=== PATIENT | male | born 1990 | race African-American/Black ===

== ENCOUNTER 2025-01-23 11:06 | Outpatient (CLI) | payer OTHER, SELFPAY ==
[2025-01-23 11:52] LABS: Alanine Aminotransferase 92 U/L (6-50); Alkaline Phosphatase 85 U/L (38-126); Anion Gap 10 mmol/L (4-12); Aspartate Amino Transferase 44 U/L (17-59); Bilirubin,Total 0.5 mg/dL (0.2-1.3); Blood Urea Nitrogen 11 mg/dL (9-20); Calcium 9.4 mg/dL (8.4-10.2); Carbon Dioxide 26 mmol/L (22-30); Chloride 105 mmol/L (98-107); Estimated Glomerular Filt Rate > 60; Glucose 102 mg/dL (65-110); Potassium 4.3 mmol/L (3.4-5.0); Sodium 141 mmol/L (137-145)
[2025-01-23 12:23] LABS: Free T4 Free Thyroxine 1.85 ng/dL (0.78-2.19); Thyroid Stimulating Hormone 0.707 uIU/mL (0.465-4.680); Vitamin D 25 Hydroxy 33.2 ng/mL
[2025-01-23 12:40] LABS: Hemoglobin A1C 5.4 % (<5.7)
--- OUTSIDE RECORDS SUMMARY | 2025-01-23 16:26 | XMS_ITS | Clinical Summary ---
Author Organization [facility] Address [address] [place] [address] Care Team Providers Care Heating Equipment Installer Name Role Phone None, Provider MD Primary Care Provider Unavaila ble Allergies Active Allergy Reactions Criticality Noted Date Comments Amoxicillin Other (see comment) 01/30/2022 Pt reports he is unsure of reaction Medications levothyroxine (SYNTHROID) 125 MCG tablet Take 1 tablet (125 mcg total) by mouth every 7 days. Active levothyroxine (SYNTHROID) 150 MCG tablet Take 1 tablet (150 mcg total) by mouth 6 (six) times a week. Active Vitamin D3 (VITAMIN D) 50 mcg tablet Take 25 tablets (50,000 Units total) by mouth daily. Active Azelastine HCl 0.15 % Solution 1 spray by Nasal route 2 (two) times a day. 11 mL 12/09/2023 Active albuterol sulfate HFA 108 (90 Base) MCG/ACT inhaler Inhale 2 puffs into the lungs every 6 (six) hours as needed for Wheezing. 8 g 12/21/2024 Active Encounters Date Type Department Care Team Description 12/20/2024 10:59 PM CDT - 12/21/2024 12:13 AM CDT Emergency [facility] [place] [address] Cheli Retana PA Flu Like Symptoms Discharge Disposition: Home or Self Care (Routine Discharge) 12/20/2024 Travel from Last 3 Months Social History Tobacco Use Types Packs/Day Years Used Date Smoking Tobacco: Never Smokeless Tobacco: Never Alcohol Use Standard Drinks/Week Comments Never 0 (1 standard drink = 0.6 oz pur e alcohol) Sex and Gender Information Value Date Recorded Sex Assigned at Not on file Legal Sex Male 9:00 AM CDT Gender Identity Not on file Sexual Orientation Not on file Last Filed Vital Signs Vital Sign Reading Time Taken Comments Blood Pressure 149/85 12/20/2024 10:37 PM CDT Pulse 81 12/20/2024 10:37 PM CDT Temperature 37.2 C (98.9 F) 12/20/2024 10:37 PM CDT Respiratory Rate 18 12/20/2024 10:37 PM CDT Oxygen Saturation 96% 12/20/2024 10:37 PM CDT Inhaled Oxygen Concentration - - Weight 104.3 kg (230 lb) 12/20/2024 10:37 PM CDT Height 175.3 cm (5' 9 ) 12/20/2024 10:37 PM CDT Body Mass Index 33.97 12/20/2024 10:37 PM CDT Plan of Treatment Health Maintenance Due Date Last Done Comments Annual Physical 1994 Hepatitis C 2009 COVID-19 Vaccine ( season) 2024 01/06/2021, 12/08/2020 DTaP, Tdap and Td Vaccines (8 - Td or Tdap) 09/05/2030 09/05/2020, 08/31/2010, 08/10/2003, Additional history exists Hepatitis B Vaccines Completed 12/20/1999, 04/24/1999, 09/02/1998 Meningococcal Vaccine Completed 08/31/2010, 007 HPV Vaccines Completed 03/16/2019, 07/25, 06/09/2012 Meningococcal B Vaccine Aged Out No l onger eligible based on patient's age to complete this topic Pneumococcal Vaccine: Pediatrics (0 to 5 Years) and At-Risk Patients (6 to 49 Years) Aged Out No longer eligible based on patient's age to complete this topic RSV Immunizations Under 20 Months Aged Out No longer eligible based on patient's age to complete this topic Procedures Procedure Name Priority Date/Time Associated Diagnosis Comments XR CHEST PORTABLE STAT 12/20/2024 11: 19 PM CDT STREP A RAPID STAT 12/20/2024 10:54 PM CDT INFLUENZA A & B STAT 12/20/2024 10:54 PM CDT CORONAVIRUS (COVID 19) STAT 12/20/2024 10:54 PM CDT from Last 3 Months Results * XR CHEST PORTABLE (12/20/2024 11:19 PM CDT) Anatomical Region Laterality Modality Chest Radiographic Cristy ging 12/20/2024 11:3 6 PM CDT Impressions 12/20/2024 11:38 PM CDT IMPRESSION: No acute chest disease identified. Referred By: Interpreted By: Misael Callejas MD, 12/20/2024 11:36 PM Narrative 12/20/2024 11:38 PM CDT [place] [address] Examination: XR CHEST PORTABLE Exam time: 12/20/2024 10:56 PM Clinical history: Cough and shortness of breath. Comparison: No comparison. Technique: AP image of the chest. Findings: The cardiomediastinal silhouette appears normal. There is no pulmonary consolidation, pleural effusion or pneumothorax. The pulmonary vasculature appears normal. Procedure Note Misael Callejas MD - 12/20/[address] [address] Examination: XR CHEST PORTABLE Exam time: 12/20/2024 10:56 PM Clinical history: Cough and shortness of breath. Comparison: No comparison. Technique: AP image of the chest. Findings: The cardiomediastinal silhouette appears normal. There is no pulmonaryconsolidation, pleural effusion or pneumothorax. The pulmonary vasculatureappears normal. IMPRESSION: No acute chest disease identified. Referred By: Interpreted By: Misael Callejas MD, 12/20/2024 11:36 PM [facility] Final Result * CORONAVIRUS (COVID 19) (12/20/2024 10:54 PM CDT) CORONAVIRUS SARS COV 2 RNA NEGATIVE NEGATIVE 12/20/2024 11:16 PM CDT [facility] Comment: NEGATIVE RESULTS DO NOT RULE OUT COVID 19 AND SHOULD NOT BE USED THE SOLE BASIS FOR TREATMENT OR PATIENT MANAGEMENT DECISIONS, INCLUDING INFECTION CONTROL DECISIONS. NEGATIVE RESULTS SHOULD BE CONSIDERED IN THE CONTEXT OF A PATIENT'S RECENT EXPOSURES, HISTORY AND THE PRESENCE OF CLINICAL SIGNS AND SYMPTOMS CONSISTENT WITH COVID 19. THE ID NOW COVID-19 2.0 TEST HAS BEEN AUTHORIZED BY THE FDA UNDER EAU FOR USE BY AUTHORIZED LABORATORIES. PERFORMED BY NUCLEIC ACID AMPLIFICATION FOR MOLECULAR QUALITATIVE DETECTION OF SARS-COV-2. SPECIMEN TYPE NASAL 12/20/2024 10:54 PM CDT [facility] NASAL STRUCTURE / Unknown 12/20/2024 10:54 PM CDT [facility] - GENERAL ORDERAB LES Final Result [facility] [address] [place] [address], [place] [phone] * INFLUENZA A & B (12/20/2024 10:54 PM CDT) SPECIMEN TYPE SWAB 12/20/2024 11:00 PM CDT [facility] INFLUENZA A NEGATIVE NEGATIVE 12/20/2024 11:23 PM CDT [facility] INFLUENZA B NEGATIVE NEGATIVE 12/20/2024 11:23 PM CDT [facility] Comment: Interpretation: Negative for Influenza A and B. A negative result does not exclude influenza virus infection. If influenza is circulating in your community, a diagnosis of influenza should be considered based on a patient's clinical presentation and empiric antiviral treatment should be considered, if indicated. If more conclusive testing is needed for hospitalized inpatients, follow-up confirmatory testing with RT-PCR requires a separate order. NASAL STRUCTURE / Unknown 12/20/2024 10:54 PM CDT [facility] - GENERAL ORDERAB LES Final Result [facility] [address] [place] [id number], [place] [phone] * STREP A RAPID (12/20/2024 10:54 PM CDT) SPECIMEN TYPE THROAT 12/20/2024 10:54 PM CDT [facility] RAPID STREP TEST NEGATIVE NEGATIVE 12/20/2024 11:14 PM CDT [facility] STRUCTURE OF ANTERIOR PORTION OF NECK / Unknown 12/20/2024 10:54 PM CDT [facility] - GENERAL ORDERAB LES Final Result Performing Organization Address City/[facility]/ZIP Co de Phone Number [facility] [address] [place] [address], [place] [phone] from Last 3 Months Insurance [facility] Care Teams Heating Equipment Installer Relationship Specialty Start Date End Date None, Provider, PCP - General UNKNOWN PHYSICIAN SPECIALTY 12/09/23
--- OUTSIDE RECORDS SUMMARY | 2025-01-23 16:27 | XMS_ITS | Clinical Summary ---
Author Organization [facility] Address [address] [place] [address] Care Team Providers Care Instructor Creeler Name Role Phone Manny Serrato PA-C Primary Care Provider Source Comments [facility],non-owned Affiliates and Associated Physician Practices is amultiple site organization consisting of ambulatory clinics and hospital sitesin [place], [place], [place] and [place]. This disclosure is being madepursuant to the Care Everywhere program and may not contain all information available regarding this patient. Last updated 18.[facility] Allergies Active Allergy Reactions Criticality Noted Date Comments Amoxicillin Urticaria,Rash Medium 10/08/1993 Medications * Be aware that medications may not be up to date on this document. Alwaysverify current medications with the patient. No known medications Immunizations Immunization Administration Dates Next Due INFLUENZA VACCINE, TRIV. (AF LURIA, FLUZONE TRIVALENT; 6MO+) (IIV3) 07/28/2012,05/14/2011 ANTHRAX, HISTORIC VACCINE 12/28/2011,,01/03/2011,11/28 Covid Moderna primary monova lent 12+ yr 0.5mL 01/06/2021,12/08/2020 DTP 07/08/1996, 4,07/11/1992,04/18,1991 FLU VACCINE QUAD IIV4 SPLIT 0.25 ML IM 6 HEP B VACCINE, PED/ADOL 12/20/1999,04/24/1999, HIB VACCINE 03/06/1994, 2,04/18/1992,12/20 Human Papilloma Virus Nineva lent Vaccine 03/16/2019 Human Papilloma Virus Justine valent Vaccine 08/13/2012,06/09/2012 INFLUENZA VACCINE 06/23/2021 INFLUENZA VACCINE, CELL CULT URE, QUADR. (FLUCELVAX QUADRIVALENT; 6MO+), 0.5 ML (CCIIV4) 07/04/2017 INFLUENZA VACCINE, QUADR. (A FLURIA, FLUZONE QUADRIVALENT; 6MO+) (IIV4) 08/31/2010,08/10/2003 INFLUENZA VACCINE, QUADR. (F LUZONE; FLULAVAL; FLUARIX; AFLURIA QUADRIVALENT; 6MO+), 0.5 ML (IIV4) 08/29/2020,06/19/2019,07/03/2018 LEDA VACCINE QUAD LAIV4 PF NASAL 08/16/2015,2013,06/03/2013 MENINGOCOCCAL ACWY (MCV4P) VAC IM 08/31/2010, MMR 07/08/1996,03/06/1994 POLIO IPV 08/31/2010 POLIO OPV 07/08/1996, 4,04/18/1992,12/20 SMALLPOX (VACCINIA) VACCINE, LIVE 11/28/2010 TDAP (7yrs+) 08/31/2010 TYPHOID IM 06/16/2019,01/20/2015,11/28/2010 Td (Adult), 2 Lf Tetanus Tox oid, Adsorbed, Pf 09/05/2020,08/10/2003 Family History Medical History Relation Name Comments Diabetes - Type 2 Maternal Grandmother Bipolar Disorder Mother Depression Mother Relation Name Status Comments Father Alive Maternal Grandfather Alive Maternal Grandmother Alive Mother Alive Social History Tobacco Use Types Packs/Day Years Used Date Smoking Tobacco: Never Smokeless Tobacco: Never Alcohol Use Standard Drinks/Week Comments Yes 0 (1 standard drink = 0.6 oz pur e alcohol) occ AUDIT-C Answer Date Recorded Q1: How often do you have a drink containing alc ohol? Monthly or less 10/23/2021 Q2: How many drinks containi ng alcohol do you have on a typical day when you are drinking? 1 or 2 10/23/2021 Q3: How often do you have si x or more drinks on one occasion? Never 10/23/2021 PHQ-2 Answer Date Recorded PHQ2 TOTAL SCORE 0 10/23/2021 Sex and Gender Information Value Date Recorded Sex Assigned at Not on file Legal Sex Male 2:21 PM ENGINE MECHANIC Gender Identity Not on file Sexual Orientation Not on file Last Filed Vital Signs Vital Sign Reading Time Taken Comments Blood Pressure 118/72 10/23/2021 1:52 PM ENGINE MECHANIC Pulse 90 10/23/2021 1:52 PM ENGINE MECHANIC Temperature 36.8 C (98.2 F) 10/23/2021 1:52 PM ENGINE MECHANIC Respiratory Rate - - Oxygen Saturation 97% 10/23/2021 1:52 PM ENGINE MECHANIC Inhaled Oxygen Concentration - - Weight 81.5 kg (179 lb 9.6 oz) 10/23/2021 1:52 P M ENGINE MECHANIC Height - - Body Mass Index - - Plan of Treatment Health Maintenance Due Date Last Done Comments HIV SCREENING 2006 HEPATITIS C SCREENING 10/11/2009 COVID-19 VACCINE ( season) 2024 01/06/2021, 12/08/2020 DEPRESSION SCREENING 09/23/2024 INFLUENZA VACCINE (Season Ended) 2025 06/23/2021, 08/29/2020, 06/19/2019, Additional history exists DTAP/TDAP/TD VACCINES (8 - Td or Tdap) 09/05/2030 09/05/2020, 08/31/2010, 08/10/2003, Additional history exists ZOSTER VACCINE (1 of 2) 2041 HIB VACCINE Completed 03/06/1994, 06/23, 04/18/1992, Additional history exists HEPATITIS B VACCINE Completed 12/20/1999, 04/24/1999, 09/02/1998 MENINGOCOCCAL GROUPS A/C/Y/W VACCINE Completed 08/31/2010, 07/22/2007 HPV VACCINE Completed 03/16/2019, 07/25, 06/09/2012 MENINGOCOCCAL (Group B) VACCINE SHARED DECISION-MAKING Aged Out No longer eligible based on patient's age to complete this topic PNEUMOCOCCAL VACCINE Aged Out No long er eligible based on patient's age to complete this topic Insurance [employer] Care Teams Instructor Creeler Relationship Specialty Start Date End Date Manny Serrato PA-C [address] [phone] PCP - General 10/20/21
--- OUTSIDE RECORDS SUMMARY | 2025-01-23 16:27 | XMS_ITS | Continuity of Care Document ---
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 1 2009 [id number] 115 [facility] ([facility]) complet ed tetanus toxoid, reduced diphtheri a toxoid, and acellular pertussis vaccine, adsorbed DoD meningococcal A,C,Y,W-135 (MCV4P) 2006 [id number] 114 sanofi pasteur complet ed meningoco ccal A,C,Y,W-1 35 (MCV4P) 07/22/07 Given Ambulat ory Pharmac y meningococcal polysaccharid e (groups A, C, Y and W-135) diphtheria toxoid conjugate vaccine (MCV4P) 1 2006 [id number] 114 Sanofi Pasteur ([facility]) complet ed meningoco ccal polysacch aride (groups A, C, Y and W-135) diphtheri a toxoid conjugate vaccine (MCV4P) DoD Hep A, pediatric, unspecified formul 2003 [id number] 2 31 [employer] ne complet ed Hep A, pediatric , unspecifi ed formul 05/23/04 Given Ambulat ory Pharmac y hepatitis A vaccine, pediatric dosage, unspecified formulation 2 2003 [id number] 2 31 [employer] ([facility]) complet ed hepatitis A vaccine, pediatric dosage, unspecifi ed formulati on DoD Hep A, pediatric, unspecified formul 2002 [id number] 2 31 GlaxoSmithK[employer] ne complet ed Hep A, pediatric , unspecifi ed formul 08/10/03 Given Ambulat ory Pharmac y influenza virus vaccine,split 2002 [id number] 15 Nov[employer]is [employer] ls complet ed influenza virus vaccine,s plit 08/10/03 Given Ambulat ory Pharmac y tetanus-dipht h toxoids (Td) adult/adol 2002 [id number] 09 sanofi pasteur complet ed tetanus-d iphth toxoids (Td) adult/ado l 08/10/03 Given Ambulat ory Pharmac y tetanus and diphtheria toxoids, adsorbed, preservative free, for adult use (2 Lf of tetanus toxoid and 2 Lf of diphtheria toxoid) 1 2002 [id number] 09 Sanofi Pasteur ([facility]) complet ed tetanus and diphtheri a toxoids, adsorbed, preservat chapito free, for adult use (2 Lf of tetanus toxoid and 2 Lf of diphtheri a toxoid) DoD influenza virus vaccine, split virus (incl. purified surface antigen)-reti red CODE 1 2002 [id number] 15 [employer] (PWJ) complet ed influenza virus vaccine, split virus (incl. purified surface antigen)- retired CODE DoD influenza virus vaccine, whole virus 0 2002 [id number] 16 [employer] (PWJ) complet ed influenza virus vaccine, whole virus DoD varicella virus vaccine 0 2002 21 () Not Given varicella virus vaccine DoD hepatitis A vaccine, pediatric dosage, unspecified formulation 1 2002 [id number] 2 31 SmithKline ([facility]) complet ed hepatitis A vaccine, pediatric dosage, unspecifi ed formulati on DoD hepatitis B pediatric/ado lescent 1999 [id number] 08 Merck & Company Inc complet ed hepatitis B pediatric /adolesce nt 12/20/99 Given Ambulat ory Pharmac y hepatitis B vaccine, pediatric or pediatric/ado lescent dosage 3 1999 [id number] 08 Merck (MSD) complet ed hepatitis B vaccine, pediatric or pediatric /adolesce nt dosage DoD hepatitis B pediatric/ado lescent 1998 08 complet ed hepatitis B pediatric /adolesce nt 04/24/99 Given Ambulat ory Pharmac y hepatitis B vaccine, pediatric or pediatric/ado lescent dosage 2 1998 08 () complet ed hepatitis B vaccine, pediatric or pediatric /adolesce nt dosage DoD hepatitis B pediatric/ado lescent 1997 [id number] 08 Merck & Company Inc complet ed hepatitis B pediatric /adolesce nt 09/02/98 Given Ambulat ory Pharmac y hepatitis B vaccine, pediatric or pediatric/ado lescent dosage 1 1997 [id number] 08 Merck (MSD) complet ed hepatitis B vaccine, pediatric or pediatric /adolesce nt dosage DoD measles/mumps /rubella virus vaccine 1995 TRANSCR IBED 03 Unknown complet ed measles/m umps/rube lla virus vaccine 07/08/96 Given Ambulat ory Pharmac y diphtheria/te tanus toxoids/pertu is 1995 TRANSCR IBED 01 Unknown complet ed diphtheri a/tetanus toxoids/p ertussis 07/08/96 Given Ambulat ory Pharmac y poliovirus vaccine, live, oral 1995 TRANSCR IBED 02 Unknown complet ed polioviru s vaccine, live, oral 07/08/96 Given Ambulat ory Pharmac y diphtheria, tetanus toxoids and pertu is vaccine 5 1995 01 Other (OTH) complet ed diphtheri a, tetanus toxoids and pertussis vaccine DoD trivalent poliovirus vaccine, live, oral 4 1995 02 Other (OTH) complet ed trivalent polioviru s vaccine, live, oral DoD measles, mumps and rubella virus vaccine 2 1995 03 Other (OTH) complet ed measles, mumps and rubella virus vaccine DoD Hib, unspecified formulation 1993 TRANSCR IBED 17 Unknown complet ed Hib, unspecifi ed formulati on 03/06/94 Given Ambulat ory Pharmac y measles/mumps /rubella virus vaccine 1993 TRANSCR IBED 03 Unknown complet ed measles/m umps/rube lla virus vaccine 03/06/94 Given Ambulat ory Pharmac y poliovirus vaccine, live, oral 1993 TRANSCR IBED 02 Unknown complet ed polioviru s vaccine, live, oral 03/06/94 Given Ambulat ory Pharmac y diphtheria/te tanus toxoids/pertu is 1993 TRANSCR IBED 01 Unknown complet ed diphtheri a/tetanus toxoids/p ertussis 03/06/94 Given Ambulat ory Pharmac y diphtheria, tetanus toxoids and pertu is vaccine 4 1993 01 Other (OTH) complet ed diphtheri a, tetanus toxoids and pertussis vaccine DoD trivalent poliovirus vaccine, live, oral 3 1993 02 Other (OTH) complet ed trivalent polioviru s vaccine, live, oral DoD measles, mumps and rubella virus vaccine 1 1993 03 Other (OTH) complet ed measles, mumps and rubella virus vaccine DoD Haemophilus influenzae type b vaccine, conjugate unspecified formulation 4 1993 17 Other (OTH) complet ed Haemophil us influenza e type b vaccine, conjugate unspecifi ed formulati on DoD Hib, unspecified formulation 1991 TRANSCR IBED 17 Unknown complet ed Hib, unspecifi ed formulati on 07/11/92 Given Ambulat ory Pharmac y diphtheria/te tanus toxoids/pertu is 1991 TRANSCR IBED 01 Unknown complet ed diphtheri a/tetanus toxoids/p ertussis 07/11/92 Given Ambulat ory Pharmac y diphtheria, tetanus toxoids and pertu is vaccine 3 1991 01 Other (OTH) complet ed diphtheri a, tetanus toxoids and pertussis vaccine DoD Haemophilus influenzae type b vaccine, conjugate unspecified formulation 3 1991 17 Other (OTH) complet ed Haemophil us influenza e type b vaccine, conjugate unspecifi ed formulati on DoD Hib, unspecified formulation 1991 TRANSCR IBED 17 Unknown complet ed Hib, unspecifi ed formulati on 04/18/92 Given Ambulat ory Pharmac y diphtheria/te tanus toxoids/pertu is 1991 TRANSCR IBED 01 Unknown complet ed diphtheri a/tetanus toxoids/p ertussis 04/18/92 Given Ambulat ory Pharmac y poliovirus vaccine, live, oral 1991 TRANSCR IBED 02 Unknown complet ed polioviru s vaccine, live, oral 04/18/92 Given Ambulat ory Pharmac y diphtheria, tetanus toxoids and pertu is vaccine 2 1991 01 Other (OTH) complet ed diphtheri a, tetanus toxoids and pertussis vaccine DoD trivalent poliovirus vaccine, live, oral 2 1991 02 Other (OTH) complet ed trivalent polioviru s vaccine, live, oral DoD Haemophilus influenzae type b vaccine, conjugate unspecified formulation 2 1991 17 Other (OTH) complet ed Haemophil us influenza e type b vaccine, conjugate unspecifi ed formulati on DoD diphtheria/te tanus toxoids/pertu is 1991 TRANSCR IBED 01 Unknown complet ed diphtheri a/tetanus toxoids/p ertussis 91 Given Ambulat ory Pharmac y Hib, unspecified formulation 1991 TRANSCR IBED 17 Unknown complet ed Hib, unspecifi ed formulati on 91 Given Ambulat ory Pharmac y poliovirus vaccine, live, oral 1991 TRANSCR IBED 02 Unknown complet ed polioviru s vaccine, live, oral 91 Given Ambulat ory Pharmac y diphtheria, tetanus toxoids and pertu is vaccine 1 1991 01 Other (OTH) complet ed diphtheri a, tetanus toxoids and pertussis vaccine DoD trivalent poliovirus vaccine, live, oral 1 1991 02 Other (OTH) complet ed trivalent polioviru s vaccine, live, oral DoD Haemophilus influenzae type b vaccine, conjugate unspecified formulation 1 1991 17 Other (OTH) complet ed Haemophil us influenza e type b vaccine, conjugate unspecifi ed formulati on DoD Results Combined list of recent chemistry, hematology and other laboratory results from [facility] and [facility], ranging from 15 months to all on record, depending upon the facility. Order Name Results Value Reference Range Date Interpretation Specimen Comments Source Chemistry TSH 0.789 mIU/L 0.270 - 4.200 06/29 N Interpretiv e Data: Recommend: TPO/Thyrope roxidase Antibody when TSH result is > 4.2 uIU/mL 5600[facility] Chemistry Sodium 142 mmol/L 136 - 145 06/29 N 0055A-3 [facility] Chemistry Glucose Lvl 100 mg/dL 74 - 99 06/29 H 0055A-3 [facility] Chemistry Potassium Lvl 3.5 mmol/L 3.5 - 5.1 06/29 N 0055A-[address] [place] [address]- [facility] AGAP 7.00 0.00 - 15.00 06/29 N 0055A-3 [facility] Chemistry Creatinine Level 1.00 mg/dL 0.72 - 1.25 06/29 N 0055A-[address] [place] [address]- [facility] BUN 9 mg/dL 8 - 26 06/29 N 0055A-[address] [place] [address]- [facility] CO2 25 mmol/L 22 - 29 06/29 N 0055A-[address] [place] [address]- [facility] Calcium 9.4 mg/dL 8.4 - 10.2 06/29 N 0055A-3 [facility] Chemistry Chloride 110 mmol/L 98 - 107 06/29 H 0055A-3 [facility] Chemistry BUN/Creat Ratio 9 mg/dL 12 - 20 06/29 L 0055A-3 [facility] Chemistry eGFR CKD EPI 103 mL/min/1 .73_m2 06/29 Interpretiv e Data: Estimated Glomerular Filtration Rate (eGFR) calculated using the 2020 Chronic Kidney Disease-Epi demiology (CKD-EPI) Collaborati on creatinine equation; units of measure are mL/min/1.73 m2. Results are only valid for adults (>=18 years) whose serum creatinine is in steady state. eGFR calculation s are not valid for patients with acute kidney injury and for patients on dialysis. Creatinine- based estimates of kidney function may also be inaccurate in patients with reduced creatinine generation due to decreased muscle mass (e.g., malnutritio n, severe hypoalbumin emia, sarcopenia, chronic neuromuscul ar disease, amputations , severe heart failure or liver disease) and in patients with increased creatinine generation due to increased muscle mass (e.g., muscle builders, anabolic steroids) or increased dietary intake. CKD is diagnosed based on abnormaliti es of kidney structure or function, present for >3 months, with implication s for health and disease. CKD is classified and staged based on cause, eGFR and albuminuria (quantified as urine albumin to creatinine ratio). An eGFR >60 mL/min/1.73 m2 in the absence of increased urine albumin excretion or structural abnormaliti es does not CKD. eGFR provides only an estimate of measured GFR within +/- 30% for most patients. As mentioned, nutritional status and muscle mass, among many factors, may lead to inaccuracy in the estimate. Consider ordering the creatinine- cystatin C panel if better accuracy is needed for clinical decision-miguel ángel betancourt. eGFR (mL/min/1.7 3 m2) CKD stage Interpretat ion Normal 60-89 Mild decrease 45-59 Mild to moderate decrease 30-44 Moderate to severe decrease 15-29 Severe decrease <15 Kidney failure 0055A-3 [facility] Chemistry TSH 1.170 mIU/L 0.270 - 4.200 02/18 N Interpretiv e Data: Recommend: TPO/Thyrope roxidase Antibody when TSH result is > 4.2 uIU/mL 5600A[facility]U [facility] Chemistry Glucose Fasting 87 mg/dL 74 - 99 12/15 N 0055A-3 [facility] Immunolog y/Serolog y Endomysial Ab IgA LC Negative 12/10 Result Comment: Performed At: [address] [id number] Michael Otoole PhD Ph:[phone] 00 5A-3 [facility] Immunolog y/Serolog y Deamidated Gliadin IgG LC 4 unit(s) 12/10 Result Comment: Negative 0 - 19 Weak Positive 20 - 30 Moderate to Strong Positive >30 Performed At: 01 [facility] [address] [place] [id number] Michael Otoole PhD Ph:[phone] 00 5A-3 [facility]/Serolog y Deamidated Gliadin IgA LC 4 unit(s) 12/10 Result Comment: Negative 0 - 19 Weak Positive 20 - 30 Moderate to Strong Positive >30 5A-3 [facility] Immunolog y/Serolog y Anti-tissue Transglutam inase (tTG) IgG Negative 15 (12/11/23 2:26 PM) 12/10 N Interpretiv e Data: Normal Value: Negative This assay is designed for the in-vitro measurement of specific IgG autoantibod ies against tissue transglutam inase (tTG) present in human serum, as an aid in the diagnosis for Celiac disease. The performance characteris tics of this assay have not been evaluated for use in pediatric populations . Methodology : Enzyme-Link ed Immunosorbe nt Assay (AMALAI) 5600A-U [facility] EP[facility] Immunolog y/Serolog y Gliadin IgA Negative GPI IgA units 12/10 N Interpretiv e Data: Normal Value: Negative The following results were obtained with the [employer] QUANTA Lite Gliadin IgA II. Gliadin IgA values obtained with different manufacture rs' assay methods may not be used interchange ably. The magnitude of the reported IgA levels cannot be correlated to an endpoint titer. Methodology : Enzyme-Link ed Immunosorbe nt Assay (AMALIA) 5600A-U [facility] Immunolog y/Serolog y Gliadin IgG Negative GPI IgG units 12/10 N Interpretiv e Data: Normal Value: Negative The following results were obtained with the [employer] QUANTA Lite Gliadin IgG. Gliadin IgG values obtained with different manufacture rs' assay methods may not be used interchange ably. The magnitude of the reported IgG levels cannot be correlated to an endpoint titer. Methodology : Enzyme-Link ed Immunosorbe nt Assay (AMALIA) 5600A-U [facility] Immunolog y/Serolog y Immunoglob A 56 mg/dL 70 - 400 12/10 L Interpretiv e Data: Methodology : Immunoturbi dimetric assay 5600A-U [facility] Infectiou s Disease HIV-1/O/2 Non-Reac tive 13 (12/04/23 3:12 PM) 12/03 N Interpretiv e Data: INTERPRETAT ION: This method is a screening procedure for the detection of HIV p24 Antigen and Antibodies to HIV-1, including Group O, and/or HIV-2. NON-REACTIV E: HIV-1 antigen and HIV-1 / HIV-2 antibodies were not detected. No laboratory evidence of HIV infection. A negative test result does not exclude the possibility of exposure to or infection with HIV. HIV antibodies and/or p24 antigen may be undetectabl e in some stages of the infection and in some clinical conditions. If acute HIV infection is suspected, consider submitting another specimen to a reference laboratory for HIV-1 RNA. SCREEN REACTIVE - CONFIRMATIO N TO FOLLOW: Possible presence of HIV-1antibo dies, HIV-2 antibodies and/or HIV-1 p24 antigen. Specimen will reflex to the confirmatio n testing that fulfills the Center for Disease Control and Prevention' s HIV diagnostic algorithm. Refer to [facility] Lab Guide for additional information : [email or web address] [email or web address]/ [email or web address] x Testing performed by [employer]. 5600A-U [facility] Chemistry TSH 9.260 mIU/L 0.270 - 4.200 12/03 H Interpretiv e Data: Recommend: TPO/Thyrope roxidase Antibody when TSH result is > 4.2 uIU/mL 5600A-U [employer] Chemistry Vitamin D 25 OH 30.8 ng/mL 30.0 - 100.0 12/03 N Interpretiv e Data: Classificat ion of Vitamin D Status: Deficient: <20 ng/mL Insufficien t: 20-29 ng/mL Sufficient: 30-100 ng/mL Possible Toxicity: >100 ng/mL This assay is for the quantitativ e determinati on of total 25 (OH) vitamin D. It is intended as an aid in the determinati on of vitamin D sufficiency . Results should always be interpreted in conjunction with the patient's medical history, clinical presentatio n, and other findings. Testing performed by [employer]. 5600A[facility]U [facility] Chemistry T4 Free 1.62 ng/dL 0.93 - 1.70 12/03 N Interpretiv e Data: METHODOLOGY : Testing performed by electrochem iluminescen t immunoassay (ECLIA). 5600A-U [facility] Molecular Infectiou s Disease GC NAAT, Ur Not Detected 18 (12/04/23 3:12 PM) 12/03 N Interpretiv e Data: NAAT = Nucleic acid amplificati on test A positive result indicates that DNA of Chlamydia trachomatis (CT) and/or Neisseria gonorrhoeae (GC) is present in the specimen tested and strongly supports a diagnosis of chlamydial/ gonorrheal infection. A negative result indicates that DNA for CT and/or GC was not detected in the specimen. An indetermina te result indicates that a specimen contains inhibitory substances that prevent nucleic acid target extraction and/or amplificati on and detection. See the Limitation s section in the Lab Guide for known interfering substances. The performance of this assay has not been evaluated in adolescents less than 14 years of age. This report is intended for use in clinical monitoring or management of patients; it is not intended for use in medico-lega l application s. The assay has not been evaluated with patients who are currently being treated with antimicrobi al agents active against CT or GC as well as patients with a history of hysterectom y. In general, this assay should not be used to assess therapeutic success or failure since nucleic acids from these organisms may persist for 3 weeks or more following antimicrobi al therapy. The predictive value of an assay depends on the prevalence of the disease in any particular population. In settings with a high prevalence of sexually transmitted disease, positive assay results have a high likelihood of being true positives. In settings with a low prevalence of sexually transmitted disease, or in any setting in which a patient's clinical signs and symptoms or risk factors are inconsisten t with gonococcal or chlamydial urogenital infection, positive results should be carefully assessed and the patient retested by other methods (e.g., culture for Neisseria gonorrhoeae ), if appropriate . The prevalence for all specimens tested in this laboratory is 5% for CT and 0.5% for GC. At this prevalence, the manufacture r estimates the overall sensitivity and specificity for CT to be 94.1% and 99.6% respectivel y. For GC the sensitivity and specificity rates are 97.1% and 99.8%. The Positive Predictive Value and the Negative Predictive Value calculated by the manufacture r using the above clinical trial data are 92% and 99.7% for CT and 82% and 100% for GC. Results should be interpreted in conjunction with other laboratory and clinical information . A negative result does not exclude the possibility of infection. Improper specimen collection, concurrent antibiotic therapy, presence of inhibitors, or low numbers of organisms in the specimen may cause false-negat chapito results. If clinical indications strongly suggest gonococcal or chlamydial infection, additional specimens should be collected for testing. Testing of urine specimens with this method is not intended to replace a cervical exam and endocervica l sampling for diagnosis of urogenital infection. A first catch urine specimen is acceptable but may detect up to 10% fewer infections when compared with vaginal and endocervica l swab specimens. Methodology : NAAT Notifiable result/cond ition for Local/[facility] department. Notify your local [facility] public health immediately for proper notificatio n. 5600A-U [facility] EP[facility] Molecular Infectiou s Disease Chlamydia NAAT, Ur Not Detected (12/04/23 3:12 PM) 12/03 N 5600A-U [facility] Immunolog y/Serolog y Treponema pallidum Ab Non-Reac tive 9 (12/04/23 3:12 PM) 12/03 N Interpretiv e Data: NON-REACTIV E: No laboratory evidence of syphilis infection. A negative result cannot exclude incubating or early primary syphilis. If recent exposure is suspected, submit another sample in 2 - 4 weeks to repeat testing. REACTIVE: Suggest infection with Treponema pallidum at some point in the past, but does not distinguish between treated and untreated infection. All REACTIVE results will automatical ly reflex to a supplementa l Syphilis assay in accordance to the Center for Disease Control and Prevention (CDC) diagnostic algorithm. Methodology : Electrochem iluminescen t immunoassay (ECLIA) The performance characteris tics of this assay have not been evaluated for use in pediatric populations . Notifiable result/cond ition for Local/State Public Health () department, notify your local [facility] immediately for proper notificatio n. 5600A-U [facility] Chemistry TSH 10.600 mIU/L 0.270 - 4.200 07/31 H Interpretiv e Data: Recommend: TPO/Thyrope roxidase Antibody when TSH result is > 4.2 uIU/mL 5600A-U [employer] Chemistry Vitamin D 25 OH 23.3 ng/mL 30.0 - 100.0 07/31 L Interpretiv e Data: Classificat ion of Vitamin D Status: Deficient: <20 ng/mL Insufficien t: 20-29 ng/mL Sufficient: 30-100 ng/mL Possible Toxicity: >100 ng/mL This assay is for the quantitativ e determinati on of total 25 (OH) vitamin D. It is intended as an aid in the determinati on of vitamin D sufficiency . Results should always be interpreted in conjunction with the patient's medical history, clinical presentatio n, and other findings. Testing performed by [facility]. 5600A-U [employer] Miscellan eous Sendouts Repository Sample Received (07/29/23 11:34 AM) 07/29 N 5600A[facility]U [employer] Vital Signs Combined list of inpatient and outpatient Vital Signs from [facility] and [facility], ranging from 12 months to all on record, depending upon the facility. Vital Sign Value Date Comments Source Temperature Oral 36.8 Jennifer 07/27/2024 17:00:00 [facility] Peripheral Pulse Rate 68 bpm 07/27/2024 17:00:00 [facility] Respiratory Rate 16 br/min 07/27/2024 17:00:00 [facility] Systolic Blood Pressure 120 mm[Hg] 07/27/2024 17:00:00 [facility] Diastolic Blood Pressure 88 mm[Hg] 07/27/2024 17:00:00 [facility] Mean Arterial Pressure, Calc 99 mm[Hg] 07/27/2024 17:00:00 [facility] Temperature Oral 36.8 Jennifer 04/17/2024 14:34:00 [facility] Respiratory Rate 16 br/min 04/17/2024 14:34:00 [facility] Peripheral Pulse Rate 65 bpm 04/17/2024 14:34:00 [facility] Mean Arterial Pressure, Calc 102 mm[Hg] 04/17/2024 14:34:00 [facility] Systolic Blood Pressure 129 mm[Hg] 04/17/2024 14:34:00 [facility] Diastolic Blood Pressure 88 mm[Hg] 04/17/2024 14:34:00 [facility] BP Site Left arm 04/17/2024 14:34:00 [facility] Blood Pressure Manual Automatic 04/17/2024 14:34:00 [facility] Systolic Blood Pressure 115 mm[Hg] 08/28/2023 16:09:00 [facility] Diastolic Blood Pressure 77 mm[Hg] 08/28/2023 16:09:00 [facility] Peripheral Pulse Rate 57 bpm 08/28/2023 16:09:00 [facility] Respiratory Rate 14 br/min 08/28/2023 16:09:00 [facility] Mean Arterial Pressure, Calc 90 mm[Hg] 08/28/2023 16:09:00 [facility] BP Site Left arm 08/28/2023 16:09:00 [facility] Blood Pressure Manual Automatic 08/28/2023 16:09:00 [facility] Temperature Temporal Artery 36.6 Jennifer 08/28/2023 16:09:00 [facility] Blood Pressure Manual Automatic 12/19/2023 20:12:00 [facility] BP Site Left arm 12/19/2023 20:12:00 [facility] Respiratory Rate 16 br/min 12/19/2023 20:12:00 [facility] Peripheral Pulse Rate 56 bpm 12/19/2023 20:12:00 [facility] Mean Arterial Pressure, Calc 98 mm[Hg] 12/19/2023 20:12:00 [facility] Systolic Blood Pressure 131 mm[Hg] 12/19/2023 20:12:00 [facility] Diastolic Blood Pressure 82 mm[Hg] 12/19/2023 20:12:00 [facility] Temperature Oral 36.8 Jennifer 08/28/2023 21:03:00 [facility] Peripheral Pulse Rate 60 bpm 08/28/2023 21:03:00 [facility] Mean Arterial Pressure, Calc 95 mm[Hg] 08/28/2023 21:03:00 [facility] Respiratory Rate 16 br/min 08/28/2023 21:03:00 [facility] Systolic Blood Pressure 125 mm[Hg] 08/28/2023 21:03:00 [facility] Diastolic Blood Pressure 80 mm[Hg] 08/28/2023 21:03:00 [facility] Temperature Oral 36.6 Jennifer 12/12/2023 20:17:00 [facility] Systolic Blood Pressure 125 mm[Hg] 12/12/2023 20:17:00 [facility] Diastolic Blood Pressure 76 mm[Hg] 12/12/2023 20:17:00 [facility] BP Site Right arm 12/12/2023 20:17:00 [facility] Blood Pressure Manual Automatic 12/12/2023 20:17:00 [facility] Mean Arterial Pressure, Calc 92 mm[Hg] 12/12/2023 20:17:00 [facility] Peripheral Pulse Rate 98 bpm 12/12/2023 20:17:00 [facility] Respiratory Rate 16 br/min 12/12/2023 20:17:00 [facility] Temperature Oral 36.6 Jennifer 07/07/2024 19:36:00 [facility] Blood Pressure Manual Automatic 07/07/2024 19:36:00 [facility] BP Site Right arm 07/07/2024 19:36:00 [facility] Mean Arterial Pressure, Calc 100 mm[Hg] 07/07/2024 19:36:00 [facility] Peripheral Pulse Rate 61 bpm 07/07/2024 19:36:00 [facility] Respiratory Rate 16 br/min 07/07/2024 19:36:00 [facility] Systolic Blood Pressure 131 mm[Hg] 07/07/2024 19:36:00 [facility] Diastolic Blood Pressure 85 mm[Hg] 07/07/2024 19:36:00 [facility] Systolic Blood Pressure 124 mm[Hg] 06/29/2024 19:04:00 [facility] Diastolic Blood Pressure 72 mm[Hg] 06/29/2024 19:04:00 [facility] Respiratory Rate 16 br/min 06/29/2024 19:04:00 [facility] Peripheral Pulse Rate 64 bpm 06/29/2024 19:04:00 [facility] Mean Arterial Pressure, Calc 89 mm[Hg] 06/29/2024 19:04:00 [facility] Blood Pressure Manual Automatic 06/29/2024 19:04:00 [facility] Temperature Oral 36.7 Jennifer 06/29/2024 19:04:00 [facility] BP Site Right arm 06/29/2024 19:04:00 [facility] Encounters Combined list of: 1) Encounters from [facility] of Veterans Affairs facilities going backup to the last 18 months, not all VA inpatient encounters are included; 2) Encounters 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 Location Location Details Encounter Type Encounter Number Reason For Visit Attending Provider ADM Date DC Date Status Disposition Source [facility] OUTPATIENT [id number] back pain/pr REJI Coppola 10/08 Released w/o Limitations [facility]) [facility]) OUTPATIENT [id number] YR OLD SPORTS PHYSICA EDDIE LEIGH 07/22 Released w/o Limitations [employer] [facility]) [facility] OUTPATIENT [id number] C/O PAINFUL RT ANKLE WORSENI NG JESUS BAUER 03/30 Released w/o Limitations [employer] OUTPATIENT [id number] C/O COUGH/C ONGESTI ON IZABEL DEMARCO Arturo 01/12 Released w/o Limitations [employer]) [facility]) TELE CONSULT [id number] [facility] [employer] [facility]) [facility]) OUTPATIENT [id number] INJURY RELATED -DISCUS S KNEE PAIN JESUS BAUER 04/21 Released w/o Limitations [employer](P ediatri c Clinic) [place] [address](Opt ometry Clinic [facility]) OUTPATIENT [id number] DELILAH NIELSEN 09/08 Released w/o Limitations [facility] [place] [address](O ptometr y [facility] [place] [address]([facility] [place]) OUTPATIENT [id number] SMALLPO X IMMUNIZ MORENOTIMMY MILLER 11/28 Released w/o Limitations [facility] [place] [address](D [facility] [place] [address]([facility]) OUTPATIENT [id number] [place] MINH GAMING 01/22 Released w/o Limitations [facility] [place] [address]([facility]) [facility](War rior Operation al Med A-AD) OUTPATIENT [id number] Lt knee pain OMANJULA U 04/18 Released with Work/Duty Limitations [facility](W arrior Operati onal Med A-AD) [employer](War rior Operation al Med A-AD) TELE CONSULT [id number] x-ray results SARAH DIXON 04/19 Advice Assessment [employer](W arrior Operati onal Med A-AD) [employer](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) OUTPATIENT [id number] ARIEL GILLIS 05/16 Released w/o Limitations [employer](M edical Standar ds Managem ent) [employer] [facility]) OUTPATIENT [id number] eye exam GABINO VELOZ 06/05 Released w/o Limitations [employer]([facility]) [employer](War rior Operation al Med A-AD) OUTPATIENT [id number] injured foot f/u, had xrays 3 months ago but he never get called for result SERINA ZAVALETA 07/17 Released w/o Limitations [employer](W arrior Operati onal Med A-AD) [facility] [employer] [facility](Arnold n COUNTS INCLUDE 234 BEDS AT THE [facility] Team C) OUTPATIENT [id number] sleep SERINA Zamarripa 09/05 Released w/o Limitations [facility](O whitaker COUNTS INCLUDE 234 BEDS AT THE [facility] Team C) [employer](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) OUTPATIENT [id number] MALICK SAMANO 03/06 Released w/o Limitations [employer](M edical Standar ds Managem ent) [place] [facility] ([facility] OUTPATIENT [id number] Back and knee pain JENY PADRON 05/22 Released w/o Limitations [place] ([facility])) [place] ([facility]) OUTPATIENT [id number] PATELLO FEMORAL SYNDROM E LEFT KWAME ZARATE 06/09 Released w/o Limitations [facility] [place] [facility] [place] [facility] ([facility])) OUTPATIENT [id number] Notes Entered by: JOSEE BRAGA 09 Jun 2012 1117 ------- ------- ------- ------- -- HPV vaccine JAMAL ALMONTE 06/09 Released w/o Limitations [place]([facility] ([facility])) [facility] [place]) OUTPATIENT [id number] BRAULIO ZAPATA 06/10 Released w/o Limitations [facility] [place] [facility] [place] OUTPATIENT [id number] BRAULIO ZAPATA 06/12 Released w/o Limitations [facility] [facility] OUTPATIENT [id number] BRAULIO ZAPATA 06/17 Released w/o Limitations [place] [facility] [place] OUTPATIENT [id number] BRAULIO ZAPATA 06/19 Released w/o Limitations [place] [facility] [place] OUTPATIENT [id number] BRAULIO ZAPATA 06/24 Released w/o Limitations [place] [facility] [place] [facility]) OUTPATIENT [id number] BRAULIO ZAPATA 06/26 Released w/o Limitations [place] [facility] [place] OUTPATIENT [id number] BRAULIO ZAPATA 07/01 Released w/o Limitations [place] [place] OUTPATIENT [id number] BRAULIO ZAPATA 07/03 Released w/o Limitations [place] [place] [facility]) OUTPATIENT [id number] KWAME ZARATE 07/18 Released w/o Limitations [place] [place] [facility]) OUTPATIENT [id number] BRAULIO ZAPATA 07/22 Released w/o Limitations [place]) OUTPATIENT [id number] BRAULIO ZAPATA 07/24 Released w/o Limitations [place] [place] [facility] OUTPATIENT [id number] Notes Entered by: JOSEE BRAGA 28 Jul 2012 1248 ------- ------- ------- ------- -- influen za JAMAL ALMONTE 07/28 Released w/o Limitations [place] [place] [facility]) OUTPATIENT [id number] GEORGE VEGA JR 07/29 Released w/o Limitations [place] [place]) OUTPATIENT [id number] GEORGE VEGA JR 07/31 Released w/o Limitations [place] [place]) OUTPATIENT [id number] BRAULIO ZAPATA 08/05 Released w/o Limitations [place]) OUTPATIENT [id number] BRAULIO ZAPATA 08/07 Released w/o Limitations [place] [place] [facility] OUTPATIENT [id number] Notes Entered by: JOSEE BRAGA 13 Aug 2012 1007 ------- ------- ------- ------- -- HPV Vaccine JAMAL ALMONTE 08/13 Released w/o Limitations [place]) OUTPATIENT [id number] KWAME ZARATE 08/18 Released w/o Limitations [place]) [place] [facility] OUTPATIENT [id number] follow up MAINE GRANT 08/19 Released w/o Limitations [place] [place] ([facility]thoped [facility]) OUTPATIENT [id number] LALY RODRIGUEZ 08/28 Released with Work/Duty Limitations [place]) [place] [facility]) OUTPATIENT [id number] mri results LALY RODRIGUEZ 10/02 Released w/o Limitations [place]) [place] [facility] ([facility])) TELE CONSULT [id number] GRZEGORZ LEE 10/17 [place]([facility] ([facility])) [place] (Occupati onal Health Clinic) OUTPATIENT [id number] sharifa nichols/mwr/ HILDA Carlton 02/11 Released w/o Limitations [place] l [facility]) [place] [facility]al [facility]) OUTPATIENT [id number] sharifa nichols preempl oyment/ ready for m.TSERING White 02/17 Released w/o Limitations [place]) [place] [facility] ([facility])) OUTPATIENT [id number] MAINE HARDWICK 04/10 Released w/o Limitations [place] ([facility])) [place] ([facility]) OUTPATIENT [id number] annual eye exam AKIL CRUZ 04/17 Released w/o Limitations [place]([facility]) [place] [facility]) OUTPATIENT [id number] discuss LASEK surgery AKIL CRUZ 04/24 Released w/o Limitations [place]) [place] (Immuniza tion ([facility])) OUTPATIENT [id number] Notes Entered by: SERINA NAPIER 03 Jun 2013 1736 ------- ------- ------- ------- -- Influen za Vaccine JAMAL ALMONTE 06/03 Released w/o Limitations [place](Immu nizatio n ([facility])) [place] [facility] OUTPATIENT [id number] Notes Entered by: ZENAIDA ALMONTE 20 Jul 2013 1551 ------- ------- ------- ------- -- OC Medical Screeni ng Form JAMAL ALMONTE 07/20 Released w/o Limitations [place] [place] [facility] OUTPATIENT [id number] Notes Entered by: JOSEE BRAGA 28 Aug 2013 1331 ------- ------- ------- ------- -- derm on left hand JOVI ANDRADE 08/28 Released w/o Limitations [place] [place] [facility] OUTPATIENT [id number] follow up JOVI ANDRADE 09/10 Released w/o Limitations [place] [place] [facility] OUTPATIENT [id number] f/u MAINE GRANT A 09/18 Released w/o Limitations [place] [place] [facility] OUTPATIENT [id number] follow up MAINE GRANT A 10/19 Released w/o Limitations [place] [place] [facility] OUTPATIENT [id number] Follow up STACIA SHEN 10/26 Released w/o Limitations [place] [place] [facility] OUTPATIENT [id number] [facility] and medical [facility] ce for PCS MAINE GRANT A 01/22 Released w/o Limitations [place] ([facility])) [employer](Alc ABG In and Out Processin g) TELE CONSULT [id number] Notes Entered by: Arturo VELIZ 14 Jun 2014 1442 ------- ------- ------- ------- -- In Process ing PATO VELIZ 06/14 [employer](A lc ABG In and Out Process ing) [employer]([facility] Team A) OUTPATIENT [id number] Back Pain JANAK WOODSON 10/12 Released w/o Limitations [employer](A [facility] Team A) [employer]([facility]) OUTPATIENT [id number] REE glasses JANAK MOTT 10/27 Released w/o Limitations [employer]([facility]) [employer]([facility] Team A) TELE CONSULT [id number] Notes Entered by: VANCE RICHARDS 18 Jan 2015 1032 ------- ------- ------- ------- -- MINH Quinn 01/18 [employer](A [facility] Team A) [employer]([facility] Team A) OUTPATIENT [id number] TONIO Miranda 01/28 Released w/o Limitations [employer](A [facility] Team A) [employer]([facility] Team A) OUTPATIENT [id number] [facility]ica JANAK Gonzales 02/03 Released w/o Limitations [employer](A [facility] Team A) [employer]([facility]Z [facility] HC_Team A) OUTPATIENT [id number] headach e and dizzine ss GRAHAM YING 08/31 Released w/o Limitations [employer](Z ZZNcirl ik_COUNTS INCLUDE 234 BEDS AT THE [facility]_ Team A) [employer]([facility] HC_Team A) OUTPATIENT [id number] f/u concuss ion GRAHMA YING 09/05 Released w/o Limitations [employer](Z ZZNcirl ik_COUNTS INCLUDE 234 BEDS AT THE [facility]_ Team A) [employer]([facility] [employer]_F _Team A) OUTPATIENT [id number] F/u concuss jim GRAHAM YING 09/07 Released w/o Limitations [employer](Z ZZNcirl ik_COUNTS INCLUDE 234 BEDS AT THE [facility]_ Team A) [employer]([facility]) OUTPATIENT [id number] Notes Entered by: ERIKA SLAUGHTER S 04 Oct 2015 1542 ------- ------- ------- ------- -- Post Deploym ent In-proc ANGUS Kramer 10/04 Released w/o Limitations [employer](A [facility]) [employer]([facility] Team A) OUTPATIENT [id number] Notes Entered by: BIA LAW 27 Jan 2016 0857 ------- ------- ------- ------- -- Sore throat SHANTHI DIOP 01/26 Released w/o Limitations [employer](A [facility] Team A) [employer]([facility] Team A) OUTPATIENT [id number] Knee pain FATUMA CAICEDO 01/26 Released w/o Limitations [employer](A [facility] Team A) [employer]([facility] Team A) OUTPATIENT [id number] back pain HILARY WEAVER 01/30 Released with Work/Duty Limitations [employer](A [facility] Team A) [employer]([facility] Team A) TELE CONSULT [id number] Notes Entered by: Isamar HENRY 10 Feb 2016 1610 ------- ------- ------- ------- -- MINH Martinez 02/09 [employer](A [facility] Team A) [employer]([facility] Team A) OUTPATIENT [id number] OMT-FATUMA Steele 02/12 Released w/o Limitations [employer](A [facility] Team A) [employer]([facility] Team A) OUTPATIENT [id number] Sleep medicat ion concern FATUMA CAICEDO Tobin 02/21 Released w/o Limitations [employer](A [facility] Team A) [employer]([facility] Team A) OUTPATIENT [id number] BFA MARIFERFATUMA Tobin 02/27 Released w/o Limitations [employer](A [facility] Team A) [employer]([facility] Team A) OUTPATIENT [id number] Sleep concern f/u FATUMA CAICEDO Tobin 03/02 Released w/o Limitations [employer](A [facility] Team A) [employer]([facility]) OUTPATIENT [id number] eye exam with glasses ANDRES AZAR 03/07 Released w/o Limitations [employer]([facility]) [employer]([facility] Team A) TELE CONSULT [id number] Notes Entered by: Lore ALVARADO 14 Mar 2016 0838 ------- ------- ------- ------- -- MARCELLA Szymanski 03/14 [employer](A [facility] Team A) [employer]([facility] Team A) OUTPATIENT [id number] f/u zoloft medicat ion MARIFERFATUMA Tobin 03/20 Released w/o Limitations [employer](A [facility] Team A) [employer]([facility] Team A) TELE CONSULT [id number] Notes Entered by: Brooke ALONZO 29 Mar 2016 1146 ------- ------- ------- ------- -- NETWORK RESULT - PHYSIO MARIFER FATUMA C 03/29 [employer](A [facility] Team A) [employer]([facility]) OUTPATIENT [id number] CRS Workup PRAMOD BOX 03/30 Released w/o Limitations [employer] [facility]) [employer]([facility] Team A) OUTPATIENT [id number] Zoloft f/u MARIFERCOREYBrooke Rudd 04/02 Released w/o Limitations [employer](A [facility] Team A) [facility] Team A) TELE CONSULT [id number] Notes Entered by: JESUS CAICEDO 06 Apr 2016 1015 ------- ------- ------- ------- -- Vitamin D FATUMA CAICEDO 04/06 [employer](A [facility] Team A) [facility] Team A) OUTPATIENT [id number] Zoloft f/u MARIFERJESUSFATUMA C 04/10 Released w/o Limitations [employer](A [facility] Team A) [facility]) TELE CONSULT [id number] Notes Entered by: Tobin ZIMMERMAN 12 Apr 2016 0740 ------- ------- ------- ------- -- Referra l to [place] ([facility]) ANDRES AZAR 04/12 [facility] Optomet ry [facility]) [facility] Ophthalmo logy) OUTPATIENT [id number] PT contact ed about kun berkowitz receipt , packet sent EDDIE HERZOG 04/17 Released w/o Limitations [facility] Ophthal mology) [facility] Team A) TELE CONSULT [id number] Notes Entered by: Brooke ALONZO 02 May 2016 1043 ------- ------- ------- ------- -- Referra l HALEIGH Evans 05/02 [employer](A [facility] Team A) [facility] Team A) TELE CONSULT [id number] Notes Entered by: FERNANDO GANN 04 May 2016 1044 ------- ------- ------- ------- -- Network Result- Physio [id number] FATUMA CAICEDO 05/04 [employer](A [facility] Team A) [employer]([facility] Team A) TELE CONSULT [id number] Notes Entered by: FERNANDO GANN 24 May 2016 1430 ------- ------- ------- ------- -- Network Result- Physica l Therapy [id number] KEYANA GASTELUM 05/24 [employer](A [facility] Team A) [employer]([facility] Team A) TELE CONSULT [id number] Notes Entered by: Brooke ALONZO 10 Jul 2016 1637 ------- ------- ------- ------- -- HALEIGH Lorenzo 07/10 [facility](A [facility] Team A) [facility] Team A) OUTPATIENT [id number] f/u back pain FATUMA CAICEDO 07/11 Released w/o Limitations [employer](A [facility] Team A) [facility] Team A) TELE CONSULT [id number] Notes Entered by: JESUS CAICEDO 15 Aug 2016 1653 ------- ------- ------- ------- -- Normal vitamin D SERAFIN REEDER 08/15 [facility](A [facility] Team A) [facility]) OUTPATIENT [id number] Initial Consult -INDER Healy 08/21 Released w/o Limitations [facility]) [facility]) OUTPATIENT [id number] INDER Ríos 08/22 Released w/o Limitations [facility]) [facility]) OUTPATIENT [id number] Consent INDER VARGAS 08/23 Released with Work/Duty Limitations [facility]) [facility] Op[facility]) OUTPATIENT [id number] 1 week PO INDER VARGAS 08/28 [facility] w/o Limitations [facility] [employer]([facility]) OUTPATIENT [id number] 1 Month PRK Post-Op /Non- Fly AZARANDRES W 09/25 Released w/o Limitations [employer]([facility]) [employer]([facility]) OUTPATIENT [id number] 2 Month PRK Post-Op / Non-Fly ANDRES AZAR W 11/15 Released w/o Limitations [employer] [facility]) [employer]([facility] Team A) OUTPATIENT [id number] Notes Entered by: FERNANDO GANN 16 Nov 2016 1433 ------- ------- ------- ------- -- strep test HALEIGH CENTENO 11/16 Released w/o Limitations [employer](A [facility] Team A) [employer]([facility] Team A) OUTPATIENT [id number] Right Wrist pain FATUMA CAICEDO 12/10 Released with Work/Duty Limitations [employer](A [facility] Team A) [employer]([facility] Team A) OUTPATIENT [id number] [employer] Physica l/PHAQ FATUMA CAICEDO C 01/23 Released w/o Limitations [employer](A [facility] Team A) [employer]([facility] Team A) OUTPATIENT [id number] Pain in ribs FATUMA CAICEDO 01/29 Released w/o Limitations [employer](A [facility] Team A) [employer]([facility]) OUTPATIENT [id number] PRK 6-month f/u ANDRES AZAR W 03/07 Released w/o Limitations [employer]([facility] Team M) OUTPATIENT [id number] Notes Entered by: GÓMEZ HOLLIDAY 20 Jun 2017 0811 ------- ------- ------- ------- -- Walk In--Str ep Test KAMILAH HERNANDES 06/20 Released w/o Limitations [facility] Team M) [facility] Team M[facility] OUTPATIENT [id number] shermanyarely JUAN Clark 07/03 Released w/o Limitations [facility] Team M[facility] Team M) OUTPATIENT [id number] danny berkowitz for november LIZ HAQ 10/08 Released w/o Limitations [facility] Team M) [facility] Team M) OUTPATIENT [id number] check up LIZ HAQ 01/07 Released w/o Limitations [facility] Team M) [facility] Team M) TELE CONSULT [id number] Notes Entered by: LIZ HAQ 14 Jan 2018 1354 ------- ------- ------- ------- -- ANITA Ashley 01/14 [facility] Team M) [facility] Team M) OUTPATIENT [id number] Notes Entered by: SRINI GOMES 05 Feb 2018 0848 ------- ------- ------- ------- -- walk in - [facility] LIZ HAQ 02/05 Released w/o Limitations [facility] Team M) [facility] Team M) OUTPATIENT [id number] Notes Entered by: ARGENIS LANDA 12 Feb 2018 0939 ------- ------- ------- ------- -- Annual PHA LIZ HAQ 02/12 Released w/o Limitations [facility] Team M) [facility] Team M) OUTPATIENT [id number] knee/fo ot pain JUAN LEUNG 03/24 Released w/o Limitations [facility] Team M) [facility] Team M) TELE CONSULT [id number] DEVAUGHN MICHELLELuca Cox 03/26 [facility] Team M[facility]) OUTPATIENT [id number] bad itching feet YELENA STILL Mariia 04/03 Released w/o Limitations [facility]) [facility] Team M) OUTPATIENT [id number] [facility] HAQLIZ TAPIA 04/14 Released w/o Limitations [facility] Team M) [facility] Team M) TELE CONSULT [id number] Notes Entered by: Brooke PINEDA 30 Apr 2018 0835 ------- ------- ------- ------- -- Request from ANITA Morales 04/30 [facility] Team M) [facility] Team M) OUTPATIENT [id number] Notes Entered by: MASOUD ADRIAN 12 May 2018 0939 ------- ------- ------- ------- -- Walk in Left wrist injury CHALINO LYONS 05/12 Released w/o Limitations [facility] Team M) [facility] Team M) OUTPATIENT [id number] L thumb injury JUAN LEUNG 05/15 Released w/o Limitations [facility] Team M) [facility] Team M) TELE CONSULT [id number] Notes Entered by: MICHELLE VELASCO 19 May 2018 1413 ------- ------- ------- ------- -- LUCA Guerrero 05/19 [facility] Team M) [facility] Team M) OUTPATIENT [id number] AUoF Left MARY Owusu 06/17 Released w/o Limitations [facility] Team M) [facility] Team M) TELE CONSULT [id number] Notes Entered by: MIGUEL ÁNGEL PABLO 23 Jun 2018 1339 ------- ------- ------- ------- -- NETWORK RESULTS - Orthope dics 018 YOUNG ANDRADE 06/23 [facility] Team M) [facility] Team M) OUTPATIENT [id number] Notes Entered by: MASOUD ADRIAN 24 Jun 2018 1304 ------- ------- ------- ------- -- AUoF Walk in MINH Streeter 06/24 Released w/o Limitations [facility] Team M) [facility] Team M) TELE CONSULT [id number] Notes Entered by: MIGUEL ÁNGEL PABLO 30 Jul 2018 1034 ------- ------- ------- ------- -- NETWORK RESULTS - Urology 018 YOUNG ANDRADE 07/30 [facility] Team M) [facility] Team M) TELE CONSULT [id number] Notes Entered by: MASOUD ADRIAN 06 Aug 2018 1614 ------- ------- ------- ------- -- Lab results SIMONESIGRID Hunter 08/06 [facility] Team M) [facility] Team M) TELE CONSULT [id number] Notes Entered by: MIGUEL ÁNGEL PABLO 07 Aug 2018 1414 ------- ------- ------- ------- -- NETWORK RESULTS - Physica l Therapy LIZ RIVAS 08/07 [facility] Team M) [facility] Team M) OUTPATIENT [id number] rib pain LIZ HAQ 08/19 [facility]ased w/o Limitations [facility] Team M) [facility] Team M) TELE CONSULT [id number] Notes Entered by: MICHELLE VELASCO 19 Aug 2018 1558 ------- ------- ------- ------- -- LUCA Guerrero 08/19 [facility] Team M) [facility] Team M) OUTPATIENT [id number] julieth cosby AUBREY G 09/18 [facility]ased w/o Limitations [facility] Team M) [facility] Team M) TELE CONSULT [id number] Notes Entered by: MIGUEL ÁNGEL PABLO 29 Sep 2018 0942 ------- ------- ------- ------- -- NETWORK RESULTS - Physica l Therapy LIZ RIVAS 09/29 [facility] Team M) [facility] Team M) TELE CONSULT [id number] Notes Entered by: MIGUEL ÁNGEL PABLO 19 Nov 2018 1248 ------- ------- ------- ------- -- NETWORK RESULTS - Physica l Therapy 018 JUAN LEUNG T 11/19 [facility] Team M) [facility] Team M) TELE CONSULT [id number] Notes Entered by: MIGUEL ÁNGEL PABLO 19 Nov 2018 1250 ------- ------- ------- ------- -- NETWORK RESULTS - Physica l Therapy 018 JUAN LEUNG T 11/19 [facility] Team M) [facility] Team M) OUTPATIENT [id number] Head aches JUAN LEUNG 12/11 Released w/o Limitations [facility] Team M) [facility] Team M) OUTPATIENT [id number] left pinky finger pain SAWYER HAQRICARDO Lorenz 01/20 Released w/o Limitations [facility] Team M) [facility] Team M) TELE CONSULT [id number] Notes Entered by: Edith NIX 26 Jan 2019 0911 ------- ------- ------- ------- -- AMNA Ferrera 01/26 [facility] Team M) [facility] Team M) OUTPATIENT [id number] multipl e muscle issues LIZ HAQ 01/26 Released w/o Limitations [facility] Team M) [facility] Team M) OUTPATIENT [id number] Notes Entered by: SINA STACY 30 Jan 2019 1020 ------- ------- ------- ------- -- ANNUAL PHA LIZ HAQ 01/30 Released w/o Limitations [facility] Team M) [facility] Team M) TELE CONSULT [id number] Notes Entered by: LIZ HAQ 17 Feb 2019 0917 ------- ------- ------- ------- -- MRI LUCA Cotton 02/17 [facility] Team M) [facility] Team M) OUTPATIENT [id number] virtual appt clearif shayy oliveros regardi ng past appts LIZ HAQ 02/18 Released with Work/Duty Limitations [facility] Team M) [facility] Team M) OUTPATIENT [id number] virtual apt per PCM LIZ HAQ 02/26 Released with Work/Duty Limitations [facility] Team M) [facility] Team M) TELE CONSULT [id number] Notes Entered by: Isamar MCKEE 27 Feb 2019 1027 ------- ------- ------- ------- -- Med concern s, AMNA Rose 02/27 [facility] Team M) [facility] Team M) OUTPATIENT [id number] f/u virtual apt LIZ HAQ 03/09 Released with Work/Duty Limitations [facility] Team M) [facility] OUTPATIENT [id number] shoulde r pain LEDALARRYYOUNG 03/16 Released w/o Limitations [facility]) [facility] OUTPATIENT [id number] Chest pain, unspeci fied/GE ILENSHADIA PATINO 03/18 Released w/o Limitations [facility]) [facility] Team M) TELE CONSULT [id number] Notes Entered by: MIGUEL ÁNGEL PABLO 23 Mar 2019 0958 ------- ------- ------- ------- -- NETWORK RESULTS - ENT LIZ YATES 03/23 [facility]) [facility] Team M) TELE CONSULT [id number] Notes Entered by: MIGUEL ÁNGEL PABLO 23 Mar 2019 1140 ------- ------- ------- ------- -- NETWORK RESULTS - Radiolo gy LIZ YATES 03/23 [facility] Team [facility]) [facility] Team M) OUTPATIENT [id number] virtual f/u LIZ HAQ 03/24 Released w/o Limitations [facility] Team M) [facility] Team M) OUTPATIENT [id number] virtual appt f/u LIZ HAQ 03/31 Released w/o Limitations [facility] Team M) [facility]) OUTPATIENT [id number] f/u TeleHea lth/Gei lenkisoledad DELGADO, SHADIA ISIDRO 04/21 Released w/o Limitations [facility] Team M) OUTPATIENT [id number] Notes Entered by: ELROY VIVAS Luca 22 Apr 2019 1443 ------- ------- ------- ------- -- [facility] Appoint ment with [facility]: Pain clinic AMNA WEST Luca 04/22 Released w/o Limitations [facility] Team M) [facility] OUTPATIENT [id number] left shoulde r 2nd opinion has off base surg MAY 19 YELENA MCFADDEN 05/06 Released w/o Limitations [facility]) [facility] Team M) TELE CONSULT [id number] Notes Entered by: MIGUEL ÁNGEL PABLO 08 May 2019 1054 ------- ------- ------- ------- -- MTF RESULTS - [facility] 019, 019 LIZ HAQ 05/08 [facility] Team M) [facility] Team M) OUTPATIENT [id number] chest pain LIZ HAQ 05/11 Released w/o Limitations [facility] Team M) [facility] Team M) TELE CONSULT [id number] 6 Notes Entered by: MICHELLE VELASCO 12 May 2019 1019 ------- ------- ------- ------- -- LUCA Guerrero 05/12 [facility] Team M) [facility] Team M) TELE CONSULT [id number] Notes Entered by: MIGUEL ÁNGEL PABLO 19 May 2019 1210 ------- ------- ------- ------- -- NETWORK RESULTS - Orthope dics 019 LIZ HAQ 05/19 [facility] Team M) [facility] Team M) OUTPATIENT [id number] surgery follow up JUAN LEUNG 05/20 Released w/o Limitations [facility] Team M) [facility] Team M) OUTPATIENT [id number] Notes Entered by: VICKI LOZANO 01 Jun 2019 1049 ------- ------- ------- ------- -- suture removal ELAINE LORA 06/01 Released w/o Limitations [facility] Team M) [facility] Team M) TELE CONSULT [id number] Notes Entered by: MIGUEL ÁNGEL PABLO 05 Jun 2019 1109 ------- ------- ------- ------- -- NETWORK RESULTS - Orthope dics 019 LIZ HAQ 06/05 [facility] Team M) [facility] Team M) OUTPATIENT [id number] f/u chest pain LIZ HAQ 06/08 Released w/o Limitations [facility] Team M) [facility] Team M) OUTPATIENT [id number] Notes Entered by: JERMAIN GREENBERG 16 Jun 2019 0842 ------- ------- ------- ------- -- walk in JUAN Chester 06/16 Released w/o Limitations [facility] Team M) [facility] Team M[facility] OUTPATIENT [id number] stomach problem s OMA LYONSLINE E 07/16 Released w/o Limitations [facility] Team M) [facility] Team M) TELE CONSULT [id number] Notes Entered by: MIGUEL ÁNGEL PABLO 26 Aug 2019 1253 ------- ------- ------- ------- -- NETWORK RESULTS - Physica l Therapy 019 JUAN LEUNG 08/26 [facility] Team M) [facility] Team M) OUTPATIENT [id number] right foot pain, left shoulde r pain (contin ue PT) LIZ HAQ 09/29 Released w/o Limitations [facility] Team M) [facility] Team M) OUTPATIENT [id number] rip pain LIZ HAQ 10/27 Released w/o Limitations [facility] Team M) [facility] Team M) OUTPATIENT [id number] Notes Entered by: KASIA HAUSER E 18 Nov 2019 0836 ------- ------- ------- ------- -- walk in-stre p KAMILAH HERNANDES 11/18 Released w/o Limitations [facility] Team M) [facility] Team M) OUTPATIENT [id number] rib pain LIZ HAQ 11/24 Released w/o Limitations [facility] Team M) [facility] Team M) OUTPATIENT [id number] virtual f/u [id number] LIZ HAQ 11/26 Released w/o Limitations [facility] Team M) [facility] Team M) TELE CONSULT [id number] Notes Entered by: MIGUEL ÁNGEL PABLO 11 Dec 2019 0945 ------- ------- ------- ------- -- NETWORK RESULTS - Radiolo gy 020 LIZ HAQ 12/10 [facility] Team M) [facility] Mental [facility]) TELE CONSULT [id number] Notes Entered by: Brooke PINON 11 Jan 2020 0914 ------- ------- ------- ------- -- KEIRA Sepncer 01/10 [facility]) [facility]) OUTPATIENT [id number] Notes Entered by: KEIRA BENITES 12 Jan 2020 1555 ------- ------- ------- ------- -- LEROYA KEIRA BENITES 01/11 Released w/o Limitations [facility]) [facility] Team M) TELE CONSULT [id number] Notes Entered by: MIGUEL ÁNGEL PABLO 18 Jan 2020 1230 ------- ------- ------- ------- -- NETWORK RESULTS - Physico l Therapy 020 LIZ HAQ 01/17 [facility] Team M) [facility] Team M) OUTPATIENT [id number] f/u pain mangeme nt LIZ HAQ 02/17 Released with Work/Duty Limitations [facility] Team M) [facility] Team M) OUTPATIENT [id number] virtual med f/u [id number] YOUNG ANDRADE 02/22 Released w/o Limitations [facility] Team M) [facility] Team M) OUTPATIENT [id number] Notes Entered by: SINA STACY 07 Mar 2020 0855 ------- ------- ------- ------- -- ANNUAL PHA YOUNG ANDRADE 03/07 Released w/o Limitations [facility] Team M) [facility]) TELE CONSULT [id number] Notes Entered by: LALY RAMEY 09 Mar 2020 1601 ------- ------- ------- ------- -- Medical YOUNG Edwards 03/09 [facility]) [facility] Team M) TELE CONSULT [id number] Notes Entered by: VICKI LOZANO 15 Apr 2020 0835 ------- ------- ------- ------- -- Allergy concern s/no appoint AMNA Villavicencio 04/15 [facility] Team M) [facility] Team M) TELE CONSULT [id number] Notes Entered by: MIGUEL ÁNGEL PABLO 25 Apr 2020 1022 ------- ------- ------- ------- -- NETWORK RESULTS - Anesthe siology 019 JUAN LEUNG 04/25 [facility] Team M) [facility] Team M) OUTPATIENT [id number] right wrist pain, poss xrays AARON PUGA 05/23 Released w/o Limitations [facility] Team M) [facility] Team M) TELE CONSULT [id number] Notes Entered by: MIGUEL ÁNGEL PABLO 10 Jun 2020 0915 ------- ------- ------- ------- -- NETWORK RESULTS - Physica l Therapy 020 [facility] 06/10 [facility] Team M) [facility]) TELE CONSULT [id number] Notes Entered by: LALY RAMEY 01 Jul 2020 1037 ------- ------- ------- ------- -- Medical YOUNG Edwards 07/01 [facility]) [facility] Team M) TELE CONSULT [id number] Notes Entered by: MIGUEL ÁNGEL PABLO 29 Jul 2020 1019 ------- ------- ------- ------- -- NETWORK RESULTS - Physica l Therapy 020 [facility] 07/29 [facility] Team M) [facility] Team M) TELE CONSULT [id number] Notes Entered by: VIK GALLO 22 Feb 2021 0828 ------- ------- ------- ------- -- Rx JOHNNIE Christianson 02/22 [facility] Team M) [facility] Team M) TELE CONSULT [id number] Notes Entered by: Brooke PINON 01 Mar 2021 0930 ------- ------- ------- ------- -- JOHNNIE Luo 03/01 [facility] Team M) [facility] Social Work) OUTPATIENT [id number] [facility] KEIRA Saldivar 03/02 Released w/o Limitations [facility] Social Work) [facility] Team M) OUTPATIENT [id number] Notes Entered by: YADIRA YUEN 02 Mar 2021 1420 ------- ------- ------- ------- -- ANNUAL PHA. AARON PUGA 03/02 Released w/o Limitations [facility] Team M) [facility] Team M) OUTPATIENT [id number] shaving waiver renewal , already AARON PUGA 03/15 Released w/o Limitations [facility] Team M) [facility] Team M) OUTPATIENT [id number] rib pain AARON PUGA 03/27 Released w/o Limitations [facility] Team M) [facility] Team M) TELE CONSULT [id number] Notes Entered by: JERMAIN GREENBERG 14 Apr 2021 0824 ------- ------- ------- ------- -- triage - no acute appts availab JOHNNIE Caceres 04/14 [facility] Team M) [facility] Team M) OUTPATIENT [id number] jaw pain AARON PUGA 04/14 Released w/o Limitations [facility] Team M) [facility]Aud iology Procedure s) OUTPATIENT [id number] Notes Entered by: ALDEN PATEL 29 Nov 2021 0829 ------- ------- ------- ------- -- ALDEN EDWARDS 11/29 Released w/o Limitations [facility] ([facility]A udiolog y Procedu res) [address] [place] [address] [facility])(War rior Op Med Cln Tm A Ad) TELE CONSULT [id number] Notes Entered by: ELIJAH HIRSCH 29 Jan 2022 1448 ------- ------- ------- ------- -- Sx: Swollen , hard bump on right hand - Darrin - - tsg* LEE DALAL 01/29 Referred for Appointment [address] [place] [address] [facility])(W arrior Op Med Cln Tm A Ad) [address] [place] [address])(War rior Op Med Cln Tm A Ad) TELE CONSULT [id number] Notes Entered by: NAEEM NOLASCO 05 Feb 2022 0920 ------- ------- ------- ------- -- Ortho F/U- [facility] F/U-SX- Painful Ganglio n Cyst R Cyst Wrist/ Darrin / LEE DALAL 02/05 Immediate Referral [address] [place] [address])(W arrior Op Med Cln Tm A Ad) [address] [place] [address])(War rior Op Med Cln Tm A Ad) TELE CONSULT [id number] Notes Entered by: KWAME SMITH 25 Apr 2022 1416 ------- ------- ------- ------- -- Network results [facility] 022 WILBER GALEANO 04/[address] [place] [address])(W arrior Op Med Cln Tm A Ad) [address] [place] [address])(Bas e Operation al Medicine Clin) OUTPATIENT [id number] Notes Entered by: Arturo GIORDANO 18 Jun 2022 0906 ------- ------- ------- ------- -- Re-LENIN Galvez 06/18 Released w/o Limitations [address] [place] [address] Group [facility])(B ase Operati onal Medicin e Clin) [address] [place] [address])(Sco tt Flight Medicine Tm) OUTPATIENT [id number] Retrain Zafar ce - DQ JAY LIND 06/18 Released w/o Limitations [address] [place] [address])(S cott Flight Medicin e Tm) [address] [place] [address])(War rior Op Med Cln Tm A Ad) OUTPATIENT [id number] BODY SHAKES AND REFERRA LS STACY ORO 07/11 Released w/o Limitations [address] [place] [address] Group [facility])(W arrior Op [facility] Cln Tm A Ad) [address] [place] [address])(War ri[facility] Tm A Ad) OUTPATIENT [id number] F2F//L Foot pain//6 [id number]. [phone] PRANAV NATARAJAN 07/19 Released w/o Limitations [address] [place] [address])([facility] ar[facility] Tm A Ad) [address] [place] [address])([facility] Tm A Ad) TELE CONSULT [id number] Notes Entered by: STACY ORO 19 Jul 2022 1445 ------- ------- ------- ------- -- Results STACY ORO 07/19 Released to [facility] [address] [place] [address] [facility])(W arrior [facility] Med Cln Tm A Ad) [address] [place] [address])(War rior Op Med Cln Tm A Ad) TELE CONSULT [id number] Notes Entered by: STACY ORO 12 Aug 20222036 ------- ------- ------- ------- -- Lab follow up/endo crinolo gy referra l STACY ORO 08/13 Referred for Appointment [address] [place] [address])(W arrior Op Med Cln Tm A Ad) [address] [place] [address] [facility])(War ri[facility] Op Med Cln Tm A Ad) TELE CONSULT [id number] Notes Entered by: Ne JALLOH 09 Oct 2022 1054 ------- ------- ------- ------- -- Waiting Provide r Call Back/Si mmons/6 [id number]. [id number] CASEY HERNANDEZ 10/09 Referred for Appointment [address] [place] [address])([facility] ar[facility] Tm A Ad) [address] [place] [address])(War rior Op Med Cln Tm A Ad) TELE CONSULT [id number] 7 Notes Entered by: RASHIDA MAGALLON 10 Oct 2022 1027 ------- ------- ------- ------- -- Exposur e//Simm ons RASHIDA MAGALLON 10/10 Other Not Elsewhere Classified [address] [place] [address])(W arrior Op Med Cln Tm A Ad) [address] [place] [address])(Sco tt [facility] [place]) TELE CONSULT [id number] 2 Notes Entered by: Lore BURKETT 10 Oct 2022 1339 ------- ------- ------- ------- -- Network results Endocri nology 023 STACY TEJEDA 10/10 Released to Self Care [address] [place] [address])(S cott [facility]m [place]) [address] [place] [address])(War rior Op Med Cln Tm A Ad) TELE CONSULT [id number] 5 Notes Entered by: Ne JALLOH 11 Oct 2022 1227 ------- ------- ------- ------- -- Referra l Endocri nology Appt Sep/Yohannes lyman/Porter 0.853.2 338 CASEY HERNANDEZ 10/11 Referred for Appointment [address] [place] [address])(W arrior Op Med Cln Tm A Ad) [address] [place] [address])( rior Op Med Cln Tm A Ad) TELE CONSULT [id number] 5 Notes Entered by: NAEEM NOLASCO 12 Oct 2022 1307 ------- ------- ------- ------- -- SX- R Eye Bump near [place] / Thomson / CASEY HERNANDEZ 10/12 Referred for Appointment [address] [place] [address])(W arrior Op Med Cln Tm A Ad) [address] [place] [address])(r Op Med Cln Tm A Ad) OUTPATIENT [id number] FTF BUMP ON EYE, CHEM EXPOSUR E WILBER JIMENEZ 10/18 Released w/o Limitations [address] [place] [address])(W arrior Op Med Cln Tm A Ad) [address] [place] [address])(Uti lization Managemen t) TELE CONSULT [id number] 7 Notes Entered by: IZAIAH WANG 18 Oct 2022 1608 ------- ------- ------- ------- -- STAT Referra l non-net work-En do IZAIAH WANG 10/18 Other Not Elsewhere Classified [address] [place] [address])(U tilizat ion Managem ent) [address] [place] [address])(r Op Med Cln Tm A Ad) TELE CONSULT [id number] 6 Notes Entered by: MARIO MARK 25 Oct 2022 1026 ------- ------- ------- ------- -- STAT Referra l Request Oct/Sim mons/ [phone] (Theres a) CASEY HERNANDEZ 10/25 Other Not Elsewhere Classified [address] [place] [address])(W arrior Op Med Cln Tm A Ad) [address] [place] [address])(Bas e Operation al Medicine Clin) OUTPATIENT [id number] [facility] . LENIN GIORDANO 11/01 Released w/o Limitations [address] [place] [address])(B ase Operati onal Medicin e Clin) [address] [place] [address])(War rior Op Med Cln Tm A Ad) TELE CONSULT [id number] 2 Notes Entered by: NIURKA HERNANDEZ 02 Nov 2022 0930 ------- ------- ------- ------- -- Con leave form NIURKA HERNANDEZ 11/02 Other Not Elsewhere Classified [address] [place] [address])(W arrior Op Med Cln Tm A Ad) [address] [place] [address])([facility] Health Assessmen ts) OUTPATIENT [id number] 8 DRHA1/Q FEBRUARY 12/135 ALFREDA DELGADO 11/05 Released w/o Limitations [address] [place] [address])([facility] [address] [place] [address])(War rior Op Med Cln Tm A Ad) TELE CONSULT [id number] 5 Notes Entered by: REGINA REEVES 08 Nov 2022 1514 ------- ------- ------- ------- -- Network results Endocri nology 10/31-11/01 SHANTHI YATES 11/[address] [place] [address])(W arrior Op Med Cln Tm A Ad) [address] [place] [address])(War rior Op Med Cln Tm A Ad) TELE CONSULT [id number] 3 Notes Entered by: RHIANNA CURRIE 13 Nov 2022 1313 ------- ------- ------- ------- -- Network review PATO THOMSON 11/13 [facility])(W arrior Op Med Cln Tm A Ad) [address] [place] [address] Group [facility])(War rior Op Med Cln Tm A Ad) TELE CONSULT [id number] 7 Notes Entered by: NAEEM NOLASCO 13 Nov 2022 1522 ------- ------- ------- ------- -- Con-Tea Snell on - Med Dosage Change Notes Inquiry / Berto / LEE DALAL 11/13 Released to Self Care [address] [place] [address] [facility])(W arrior Op Med Cln Tm A Ad) [address] [place] [address])(Aud iology Procedure s) OUTPATIENT [id number] 1 Notes Entered by: Calixto SANTOS 14 Nov 2022 0853 ------- ------- ------- ------- -- ANNUAL HCP SFS ARIN SANTOS 11/14 Released w/o Limitations [address] [place] [address] [facility])(A udiolog y Procedu res) [address] [place] [address])(War rior Op Med Cln Tm A Ad) TELE CONSULT [id number] 7 Notes Entered by: Ne JALLOH 04 Dec 2022 1525 ------- ------- ------- ------- -- Waiver Request /[facility]/63 0.853.2 338 RASHIDA MAGALLON 12/04 Other Not Elsewhere Classified [address] [place] [address] [facility])(W arrior Op Med Cln Tm A Ad) [address] [place] [address])(War rior Op Med Cln Tm A Ad) TELE CONSULT [id number] 4 Notes Entered by: RHIANNA CURRIE 07 Dec 2022 1552 ------- ------- ------- ------- -- Network review PRANAV NATARAJAN 12/[address] [place] [address])(W arrior Op Med Cln Tm A Ad) [address] [place] [address])(War rior Op Med Cln Tm A Ad) TELE CONSULT [id number] 6 Notes Entered by: YONI LIM 10 Dec 2022 0926 ------- ------- ------- ------- -- Network results Endocri nology 023 and 023 WILBER COTTER 12/[address] [place] [address])(W arrior Op Med Cln Tm A Ad) [address] [place] [address])(War rior Op Med Cln Tm A Ad) TELE CONSULT [id number] 2 Notes Entered by: Ne JALLOH 20 Dec 2022 1426 ------- ------- ------- ------- -- Status of Waiver Appt Leaves December/ Nicolasa baker/630 .853.23 38 RASHIDA MAGALLON 12/20 Other Not Elsewhere Classified [address] [place] [address])(W arrior Op Med Cln Tm A Ad) [address] [place] [address])(War rior Op Med Cln Tm A Ad) TELE CONSULT [id number] 1 Notes Entered by: JACKSON VALDOVINOS 29 Jan 2023 1505 ------- ------- ------- ------- -- Lab results PRANAV NATARAJAN 01/[address] [place] [address])(W arrior Op Med Cln Tm A Ad) [address] [place] [address])(War rior Op Med Cln Tm A Ad) TELE CONSULT [id number] 1 Notes Entered by: MARIO MARK 31 Jan 2023 1233 ------- ------- ------- ------- -- 04 February Appt Inquiry /[place]/63 0.853.2 338 RASHIDA MAGALLON 01/31 Other Not Elsewhere Classified [facility] [employer] [facility]W arrior Op Med Cln Tm A Ad) [employer] [facility]War rior Op Med Cln Tm A Ad) TELE CONSULT [id number] 5 Notes Entered by: PATO THOMSON 05 Feb 2023 0814 ------- ------- ------- ------- -- Deploym ent PATO Mccurdy 02/[address] [place] [address] Group [facility]W arrior Op Med Cln Tm A Ad) Theater Facility OUTPATIENT [id number] Theater Provider 05/25 Released w/o Limitations Theater Facilit y Theater Facility OUTPATIENT [id number] Theater Provider 05/25 Released w/o Limitations Theater Facilit y [facility] [id number] 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, 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, 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 (PHA) ALFREDA LMORGAN 12/29 Discharge Disposition: Home or Self Care [facility]55[facility] [facility] [facility] [id number] 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, 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, 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 (PHA) ALFREDA LMORGAN 12/30 Discharge Disposition: Home or Self Care 0055[facility] [id number] Encount er for adminis trative huber peña, [facility] 01/20 Discharge Disposition: Home or Self Care 0055C[facility] [facility] Visit [id number] 01/20 Discharge Disposition: Home or Self Care 0055C[facility] Visit [id number] 01/21 Discharge Disposition: Home or Self Care 0055C-[address] [facility] Procedures Combined list of: 1) Procedures from Department of Veterans Affairs facilities going back up to thelast 18 months, not all VA non-surgical procedures are included; 2) All procedures from the Department of Defense facilities. Procedure Procedure Type Code Date Perfomer Comments Sourc e BLOOD PRESSURE MEASURED (CKD)(DM) 03/06 [facility] FITTING OF SPECTACLES, EXCEPT FOR APHAKIA; MONOFOCAL 06/05 [facility] SCREENING TEST OF VISUAL ACUITY, QUANTITATIVE, BILATERAL 05/17 DoD TELE ASSESS & MGT SRV PROV QUAL NONPHYS HLTH CARE PRO TO EST PAT,PARENT,GUARD NOT ORIG REL ASSESS & MGT SRV PROV W/IN PREV 7 DAYS NOR LEAD ASSESS & MGT SRV/PX W/IN NXT 24 HR/SOON APT;5-10 MIN MED DIS 04/20 DoD CULTURE, TYPING; OTHER METHODS 10/13 DoD NONINVASIVE EAR OR PULSE OXIMETRY FOR OXYGEN SATURATION; SINGLE DETERMINATION 10/31 DoD SPECIAL REPORTS SUCH INSURANCE FORMS, MORE THAN THE INFORMATION CONVEYED IN THE USUAL MEDICAL COMMUNICATIONS OR STANDARD REPORTING FORM 02/04 DoD PSYCHOTHERAPY, 45 MINUTES WITH PATIENT WHEN PERFORMED WITH AN EVALUATION AND MANAGEMENT SERVICE (LIST SEPARATELY IN ADDITION TO THE CODE FOR PRIMARY PROCEDURE) 03/08 DoD PSYCHOTHERAPY, 45 MINUTES WITH PATIENT WHEN PERFORMED WITH AN EVALUATION AND MANAGEMENT SERVICE (LIST SEPARATELY IN ADDITION TO THE CODE FOR PRIMARY PROCEDURE) 03/05 DoD PSYCHOTHERAPY, 45 MINUTES WITH PATIENT WHEN PERFORMED WITH AN EVALUATION AND MANAGEMENT SERVICE (LIST SEPARATELY IN ADDITION TO THE CODE FOR PRIMARY PROCEDURE) 02/26 DoD PSYCHOTHERAPY, 45 MINUTES WITH PATIENT WHEN PERFORMED WITH AN EVALUATION AND MANAGEMENT SERVICE (LIST SEPARATELY IN ADDITION TO THE CODE FOR PRIMARY PROCEDURE) 02/22 DoD PSYCHIATRIC DIAGNOSTIC EVALUATION WITH MEDICAL SERVICES 02/04 DoD HEALTH&BEHAV ASSESSMENT (EG, HEALTH-FOC CLINICAL INTERVIEW, BEHAVIORAL OBSERVATIONS, PSYCHOPHYSICOLOGICAL MONITOR, HEALTH-ORIENT QUESTIONNAIRES), EA 15 MIN [id number] W THE PATIENT; INIT ASSESSMENT 02/01 [facility] SCREENING TEST OF VISUAL ACUITY, QUANTITATIVE, BILATERAL 01/22 DoD DESTRUCTION (EG, LASER SURGERY, ELECTROSURGERY, CRYOSURGERY, CHEMOSURGERY, SURGICAL CURETTEMENT), OF BENIGN LESIONS OTHER THAN SKIN TAGS OR CUTANEOUS VASCULAR PROLIFERATIVE LESIONS; UP TO 14 LESIONS 10/19 DoD DESTRUCTION (EG, LASER SURGERY, ELECTROSURGERY, CRYOSURGERY, CHEMOSURGERY, SURGICAL CURETTEMENT), OF BENIGN LESIONS OTHER THAN SKIN TAGS OR CUTANEOUS VASCULAR PROLIFERATIVE LESIONS; UP TO 14 LESIONS 09/10 DoD DESTRUCTION (EG, LASER SURGERY, ELECTROSURGERY, CRYOSURGERY, CHEMOSURGERY, SURGICAL CURETTEMENT), OF BENIGN LESIONS OTHER THAN SKIN TAGS OR CUTANEOUS VASCULAR PROLIFERATIVE LESIONS; UP TO 14 LESIONS 08/28 DoD IMMUNIZATION ADMINISTRATION BY INTRANASAL OR ORAL ROUTE; 1 VACCINE (SINGLE OR COMBINATION VACCINE/TOXOID) 06/03 [facility] OPHTHALMOLOGICAL SERVICES: MEDICAL EXAMINATION AND EVALUATION, WITH INITIATION OR CONTINUATION OF DIAGNOSTIC AND TREATMENT PROGRAM; INTERMEDIATE, ESTABLISHED PATIENT 04/24 [facility] FITTING OF SPECTACLES, EXCEPT FOR APHAKIA; MONOFOCAL 04/17 DoD SCREENING TEST OF VISUAL ACUITY, QUANTITATIVE, BILATERAL 04/10 DoD SCREENING TEST, PURE TONE, AIR ONLY 02/11 [facility] PHYSICAL THERAPY RE-EVALUATION 08/18 DoD IMMUNIZATION ADMINISTRATION (INCLUDES PERCUTANEOUS, INTRADERMAL, SUBCUTANEOUS, OR INTRAMUSCULAR INJECTIONS); 1 VACCINE (SINGLE OR COMBINATION VACCINE/TOXOID) 08/13 DoD APPLICATION OF A MODALITY TO 1 OR MORE AREAS; IONTOPHORESIS, EACH 15 MINUTES 08/07 DoD APPLICATION OF A MODALITY TO 1 OR MORE AREAS; IONTOPHORESIS, EACH 15 MINUTES 08/05 DoD APPLICATION OF A MODALITY TO 1 OR MORE AREAS; IONTOPHORESIS, EACH 15 MINUTES 07/31 DoD APPLICATION OF A MODALITY TO 1 OR MORE AREAS; IONTOPHORESIS, EACH 15 MINUTES 07/29 DoD IMMUNIZATION ADMINISTRATION (INCLUDES PERCUTANEOUS, INTRADERMAL, SUBCUTANEOUS, OR INTRAMUSCULAR INJECTIONS); 1 VACCINE (SINGLE OR COMBINATION VACCINE/TOXOID) 07/28 DoD APPLICATION OF A MODALITY TO 1 OR MORE AREAS; IONTOPHORESIS, EACH 15 MINUTES 07/24 DoD APPLICATION OF A MODALITY TO 1 OR MORE AREAS; IONTOPHORESIS, EACH 15 MINUTES 07/22 DoD PHYSICAL THERAPY RE-EVALUATION 07/18 DoD SELF-CARE/HOME MANAGMENT TRAIN (EG,ACT OF DAILY LIVING (ADL) &COMPENSAT TRAIN,MEAL PREPARATION,SAFETY PROCS,AND INSTRUCT IN USE OF ASST TECHNOLOGY DEV/ADPT EQUIP) DIR ONE-ON-ONE CONT,EA 15 MINUTES 07/03 DoD APPLICATION OF A MODALITY TO 1 OR MORE AREAS; HOT OR COLD PACKS 07/01 DoD APPLICATION OF A MODALITY TO 1 OR MORE AREAS; HOT OR COLD PACKS 06/26 DoD APPLICATION OF A MODALITY TO 1 OR MORE AREAS; HOT OR COLD PACKS 06/24 DoD SELF-CARE/HOME MANAGMENT TRAIN (EG,ACT OF DAILY LIVING (ADL) &COMPENSAT TRAIN,MEAL PREPARATION,SAFETY PROCS,AND INSTRUCT IN USE OF ASST TECHNOLOGY DEV/ADPT EQUIP) DIR ONE-ON-ONE CONT,EA 15 MINUTES 06/17 DoD SELF-CARE/HOME MANAGMENT TRAIN (EG,ACT OF DAILY LIVING (ADL) &COMPENSAT TRAIN,MEAL PREPARATION,SAFETY PROCS,AND INSTRUCT IN USE OF ASST TECHNOLOGY DEV/ADPT EQUIP) DIR ONE-ON-ONE CONT,EA 15 MINUTES 06/12 DoD SELF-CARE/HOME MANAGMENT TRAIN (EG,ACT OF DAILY LIVING (ADL) &COMPENSAT TRAIN,MEAL PREPARATION,SAFETY PROCS,AND INSTRUCT IN USE OF ASST TECHNOLOGY DEV/ADPT EQUIP) DIR ONE-ON-ONE CONT,EA 15 MINUTES 06/10 DoD IMMUNIZATION ADMINISTRATION (INCLUDES PERCUTANEOUS, INTRADERMAL, SUBCUTANEOUS, OR INTRAMUSCULAR INJECTIONS); 1 VACCINE (SINGLE OR COMBINATION VACCINE/TOXOID) 06/09 [facility] PHYSICAL THERAPY EVALUATION 06/09 [facility] DETERMINATION OF REFRACTIVE STATE 03/07 [facility] PSYCHIATRIC EVALUATION OF HOSPITAL RECORDS, OTHER PSYCHIATRIC REPORTS, PSYCHOMETRIC AND/OR PROJECTIVE TESTS, AND OTHER ACCUMULATED DATA FOR MEDICALDIAGNOSTIC PURPOSES 01/30 [facility] BRIEF EMOTIONAL/BEHAVIORAL ASSESSMENT (EG, DEPRESSION INVENTORY, ATTENTION-DEFICIT/HYPE RACTIVITY DISORDER [ADHD] SCALE), WITH SCORING AND DOCUMENTATION, PER STANDARDIZED INSTRUMENT 12/19 [facility] INFECTIOUS AGENT ANTIGEN DETECTION BY IMMUNOASSAY WITH DIRECT OPTICAL (IE, VISUAL) OBSERVATION; STREPTOCOCCUS, GROUP A 11/16 DoD PSYCHIATRIC EVALUATION OF HOSPITAL RECORDS, OTHER PSYCHIATRIC REPORTS, PSYCHOMETRIC AND/OR PROJECTIVE TESTS, AND OTHER ACCUMULATED DATA FOR MEDICALDIAGNOSTIC PURPOSES 11/16 DoD POSTOPERATIVE FOLLOW-UP VISIT, NORMALLY INCLUDED IN THE SURGICAL PACKAGE, INDICATE THAT EVALUATION & MANAGEMENT SERVICE WAS PERFORMED DURING A POSTOPERATIVE PERIOD REASON RELATED ORIGINAL PROCEDURE 11/15 DoD BRIEF EMOTIONAL/BEHAVIORAL ASSESSMENT (EG, DEPRESSION INVENTORY, ATTENTION-DEFICIT/HYPE RACTIVITY DISORDER [ADHD] SCALE), WITH SCORING AND DOCUMENTATION, PER STANDARDIZED INSTRUMENT 11/14 DoD PHOTOREFRACTIVE KERATECTOMY (PRK) 09/25 DoD BRIEF EMOTIONAL/BEHAVIORAL ASSESSMENT (EG, DEPRESSION INVENTORY, ATTENTION-DEFICIT/HYPE RACTIVITY DISORDER [ADHD] SCALE), WITH SCORING AND DOCUMENTATION, PER STANDARDIZED INSTRUMENT 09/11 DoD BRIEF EMOTIONAL/BEHAVIORAL ASSESSMENT (EG, DEPRESSION INVENTORY, ATTENTION-DEFICIT/HYPE RACTIVITY DISORDER [ADHD] SCALE), WITH SCORING AND DOCUMENTATION, PER STANDARDIZED INSTRUMENT 08/14 DoD BRIEF EMOTIONAL/BEHAVIORAL ASSESSMENT (EG, DEPRESSION INVENTORY, ATTENTION-DEFICIT/HYPE RACTIVITY DISORDER [ADHD] SCALE), WITH SCORING AND DOCUMENTATION, PER STANDARDIZED INSTRUMENT 07/25 DoD BRIEF EMOTIONAL/BEHAVIORAL ASSESSMENT (EG, DEPRESSION INVENTORY, ATTENTION-DEFICIT/HYPE RACTIVITY DISORDER [ADHD] SCALE), WITH SCORING AND DOCUMENTATION, PER STANDARDIZED INSTRUMENT 05/16 DoD BRIEF EMOTIONAL/BEHAVIORAL ASSESSMENT (EG, DEPRESSION INVENTORY, ATTENTION-DEFICIT/HYPE RACTIVITY DISORDER [ADHD] SCALE), WITH SCORING AND DOCUMENTATION, PER STANDARDIZED INSTRUMENT 05/02 DoD BRIEF EMOTIONAL/BEHAVIORAL ASSESSMENT (EG, DEPRESSION INVENTORY, ATTENTION-DEFICIT/HYPE RACTIVITY DISORDER [ADHD] SCALE), WITH SCORING AND DOCUMENTATION, PER STANDARDIZED INSTRUMENT 04/11 DoD COMPUTERIZED CORNEAL TOPOGRAPHY, UNILATERAL OR BILATERAL, WITH INTERPRETATION AND REPORT 03/30 DoD BRIEF EMOTIONAL/BEHAVIORAL ASSESSMENT (EG, DEPRESSION INVENTORY, ATTENTION-DEFICIT/HYPE RACTIVITY DISORDER [ADHD] SCALE), WITH SCORING AND DOCUMENTATION, PER STANDARDIZED INSTRUMENT 03/28 DoD BRIEF EMOTIONAL/BEHAVIORAL ASSESSMENT (EG, DEPRESSION INVENTORY, ATTENTION-DEFICIT/HYPE RACTIVITY DISORDER [ADHD] SCALE), WITH SCORING AND DOCUMENTATION, PER STANDARDIZED INSTRUMENT 03/12 DoD DETERMINATION OF REFRACTIVE STATE 03/07 DoD BRIEF EMOTIONAL/BEHAVIORAL ASSESSMENT (EG, DEPRESSION INVENTORY, ATTENTION-DEFICIT/HYPE RACTIVITY DISORDER [ADHD] SCALE), WITH SCORING AND DOCUMENTATION, PER STANDARDIZED INSTRUMENT 02/14 DoD OSTEOPATHIC MANIPULATIVE TREATMENT (OMT); 3-4 BODY REGIONS INVOLVED 02/13 DoD BRIEF EMOTIONAL/BEHAVIORAL ASSESSMENT (EG, DEPRESSION INVENTORY, ATTENTION-DEFICIT/HYPE RACTIVITY DISORDER [ADHD] SCALE), WITH SCORING AND DOCUMENTATION, PER STANDARDIZED INSTRUMENT 01/17 DoD SCREENING TEST OF VISUAL ACUITY, QUANTITATIVE, BILATERAL 02/03 DoD FITTING OF SPECTACLES, EXCEPT FOR APHAKIA; MONOFOCAL 10/27 DoD PSYCHIATRIC EVALUATION OF HOSPITAL RECORDS, OTHER PSYCHIATRIC REPORTS, PSYCHOMETRIC AND/OR PROJECTIVE TESTS, AND OTHER ACCUMULATED DATA FOR MEDICALDIAGNOSTIC PURPOSES 04/28 DoD TELE ASSESS & MGT SRV PROV QUAL NONPHYS HLTH CARE PRO TO EST PAT,PARENT,GUARD NOT ORIG REL ASSESS & MGT SRV PROV W/IN PREV 7 DAYS NOR LEAD ASSESS & MGT SRV/PX W/IN NXT 24 HR/SOON APT;5-10 MIN MED DIS 04/14 DoD WAIVER SERVICES; NOT OTHERWISE SPECIFIED (NOS) 03/15 DoD WAIVER SERVICES; NOT OTHERWISE SPECIFIED (NOS) 03/02 DoD BRIEF COMM TECH-BASE SERV,E.G. VIRT CHK-IN,BY PHYS/OTH QUAL HCP,RPT E&M SERV,PROV TO EST PT,NOT ORIG FRM REL E/M SERV PROV W/IN PREV 7DAY NOR LEAD TO E/M SRV/PX W/IN NEXT 24HR/SOON SANDIP; 5-10 MIN DISC 03/02 DoD TELE ASSESS & MGT SRV PROV QUAL NONPHYS HLTH CARE PRO TO EST PAT,PARENT,GUARD NOT ORIG REL ASSESS & MGT SRV PROV W/IN PREV 7 DAYS NOR LEAD ASSESS & MGT SRV/PX W/IN NXT 24 HR/SOON APT;5-10 MIN MED DIS 03/01 DoD TELE ASSESS & MGT SRV PROV QUAL NONPHYS HLTH CARE PRO TO EST PAT,PARENT,GUARD NOT ORIG REL ASSESS & MGT SRV PROV W/IN PREV 7 DAYS NOR LEAD ASSESS & MGT SRV/PX W/IN NXT 24 HR/SOON APT;5-10 MIN MED DIS 02/22 DoD BRIEF EMOTIONAL/BEHAVIORAL ASSESSMENT (EG, DEPRESSION INVENTORY, ATTENTION-DEFICIT/HYPE RACTIVITY DISORDER [ADHD] SCALE), WITH SCORING AND DOCUMENTATION, PER STANDARDIZED INSTRUMENT 06/27 DoD TELE ASSESS & MGT SRV PROV QUAL NONPHYS HLTH CARE PRO TO EST PAT,PARENT,GUARD NOT ORIG REL ASSESS & MGT SRV PROV W/IN PREV 7 DAYS NOR LEAD ASSESS & MGT SRV/PX W/IN NXT 24 HR/SOON APT;5-10 MIN MED DIS 06/13 DoD PSYCHIATRIC EVALUATION OF HOSPITAL RECORDS, OTHER PSYCHIATRIC REPORTS, PSYCHOMETRIC AND/OR PROJECTIVE TESTS, AND OTHER ACCUMULATED DATA FOR MEDICALDIAGNOSTIC PURPOSES 03/09 DoD WAIVER SERVICES; NOT OTHERWISE SPECIFIED (NOS) 02/23 DoD BRIEF COMM TECH-BASE SERV,E.G. VIRT CHK-IN,BY PHYS/OTH QUAL HCP,RPT E&M SERV,PROV TO EST PT,NOT ORIG FRM REL E/M SERV PROV W/IN PREV 7DAY NOR LEAD TO E/M SRV/PX W/IN NEXT 24HR/SOON SANDIP; 5-10 MIN DISC 01/11 DoD BRIEF COMM TECH-BASE SERV,E.G. VIRT CHK-IN,BY PHYS/OTH QUAL HCP,RPT E&M SERV,PROV TO EST PT,NOT ORIG FRM REL E/M SERV PROV W/IN PREV 7DAY NOR LEAD TO E/M SRV/PX W/IN NEXT 24HR/SOON SANDIP; 5-10 MIN DISC 11/30 DoD BRIEF EMOTIONAL/BEHAVIORAL ASSESSMENT (EG, DEPRESSION INVENTORY, ATTENTION-DEFICIT/HYPE RACTIVITY DISORDER [ADHD] SCALE), WITH SCORING AND DOCUMENTATION, PER STANDARDIZED INSTRUMENT 11/04 DoD BRIEF EMOTIONAL/BEHAVIORAL ASSESSMENT (EG, DEPRESSION INVENTORY, ATTENTION-DEFICIT/HYPE RACTIVITY DISORDER [ADHD] SCALE), WITH SCORING AND DOCUMENTATION, PER STANDARDIZED INSTRUMENT 10/28 DoD BRIEF EMOTIONAL/BEHAVIORAL ASSESSMENT (EG, DEPRESSION INVENTORY, ATTENTION-DEFICIT/HYPE RACTIVITY DISORDER [ADHD] SCALE), WITH SCORING AND DOCUMENTATION, PER STANDARDIZED INSTRUMENT 10/21 DoD BRIEF EMOTIONAL/BEHAVIORAL ASSESSMENT (EG, DEPRESSION INVENTORY, ATTENTION-DEFICIT/HYPE RACTIVITY DISORDER [ADHD] SCALE), WITH SCORING AND DOCUMENTATION, PER STANDARDIZED INSTRUMENT 10/08 DoD BRIEF EMOTIONAL/BEHAVIORAL ASSESSMENT (EG, DEPRESSION INVENTORY, ATTENTION-DEFICIT/HYPE RACTIVITY DISORDER [ADHD] SCALE), WITH SCORING AND DOCUMENTATION, PER STANDARDIZED INSTRUMENT 08/27 DoD BRIEF EMOTIONAL/BEHAVIORAL ASSESSMENT (EG, DEPRESSION INVENTORY, ATTENTION-DEFICIT/HYPE RACTIVITY DISORDER [ADHD] SCALE), WITH SCORING AND DOCUMENTATION, PER STANDARDIZED INSTRUMENT 07/09 DoD REMOVAL OF SUTURES OR RUDOLPH REQUIRING ANESTHESIA (IE, GENERAL ANESTHESIA, MODERATE SEDATION) 06/01 DoD TELEHEALTH ORIGINATING SITE FACILITY FEE 04/22 DoD PSYCHOTHERAPY, 60 MINUTES WITH PATIENT 04/13 DoD PSYCHOTHERAPY, 60 MINUTES WITH PATIENT 03/24 DoD INJECTION(S); SINGLE OR MULTIPLE TRIGGER POINT(S), 1 OR 2 MUSCLE(S) 03/18 DoD PSYCHOTHERAPY, 60 MINUTES WITH PATIENT 03/13 DoD ONLINE ASSESS &MANAG SERV PROVIDE,A QUAL NONPHYS HCP TO AN ESTABLISHED PAT/GUARDIAN,NOT ORIGINAT FRM RELAT ASSESS &MANAG SERV PROVIDE W/IN THE PREV 7 DAYS,USE THE [email or web address] COMM NETWORK 03/10 DoD PSYCHOTHERAPY, 60 MINUTES WITH PATIENT 03/03 DoD PSYCHOTHERAPY, 60 MINUTES WITH PATIENT 02/16 DoD PSYCHIATRIC DIAGNOSTIC EVALUATION 01/27 [facility] BRIEF EMOTIONAL/BEHAVIORAL ASSESSMENT (EG, DEPRESSION INVENTORY, ATTENTION-DEFICIT/HYPE RACTIVITY DISORDER [ADHD] SCALE), WITH SCORING AND DOCUMENTATION, PER STANDARDIZED INSTRUMENT 11/19 [facility] ARTHROCENTESIS, ASPIRATION AND/OR INJECTION, MAJOR JOINT OR BURSA (EG, SHOULDER, HIP, KNEE, SUBACROMIAL BURSA); WITHOUT ULTRASOUND GUIDANCE 06/17 [facility] POSTOPERATIVE FOLLOW-UP VISIT, NORMALLY INCLUDED IN THE SURGICAL PACKAGE, INDICATE THAT EVALUATION & MANAGEMENT SERVICE WAS PERFORMED DURING A POSTOPERATIVE PERIOD REASON RELATED ORIGINAL PROCEDURE 08/28 [facility] PHOTOREFRACTIVE KERATECTOMY (PRK) 08/23 [facility] OPHTHALMOLOGICAL SERVICES: MEDICAL EXAMINATION AND EVALUATION, WITH INITIATION OR CONTINUATION OF DIAGNOSTIC AND TREATMENT PROGRAM; INTERMEDIATE, ESTABLISHED PATIENT 08/22 [facility] OPHTHALMIC ULTRASOUND, ECHOGRAPHY, DIAGNOSTIC; CORNEAL PACHYMETRY, UNILATERAL OR BILATERAL (DETERMINATION OF CORNEAL THICKNESS) 08/21 [facility] PURE TONE AUDIOMETRY (THRESHOLD), AUTOMATED; AIR ONLY 11/14 [facility] TELE ASSESS & MGT SRV PROV QUAL NONPHYS HLTH CARE PRO TO EST PAT,PARENT,GUARD NOT ORIG REL ASSESS & MGT SRV PROV W/IN PREV 7 DAYS NOR LEAD ASSESS & MGT SRV/PX W/IN NXT 24 HR/SOON APT;5-10 MIN MED DIS 11/13 [facility] ADMINISTRATION OF PATIENT-FOCUSED HEALTH RISK ASSESSMENT INSTRUMENT (EG, HEALTH HAZARD APPRAISAL) WITH SCORING AND DOCUMENTATION, PER STANDARDIZED INSTRUMENT 11/05 [facility] BRIEF COMM TECH-BASE SERV,E.G. VIRT CHK-IN,BY PHYS/OTH QUAL HCP,RPT E&M SERV,PROV TO EST PT,NOT ORIG FRM REL E/M SERV PROV W/IN PREV 7DAY NOR LEAD TO E/M SRV/PX W/IN NEXT 24HR/SOON SANDIP; 5-10 MIN DISC 11/02 DoD TELE ASSESS & MGT SRV PROV QUAL NONPHYS HLTH CARE PRO TO EST PAT,PARENT,GUARD NOT ORIG REL ASSESS & MGT SRV PROV W/IN PREV 7 DAYS NOR LEAD ASSESS & MGT SRV/PX W/IN NXT 24 HR/SOON APT;5-10 MIN MED DIS 10/25 DoD TELE ASSESS & MGT SRV PROV QUAL NONPHYS HLTH CARE PRO TO EST PAT,PARENT,GUARD NOT ORIG REL ASSESS & MGT SRV PROV W/IN PREV 7 DAYS NOR LEAD ASSESS & MGT SRV/PX W/IN NXT 24H/SOON APT; 11-20 MIN MED DIS 10/12 DoD TELE ASSESS & MGT SRV PROV QUAL NONPHYS HLTH CARE PRO TO EST PAT,PARENT,GUARD NOT ORIG REL ASSESS & MGT SRV PROV W/IN PREV 7 DAYS NOR LEAD ASSESS & MGT SRV/PX W/IN NXT 24 HR/SOON APT;5-10 MIN MED DIS 10/11 DoD TELE ASSESS & MGT SRV PROV QUAL NONPHYS HLTH CARE PRO TO EST PAT,PARENT,GUARD NOT ORIG REL ASSESS & MGT SRV PROV W/IN PREV 7 DAYS NOR LEAD ASSESS & MGT SRV/PX W/IN NXT 24 HR/SOON APT;5-10 MIN MED DIS 10/09 DoD TELE ASSESS & MGT SRV PROV QUAL NONPHYS HLTH CARE PRO TO EST PAT,PARENT,GUARD NOT ORIG REL ASSESS & MGT SRV PROV W/IN PREV 7 DAYS NOR LEAD ASSESS & MGT SRV/PX W/IN NXT 24 HR/SOON APT;5-10 MIN MED DIS 02/05 DoD TELE ASSESS & MGT SRV PROV QUAL NONPHYS HLTH CARE PRO TO EST PAT,PARENT,GUARD NOT ORIG REL ASSESS & MGT SRV PROV W/IN PREV 7 DAYS NOR LEAD ASSESS & MGT SRV/PX W/IN NXT 24H/SOON APT; 11-20 MIN MED DIS 01/29 DoD PURE TONE AUDIOMETRY (THRESHOLD), AUTOMATED; AIR ONLY 11/29 DoD Determination Of Refractive State Determination Of Refractive State 41221 10/27 JANAK MOTT [facility] Ophthalmological New Patient Start Comprehensive Care Ophthalmological New Patient Start Comprehensive Care 39126 10/27 JANAK MOTT Psychiat Therapy Indiv Appr 45-50 Min W/ Med Eval Managemt 03/08 SAJAN ZARATE [facility] Psychiat Therapy Indiv Appr 45-50 Min W/ Med Eval Managemt 03/02 ELLIOT, SAJAN Carranza [facility] Indiv Appr 45-50 Min W/ Med Eval Managemt 02/22 ELLIOT, SAJAN Carranza [facility] Health And Behav A e mt Each 15 Min Initial A e ment Health And Behav Assessmt Each 15 Min Initial Assessment 63281 02/01 EVAN WEATHERS Screening Test Of Visual Acuity, Quantitative, Bilateral Screening Test Of Visual Acuity, Quantitative, Bilateral 82462 01/25 MAINE GRANT Destruction Of Benign Lesion By Cryosurgery Destruction Of Benign Lesion By Cryosurgery 22755 10/21 MAINE GRANT -Cleanse lesion with alcohol prep pad. -shave top of lesion until pinpoint bleeding with an 20 scalpel blade. -apply cryo pen to lesion for 3-5 seconds, three times. -Dress with bandaid. -patient tolerated procedure well. -patient educated on the increase of inflammatory response in the next few days. Patient expressed understanding . -advised to return next week for re-treatment. f/u sooner if any problems arise. [facility] Destruction Of Flat Warts By Cryosurgery Up To 14 Lesions Destruction Of Flat Warts By Cryosurgery Up To 14 Lesions 12560 09/11 JOVI ANDRADE Informed Consent obtained. Patient tolerated procedure. [facility] Destruction Of Flat Warts By Cryosurgery Up To 14 Lesions Destruction Of Flat Warts By Cryosurgery Up To 14 Lesions 08942 08/28 JOVI ANDRADE [facility] Immunization Admin By Intranasal / Oral Route One Vaccine Immunization Admin By Intranasal / Oral Route One Vaccine 01827 06/03 SERINA NAPIER [facility] Ophthalmological Prior Patient Start Intermediate Level Care Ophthalmological Prior Patient Start Intermediate Level Care 69111 04/24 AKIL CRUZ [facility] Spectacles Services Fitting Monofocals (Not For Aphakia) Spectacles Services Fitting Monofocals (Not For Aphakia) 36519 04/17 AKIL CRUZ Determination Of Refractive State Determination Of Refractive State 20622 04/17 AKIL CRUZ Ophthalmological New Patient Start Comprehensive Care Ophthalmological New Patient Start Comprehensive Care 93627 04/17 AKIL CRUZ Screening Test Of Visual Acuity, Quantitative, Bilateral Screening Test Of Visual Acuity, Quantitative, Bilateral 14676 04/10 MAINE GRANT [facility] Audiogram (Screening) Audiogram (Screening) 75496 02/11 HILDA WOLFE Visual Function Screening Visual Function Screening 90694 02/11 HILDA WOLFE Physical Medicine Physical Therapy Re-Evaluation Physical Medicine Physical Therapy Re-Evaluation 29779 08/18 KWAME ZARATE Immunization Administration One Vaccine Immunization Administration One Vaccine 58142 08/13 YEHUDA BRAGA Human Papilloma Virus Vaccine, Quadrivalent Human Papilloma Virus Vaccine, Quadrivalent 23177 08/13 YEHUDA BRAGA Modalities Iontophoresis Modalities Iontophoresis 30490 08/07 BRAULIO ZAPATA Modalities Iontophoresis Modalities Iontophoresis 91297 08/05 BRAULIO ZAPATA Modalities Iontophoresis Modalities Iontophoresis 73555 07/31 GEORGE VEGA JR Modalities Iontophoresis Modalities Iontophoresis 03854 07/29 GEORGE VEGA JR [facility] Immunization Administration One Vaccine Immunization Administration One Vaccine 08307 07/28 YEHUDA BRAGA Influenza Split Virus Vaccine Age 3+ Years Intramuscular 07/28 YEHUDA BRAGA Modalities Iontophoresis Modalities Iontophoresis 96780 07/25 BRAULIO ZAPATA Modalities Iontophoresis Modalities Iontophoresis 57234 07/22 BRAULIO ZAPATA Physical Medicine Physical Therapy Re-Evaluation Physical Medicine Physical Therapy Re-Evaluation 92901 07/18 KWAME ZARATE Phys Therapy Education Self Care Training - Per 15 Minutes Phys Therapy Education Self Care Training - Per 15 Minutes 76503 07/03 BRAULIO ZAPATA Modalities Ultrasound Modalities Ultrasound 69003 07/03 BRAULIO ZAPATA Physical Therapy: ___ Se ion Segments, 15 Minutes Each Physical Therapy: ___ Session Segments, 15 Minutes Each 01167 07/03 BRAULIO ZAPATA Modalities Cryotherapy Cold Packs Modalities Cryotherapy Cold Packs 78619 07/01 BRAULIO ZAPATA Physical Therapy: ___ Se ion Segments, 15 Minutes Each Physical Therapy: ___ Session Segments, 15 Minutes Each 59820 07/01 BRAULIO ZAPATA Modalities Cryotherapy Cold Packs Modalities Cryotherapy Cold Packs 84717 06/26 BRAULIO ZAPATA Physical Therapy: ___ Se ion Segments, 15 Minutes Each Physical Therapy: ___ Session Segments, 15 Minutes Each 15462 06/26 BRAULIO ZAPATA Modalities Cryotherapy Cold Packs Modalities Cryotherapy Cold Packs 07000 06/24 BRAULIO ZAPATA Physical Therapy: ___ Se ion Segments, 15 Minutes Each Physical Therapy: ___ Session Segments, 15 Minutes Each 07679 06/24 BRAULIO ZAPATA Phys Therapy Education Self Care Training - Per 15 Minutes Phys Therapy Education Self Care Training - Per 15 Minutes 67721 06/17 BRAULIO ZAPATA Modalities Ultrasound Modalities Ultrasound 33487 06/17 BRAULIO ZAPATA Physical Therapy: ___ Se ion Segments, 15 Minutes Each Physical Therapy: ___ Session Segments, 15 Minutes Each 06243 06/17 BRAULIO ZAPATA Phys Therapy Education Self Care Training - Per 15 Minutes Phys Therapy Education Self Care Training - Per 15 Minutes 20662 06/12 BRAULIO ZAPATA Physical Therapy: ___ Se ion Segments, 15 Minutes Each Physical Therapy: ___ Session Segments, 15 Minutes Each 22257 06/12 BRAULIO ZAPATA Modalities Ultrasound Modalities Ultrasound 90789 06/12 BRAULIO ZAPATA Phys Therapy Education Self Care Training - Per 15 Minutes Phys Therapy Education Self Care Training - Per 15 Minutes 45258 06/10 BRAULIO ZAPATA Physical Therapy: ___ Se ion Segments, 15 Minutes Each Physical Therapy: ___ Session Segments, 15 Minutes Each 81560 06/10 BRAULIO ZAPATA Modalities Ultrasound Modalities Ultrasound 58656 06/10 BRAULIO ZAPATA Physical Medicine Physical Therapy Evaluation Physical Medicine Physical Therapy Evaluation 53162 06/09 KWAME ZARATE [facility] Immunization Administration One Vaccine Immunization Administration One Vaccine 34182 06/09 YEHUDA BRAGA Human Papilloma Virus Vaccine, Quadrivalent Human Papilloma Virus Vaccine, Quadrivalent 90960 06/09 YEHUDA BRAGA A e ment & Intervention Blood Pre ure Measured 03/06 MALICK HOFFMAN [facility] Spectacles Services Fitting Monofocals (Not For Aphakia) Spectacles Services Fitting Monofocals (Not For Aphakia) 77367 06/05 AGBINO VELOZ Determination Of Refractive State Determination Of Refractive State 72974 06/05 GABINO VELOZ Ophthalmological New Patient Start Comprehensive Care Ophthalmological New Patient Start Comprehensive Care 52960 06/05 GABINO VELOZ Screening Test Of Visual Acuity, Quantitative, Bilateral Screening Test Of Visual Acuity, Quantitative, Bilateral 04284 05/16 ARIEL LIM [facility] Non-Physician Phone Call To Patient/Provider Brief (5-10min) Non-Physician Phone Call To Patient/Provider Brief (5-10min) 82381 04/23 SARAH DIXON [facility] Pulmonary Function Tests Peak Expiratory Flow Pulmonary Function Tests Peak Expiratory Flow 20852 12/01 JING WEAVER Created by entry in Vitals Module [facility] Spectacles Services Fitting Monofocals (Not For Aphakia) Spectacles Services Fitting Monofocals (Not For Aphakia) 43971 09/08 MADELEINE KASPER [facility] Removal Of Sutures Under Anesthesia By Other Surgeon Removal Of Sutures Under Anesthesia By Other Surgeon 68679 06/01 ELAINE LORA [facility] Telehealth originating site facility fee 04/22 AMNA WEST [facility] Psychiatric Evaluation Comprehensive Examination Psychiatric Evaluation Comprehensive Examination 47877 01/28 TANIA KILLIAN [facility] Corticosteroids Injection Intraarticular Left Shoulder Corticosteroids Injection Intraarticular Left Shoulder 87118 06/17 MARY KRAMER Determination Of Refractive State Determination Of Refractive State 85437 03/07 ANDRES AZAR Ophthalmological Prior Patient Start Intermediate Level Care Ophthalmological Prior Patient Start Intermediate Level Care 52769 03/07 ANDRES AZAR Psychiatric Evaluation Review of Records and Reports Psychiatric Evaluation Review of Records and Reports 53075 01/30 JUAN MARISCAL Streptococcus Direct Screen Streptococcus Direct Screen 33586 11/16 HALEIGH CENTENO Psychiatric Evaluation Review of Records and Reports Psychiatric Evaluation Review of Records and Reports 66025 11/16 JUAN MARISCAL Postoperative Visit, Without Charge Postoperative Visit, Without Charge 95434 11/15 ANDRES AZAR Photorefractive keratectomy (PRK) 09/25 ANDRES AZAR Postoperative Visit, Without Charge Postoperative Visit, Without Charge 29643 08/28 INDER VARGAS Photorefractive keratectomy (PRK) 08/23 INDER VARGAS [facility] Ophthalmological Prior Patient Start Comprehensive Care Ophthalmological Prior Patient Start Comprehensive Care 35791 08/22 INDER VARGAS Computerized Corneal Topography Computerized Corneal Topography 06905 08/21 INDER VARGAS Corneal Pachymetry Both Eyes Corneal Pachymetry Both Eyes 60294 08/21 INDER VARGAS Determination Of Refractive State Determination Of Refractive State 61758 08/21 INDER VARGAS Ophthalmological New Patient Start Comprehensive Care Ophthalmological New Patient Start Comprehensive Care 84658 08/21 INDER VARGAS Computerized Corneal Topography Computerized Corneal Topography 28984 03/30 PRAMOD BOX Determination Of Refractive State Determination Of Refractive State 48630 03/30 PRAMOD BOX Ophthalmological Prior Patient Start Comprehensive Care Ophthalmological Prior Patient Start Comprehensive Care 91208 03/30 PRAMOD BOX Determination Of Refractive State Determination Of Refractive State 67904 03/07 ANDRES AZAR Ophthalmological Prior Patient Start Comprehensive Care Ophthalmological Prior Patient Start Comprehensive Care 91782 03/07 DORA AZARSanjana Chiang [facility] Osteopathic Manip Treatment (OMT) 3-4 Body Regions Involved Osteopathic Manip Treatment (OMT) 3-4 Body Regions Involved 85675 02/14 FATUMA CAICEDO [facility] Screening Test Of Visual Acuity, Quantitative, Bilateral Screening Test Of Visual Acuity, Quantitative, Bilateral 16570 02/03 JANAK WOODSON [facility] Spectacles Services Fitting Monofocals (Not For Aphakia) Spectacles Services Fitting Monofocals (Not For Aphakia) 01742 10/27 JANAK MOTT [facility] Threshold Audiogram (Pure Tone) Automated Threshold Audiogram (Pure Tone) Automated 0208T ALDEN PATEL [facility] Non-Physician Phone Call To Pt/Provider Intermed (11-20 min) Non-Physician Phone Call To Pt/Provider Intermed (11-20 min) 94459 LEE DALAL [facility] Non-Physician Phone Call To Patient/Provider Brief (5-10min) Non-Physician Phone Call To Patient/Provider Brief (5-10min) 76260 LEE DALAL [facility] Brief communication technology-based service, e.g. virtual check-in, by a physician or other qualified health care dell hummel who can report evaluation and management services, provided to an established patient, not originating from a related E/M service provided within the previous 7 days nor leading to an E/M service or procedure within the next 24 hours or soonest available appointment; 5-10 minutes of medical discu ion LENIN GIORDANO [facility] Psychiatric Evaluation Comprehensive Examination Psychiatric Evaluation Comprehensive Examination 37622 GABINO KNUTSON [facility] Psychiatric Evaluation Comprehensive Examination Psychiatric Evaluation Comprehensive Examination 23142 GABINO KNUTSON 90 minute intake for new allegations in FAP. [facility] Psychiatric Therapy Group (Interactive) Psychiatric Therapy Group (Interactive) 03813 GABINO KNUTSON [facility] Waiver services; not otherwise specified (NOS) YOUNG ANDRADE [facility] Psychiatric Evaluation Review of Records and Reports Psychiatric Evaluation Review of Records and Reports 50621 GABINO KNUTSON [facility] Psychiatric Evaluation Review of Records and Reports Psychiatric Evaluation Review of Records and Reports 28889 ANIL MCNULTY additional records review was conducted prior to and after the one-time eval due to inconsistent Pt reporting. 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 Social History Type Response Date Comment Sourc e This section is an empty social history section. [facility] Tobacco Never-cigarette user Cigarette use:. Never-other tobacco user (not cigarettes) Other Tobacco use:. Ambulatory Pharmacy Sexual Orientation Ambula tory Pharmacy Gender identity Ambulator y Pharmacy Sex Representation Male (finding) Un known Organization Assessment and Plan Combined list of future care activities from Department of Defense and Veterans Affairs facilities (e.g., assessment and plan notes, appointments, orders, and referrals). Additional future care activities may be listed in the Plan of Care section. Result Assessment and Plan Date Source Assessment and Plan Extracted from:Title : 422 Author: POLLO ORTIZ, RBOYN Date: 01/20/25 1. A dministrative reason for encounter Record review encounter. Online evaluation and management. Spent >21 m inutes cumulatively on patient request. 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 Does not have minimum PULHES score Due to total thyroidectomy requiring higher doses of Synthroid h is P score=2 DQ from an occupational health standpoint. Medical clearance set to DQ and 422 signed off in ASIMS. PRAP Disposition: no change Aeromedical Disposition: n/a Maj Lucina, [facility], [facility] Aeromedical Physician Teacher Of Gifted Students [facility] [place], [place] Diagnosis code Z 02.9 51681 >21 minutes 89196 11-20 minutes 28056 5-10 minutes Extracted from:Title: Optometry- OHE Author: LV WHITAKER, OD, Optometry Date: 12/01/24 1. E XAM, FORMAL OCCUPATIONAL HEALTH PROGRAM INCLUDING HEARING CONSERVATION PROGRAM, ESTABLISH BASELINE PRIOR TO OCCUPATIONAL WORKPLACE EXPOSURE Testing completed for occupational health to include: Visual Acuity, color vision, confrontation visual hawkins, slit lamp exam, and funduscopic eval. ASIMS updated. No spectacle c orrection required Normal findings with undilated exam today as patient was dilated last year. Fundus photo in clinical images. Recommend comprehensive exam with dilation q 2 years. 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 LV WHITAKER, Lt Col, OD Mine Administrator Supervisor [employer], [place] 2. B enign neoplasm of right choroid Stable. No concerning characteristics, first documented in 2023. Continue to monitor for changes.? Extracted from:Title: [facility] – [place] - [facility] OHE Author: LENIN GIORDANO MD Date: 11/30/24 1. 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 -Annual audiogram: C ompleted Nov. H-1 profile, no STS. -Annual vision exams: D ue, to schedule P er members is now a walk in, will see them tomorrow -PFT: I nitial completed. No serial exam required. -Labs: None required. -EKG: I nitial completed. No serial exam required. -PHA: UTD, coming due December 18, member will try and complete the PHAQ this week, virtual to be scheduled -On active profile, reviewed NOTE: -Member did note that his neighbor in on-base housing at [facility] had mold testing done that was elevated and he was in a legal lawson, and member's was worried about their home. 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 Does have a pet but has had it for a long time and is not having any significant new issues. To f/u with PCM as needed -seeing PT/OT offbase for finger sprain, to f/u with PCM if not resolving _ Physical Exam: OHE EXAM AREA FINDINGS Vital signs w nl Head and general body appearance, screen for deformities that could affect respirator/eyewear/PPE use w nl Ears, nose, throat, oral cavity, teeth, gums w nl Eyes with funduscopic exam to assess vasculature, confrontational hawkins d eferred, seen by optometry Neck ROM w nl Heart, lungs, thorax w nl T hyroid, cervical lymph nodes w nl Skin w nl Extremities and spine with their ROM and strength w nl Balance, DTRs, gait, coordination. w nl Pulses at wrist w nl Ability to communicate including general ability to articulate understandably w nl Behavior and affect w nl Reviewed audiogram (conducted by Public Health) U TD Reviewed visual acuity screening and color vision Distance v isual a cuity c orrectable t o 2 0/20 i n o ne e ye a nd 2 0/30 i n t he o ther. P ENDING Tetanus and diphtheria vaccination (status checked at baseline and booster every ten years) U TD Reviewed labs n /a Spirometry at initial OHE n /a Smoking status (if positive, offer enrollment in AF Smoking Cessation Program) n /a ECG only at initial OHE n /a MHA/PHA in ASIMS U TD No disqualifying conditions identified. 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 E ncounter for issue of other medical certificate Asynchronous medical c learance, member not examined or contacted. Record review only ? No active profiles Meeting PULHES/administrative requirements. No new or worsening medical conditions requiring IRILO Member meets requirements for retraining, medical clearance and AF422 completed. //SIGNED// Lt Brett SHAH USAF, JOSE, FS Family Physician/Flight Surgeon [employer] Operational Medicine Tobin BRAVO, [facility] DSN/Comm: [phone] / [phone] Extracted from:Title: [facility] finger pain Author: HARMAN LOO DO Date: 10/02/24 Finger pain F ricardo injury that MRI shows no tears, but continues to have poor ROM. -will refer to OT. f/u PRN. Ordered: Referral Request 2.0 - DoD Capt Devlin DO, USAF, Family Physician [facility] Clinic/Rattle Leak And Squeak Repairer [facility] Residency Program in [place], [place] [address] [address] Extracted from:Title: [facility] - MRI request finger pain Author: LENIN GIORDANO MD Date: 07/27/24 1. A vulsion fracture PCM Adriana 33 y.o. 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 On plain film no fracture, however consistent with [place] finger, recommended MRI to better eval. Given 2 months not unreasonable, ordering MRI and determine Occupational therapy versus surgery. -MRI ordered to rule out, however likely sprain that would benefit from OT -for now, given chronic and member RHD, no indication for TWA at this time, no AUoF notification required -dispo pending MRI, to follow up with PCM once completed to review results and recommendations //SIGNED// Lt Brett SHAH, STEPHANIE, JOSE, FS Family Physician, [facility] Grea BRAVO, [facility] Ne Guzman DSN/Comm: [phone] / [phone] 2. 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 Ordered: Referral Request 2.0 - DoD The patient i s W orld Wide Qualified. 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 Visit deployment related: N o Profile Reviewed On shaving waiver through March 2029 MEB in progress: N oIMR/ASIMS Status: [X] Green (no action), Member aware. [X] Yellow (Action), Ne rey is currently due for [X] RED (Action), Ne rey is currently OVERDUE for Extracted from:Title: [facility]- Thyroid f/u Author: RUSSELL LYNNE MD Date: 07/07/24 1Davide Lorenz raves disease - s/p ablation 10/2022, no endocrinology follow-up since then - on levothyroxine 150 mcg 6 days and 175 mcg on Saturday - TSH and calcium levels within normal - SM asymptomatic PLAN - will have SM follow-up with endocrinology, first available appointment - SM verbalized understanding - Educated on side effects of high-dose levothyroxine supplementation especially during illnesses and initiation of other medications - If chest pain, palpitation, shortness of breath go straight to emergency room - Otherwise return to clinic PRN - SM no longer going to [facility] training till 2024 Maj Mitchell [place], Tempering Machine Operator [employer] Operational Medicine Tobin james ([facility]) [place] [address] Extracted from:Title: [employer]/Synthroid Rnw Author: POLLO ORTIZ APA-C Date: 06/29/24 1. Kelechi raves disease 33yo ADAF male, SFS, here for medical clearance for [employer] s/p total thyroidectomy Oct 2022 for Graves disease. 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 A dministrative reason for encounter Pt will be doing [employer] Qualification Course, starts July 16 Patient provided CRB memorandum of FAP allegation dated 19 Aug 2019, not disqualifying. Medical Clearance and 422 signed in ASIMS Provided signed [id number], copy will be uploaded to record Fitness: No restrictions. 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 him from attending [employer] Mobility: World[employer] Qualified IMR: Green PRAP Disposition: cleared for arming Aeromedical Disposition: n/a Capt Lucina, [facility], [facility] Aeromedical Physician Teacher Of Gifted Students [facility] [employer], [place] Orders: levothyroxine(Synthroid 150 mcg oral tablet), 1 tab(s), Oral, Sat/////, for thyroid, # 80 tab(s), 0 total refill(s), Maintenance, Deployment prescription, 1 tab(s) Oral Sat/////,Instr:for thyroid, Pharmacy: [facility] [Last filled 06/29/24] levothyroxine(Synthroid 175 mcg oral tablet), 1 tab(s), Oral, Saturday, for thyroid, # 12 tab(s), 0 total refill(s), Maintenance, deployment prescription, 1 tab(s) Oral Saturday,Instr:for thyroid, Pharmacy: [facility] [Last filled 06/29/24] Extracted from:Title: 422 Author: POLLO ORTIZ APA-C Date: 06/17/24 1. A dministrative reason for encounter Record review encounter. Online evaluation and management. Spent >21 m inutes cumulatively on patient request. 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 No disqualifying diagnoses found after review of the available medical record. Patient provided CRB memorandum of FAP allegation dated 19 Aug 2019, not disqualifying. No concerning referrals or medications. Patient is 1 year s /p total thyroidectomy 2/2 Graves Disease, euthyroid with LT4 No current MR/FR/DR/C-code. Medical clearance and 422 signed off in [facility]. Patient will need SF600 for [employer] <30 days prior to class start date ; will require an appointment with patient, it can be done by Capt Ortiz or [facility] provider/PCM. Fitness: No restrictions. Duty: Shaving waiver Mobility: World-wide Qualified IMR: Green, due for seasonal flu PRAP Disposition: no change in arming status Aeromedical Disposition: n/a Capt Lucina, [facility], [facility] Aeromedical Physician Teacher Of Gifted Students [facility] [place], [place] Diagnosis code Z 02.9 81325 >21 minutes 35325 11-20 minutes 57552 5-10 minutes Extracted from:Title: [facility]: shaving waiver renewal Author: AIME CHANEY MD Date: 04/17/24 1. P seudofolliculitis barbae chronic, controlled --> shaving waiver completed 5 year With considerations to this diagnosis/procedure: Patient i s W WQ; n o disqualifying conditions found. Cleared for AFSC/MOS Duties: Y es Cleared for continued service: Yes Cleared for mobility duties: Yes Cleared for participation in physical fitness program: Yes IMR: Green MEDICATIONS RECONCILED Capt Aime Chaney MD Airfield Manager P GY-3 [facility]/ [address] [place] [address] [place] Staffed By:Justin the above note has been dictated partially or in totality with the assistance of SenseData dictation software. While it was proofread for errors, there may still be grammatical and dictation errors. Extracted from:Title: Optometry- spec rx Author: LV WHITAKER, OD Date: 01/17/24 1. R egular astigmatism of both eyes Spectacle rx released today. Final rx = Manifest. Below glasses ordered in SRTS. Discussed adaptation time to new lenses and proper wear. Discussed 2 pair requirement (DOD). Measurements of anatomical facial characteristics and laboratory specifications were taken for glasses and final adjustment was made to the visual axes and anatomical topography of the patient at patients request upon delivery. OD: -[id number] OS: [id number] pd: 66 reaper 57-15 5am [id number] Extracted from:Title: Optometry- CEE/OHE Author: LV WHITAKER, OD Date: 01/08/24 1. E XAM, FORMAL OCCUPATIONAL HEALTH PROGRAM INCLUDING HEARING CONSERVATION PROGRAM, PERIODIC FOR CONTINUED SURVEILLANCE FOR OCCUPATIONAL WORKPLACE EXPOSURE Testing completed for occupational health to include: Visual Acuity with (and without lenses), color vision, confrontation visual hawkins, slit lamp exam, and funduscopic eval. ASIMS updated. Normal findings with Dilated exam today. Mydriatic specs offered. Recommend comprehensive exam q2-3 years. 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 Pt can reschedule for manifest if desires for manifest only (undilated) if continues to have concerns with computer strain/vision. 2. 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 Retinal Photos/OCT in clinical images. Recommend rtc in 3-6 months to repeat OCT/photos. as it is a new lesion. No concerning features (size, color, shape), no srf, elevation, no lacunae/halos. D iagnosis: 1 . E XAM, FORMAL OCCUPATIONAL HEALTH PROGRAM INCLUDING HEARING CONSERVATION PROGRAM, PERIODIC FOR CONTINUED SURVEILLANCE FOR OCCUPATIONAL WORKPLACE EXPOSURE Comment: Ordered: [facility] D[facility] Img,Pstr Seg,W/Intrp and Rpt,Uni/Biltrl;Optic Nrve [id number]; 01/08/2024 13:59:00 CDT ? Ophthalmological Medical Xm&Eval Compre New Pt 1/> Vst [id number]; 01/08/2024 13:59:00 CDT D iagnosis: 2 . 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 Ophthalmological Medical Xm&Eval Compre New Pt 1/> Vst [id number]; 01/08/2024 13:59:00 CDT End of Orders Extracted from:Title: Hypothyroidism Author: PRANAV NATARAJAN Date: 12/12/23 1. G raves disease chronic, not well controlled. Pt is not able to get an appointment with Endocrinology until Jul 16. Most recent TSH: 9.26. Will change current regimen to 150mcg Saturday through Saturday and 175mcg on Saturday. Repeat labs in 3-4 weeks. Pt voiced understanding and agreement with plan. Extracted from:Title: [facility]O SPEC- Neck, Thoracic and Low back pain Author: INGE LARSEN Date: 08/28/23 D iagnosis: 1 . T horacic back pain Comment: C hiropractic Diversified Adjustments S robyn posture to Ilium, SI and L/S A T Patient was instructed to complete 3x10 sets, 2x/day of ITY band pulls. Patient was given a theraband to complete exercises. (10min) Tonic/Phasic rhomboids/levator scapulae imbalance. Tonic levator scapulae, upper rhomboids and upper thoracic erectors, paresis 4/5 scapulae retractors, lower rhomboids, lower trapezius. 1 5min attended shoulder retraction/extension of the lower rhomboids and lower trapezius. Proprioceptive Neuromuscular Facilitation stretching followed by shoulder extension isometric contraction exercises with green Theraband to strengthen weak scapulae stabilizers bilaterally. P atient to increase proprioception by performing each set standing on one leg alternating after each set. Patient to continue routine daily 3 sets of 25 reps bilaterally hold 3 secs, stretch before and after exercise O rdered: Therapeutic Px 1/> Areas Each 15 Min Exercises 11810; 08/28/2023 11:49:00 DIRECTOR OF QUALITY b GABINO Braswell DC ? [facility] New Level 3; 08/28/2023 11:49:00 DIRECTOR OF QUALITY, 25 ? Chiropractic Manipulative Tx Spinal 3-4 Regions [id number]; 08/28/2023 11:49:00 DIRECTOR OF QUALITY, AT D iagnosis: 2 . L umbago Comment: Chiropractic Diversified Adjustments S robyn posture to Ilium, SI and L/S A T O rdered: [address] [place] [address] New Level 3; 08/28/2023 11:49:00 DIRECTOR OF QUALITY, 25 b GABINO Braswell DC ? Manual Therapy Tqs 1/> Regions Each 15 Minutes [id number]; 08/28/2023 11:49:00 DIRECTOR OF QUALITY, 59 ? Chiropractic Manipulative Tx Spinal 3-4 Regions [id number]; 08/28/2023 11:49:00 DIRECTOR OF QUALITY, AT D iagnosis: 3 . C ervicalgia Comment: Chiropractic Diversified Adjustments S upine to C/S A T O rdered: [id number] - [facility] New Level 3; 08/28/2023 11:49:00 DIRECTOR OF QUALITY, 25 GABINO Herbert DC ? Chiropractic Manipulative Tx Spinal 3-4 Regions [id number]; 08/28/2023 11:49:00 DIRECTOR OF QUALITY, AT D iagnosis: 4 . C ervical segmental dysfunction Comment: Chiropractic Diversified Adjustments S upine to C/S A T O rdered: [id number] - Clinic New Level 3; 08/28/2023 11:49:00 DIRECTOR OF QUALITY, 25 b y GABINO RODRIGES DC ? Chiropractic Manipulative Tx Spinal 3-4 Regions [address]; 08/28/2023 11:49:00 DIRECTOR OF QUALITY, AT D iagnosis: 5 . T horacic segmental dysfunction Comment: Chiropractic Diversified Adjustments P sandee T/S A T O rdered: [id number] - Clinic New Level 3; 08/28/2023 11:49:00 DIRECTOR OF QUALITY, 25 b y GABINO RODRIGES DC ? Chiropractic Manipulative Tx Spinal 3-4 Regions 80778; 08/28/2023 11:49:00 DIRECTOR OF QUALITY, AT D iagnosis: 6 . L umbar segmental dysfunction Comment: Chiropractic Diversified Adjustments S robyn posture to Ilium, SI and L/S A T O rdered: 28561 - Clinic New Level 3; 08/28/2023 11:49:00 DIRECTOR OF QUALITY, 25 b y GABINO RODRIGES DC ? Chiropractic Manipulative Tx Spinal 3-4 Regions 07169; 08/28/2023 11:49:00 DIRECTOR OF QUALITY, AT Diagnosis of C ervicalgia, M54.2 T horacic Spine Pain, M54.6 L umbago M54.5 i s consistent with clinical findings of b iomechanical low back pain.SIJ dysfunction. loss of segmental ROM. _. Patient prognosis is g ood b ased on patient's initial positive response to treatment, reported decreased pain and increase in range of motion s/p treatment. Patient advised of the nature of chiropractic examination and treatment, the risks and benefits of chiropractic versus other procedures for t his condition, relative chance of each occurrence, exacerbation of current clinical s/sx, and alternative options including no treatment. Verbal informed consent was given by the patient to proceed with evaluation and treatment. Patient may expect total relief from pain, temporary relief from pain, increased pain, residual muscle soreness after the initial treatment which should resolve within a few days. If pain becomes intolerable patient to contact this clinic directly for acute care appointment and/or referral instruction. Advised patient consent may be revoked by them at any time. Pt verbalized understanding of informed consent and verbalized consent to examination and treatment today. Pt directs consent to be valid for all treatments rendered in this clinic. T hever for patient questions was allotted and all questions were answered. Luca Levin [facility] of Chiropractic E xtern, assisted _ w ith patient care. //SIGNED// Dr. Gabino Rodriges DC, RMSK Chiropractic Physician 375 Operational Medical Readiness [facility] Main Line DSN/Comm: [phone] / [phone] 08/28/23 13:18:45 Future Scheduled TestsLaboratoryTSH w/ Reflex FT4 and Total T3 01/20/25 01/23/2025 [id number] Extracted from:Title : 422 Author: POLLO ORTIZ, RZIWAN-Tobin Date: 01/20/25 1. A dministrative reason for encounter Record review encounter. Online evaluation and management. Spent >21 m inutes cumulatively on patient request. 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 Does not have minimum PULHES score Due to total thyroidectomy requiring higher doses of Synthroid h is P score=2 DQ from an occupational health standpoint. Medical clearance set to DQ and 422 signed off in ASIMS. PRAP Disposition: no change Aeromedical Disposition: n/a Maj Lucina, [facility], [facility] Aeromedical Physician Teacher Of Gifted Students [facility] [place], [place] Diagnosis code Z 02.9 49889 >21 minutes 54011 11-20 minutes 02323 5-10 minutes Extracted from:Title: Optometry- OHE Author: LV WHITAKER, OD, Optometry Date: 12/01/24 1. E XAM, FORMAL OCCUPATIONAL HEALTH PROGRAM INCLUDING HEARING CONSERVATION PROGRAM, ESTABLISH BASELINE PRIOR TO OCCUPATIONAL WORKPLACE EXPOSURE Testing completed for occupational health to include: Visual Acuity, color vision, confrontation visual hawkins, slit lamp exam, and funduscopic eval. ASIMS updated. No spectacle c orrection required Normal findings with undilated exam today as patient was dilated last year. Fundus photo in clinical images. Recommend comprehensive exam with dilation q 2 years. 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 LV WHITAKER, Lt Col, OD Mine Administrator Supervisor [employer], [place] 2. B enign neoplasm of right choroid Stable. No concerning characteristics, first documented in 2023. Continue to monitor for changes.? Extracted from:Title: [facility] [place] [place] - [facility] OHE Author: LENIN GIORDANO MD Date: 11/30/24 1. E XAM, FORMAL OCCUPATIONAL HEALTH PROGRAM INCLUDING HEARING CONSERVATION PROGRAM, PERIODIC FOR CONTINUED SURVEILLANCE FOR OCCUPATIONAL WORKPLACE EXPOSURE [facility] member seen for annual occupational health exam. -Annual audiogram: C ompleted Nov. H-1 profile, no STS. -Annual vision exams: D ue, to schedule P er members is now a walk in, will see them tomorrow -PFT: I nitial completed. No serial exam required. -Labs: None required. -EKG: I nitial completed. No serial exam required. -PHA: UTD, coming due December 18, member will try and complete the PHAQ this week, virtual to be scheduled -On active profile, reviewed NOTE: -Member did note that his neighbor in on-base housing at [facility] had mold testing done that was elevated and he was in a legal lawson, and member's was worried about their home. 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 Does have a pet but has had it for a long time and is not having any significant new issues. To f/u with PCM as needed -seeing PT/OT offbase for finger sprain, to f/u with PCM if not resolving _ Physical Exam: OHE EXAM AREA FINDINGS Vital signs w nl Head and general body appearance, screen for deformities that could affect respirator/eyewear/PPE use w nl Ears, nose, throat, oral cavity, teeth, gums w nl Eyes with funduscopic exam to assess vasculature, confrontational hawkins d eferred, seen by optometry Neck ROM w nl Heart, lungs, thorax w nl T hyroid, cervical lymph nodes w nl Skin w nl Extremities and spine with their ROM and strength w nl Balance, DTRs, gait, coordination. w nl Pulses at wrist w nl Ability to communicate including general ability to articulate understandably w nl Behavior and affect w nl Reviewed audiogram (conducted by Public Health) U TD Reviewed visual acuity screening and color vision Distance v isual a cuity c orrectable t o 2 0/20 i n o ne e ye a nd 2 0/30 i n t he o ther. P ENDING Tetanus and diphtheria vaccination (status checked at baseline and booster every ten years) U TD Reviewed labs n /a Spirometry at initial OHE n /a Smoking status (if positive, offer enrollment in AF Smoking Cessation Program) n /a ECG only at initial OHE n /a MHA/PHA in ASIMS U TD No disqualifying conditions identified. No AUoF concerns identified Member cleared for continued duty To f/u with PCM as needed //SIGNED// Lt Brett SHAH USAF, JOSE, FS Family Physician/Flight Surgeon Base Operational Medicine C jacob BRAVO, [facility] Ne Guzman DSN/Comm: [phone] / [phone] 2. 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 E ncounter for issue of other medical certificate Asynchronous medical c learance, member not examined or contacted. Record review only ? No active profiles Meeting PULHES/administrative requirements. No new or worsening medical conditions requiring IRILO Member meets requirements for retraining, medical clearance and AF422 completed. //SIGNED// Lt Brett SHAH USAF, JOSE, Family Physician/Flight Surgeon [facility] Operational Medicine C [facility] Cox , [facility] M gagandeep Line DSN/Comm: [phone] / [phone] Extracted from:Title: [facility] finger pain Author: HARMAN LOO DO Date: 10/02/24 Finger pain F ricardo injury that MRI shows no tears, but continues to have poor ROM. -will refer to OT. f/u PRN. Ordered: Referral Request 2.0 - DoD Harman Loo DO, , [facility], Family Physician [facility]/Rattle Leak And Squeak Repairer [facility] Residency Program in [place] [address] [place] [address] Extracted from:Title: [facility] - MRI request finger pain Author: LENIN GIORDANO MD Date: 07/27/24 1. A vulsion fracture PCM Adriana 33 y.o. 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 On plain film no fracture, however consistent with Jersey finger, recommended MRI to better eval. Given 2 months not unreasonable, ordering MRI and determine Occupational therapy versus surgery. -MRI ordered to rule out, however likely sprain that would benefit from OT -for now, given chronic and member RHD, no indication for TWA at this time, no AUoF notification required -dispo pending MRI, to follow up with PCM once completed to review results and recommendations //SIGNED// Lt Brett SHAH [facility], , Family Physician, [facility] [place], [facility] M gagandeep Guzman DSN/Comm: [phone] / [phone] 2. 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 Ordered: Referral Request 2.0 - DoD The patient i s [place] Wide Qualified. 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 Visit deployment related: N o Profile Reviewed On shaving waiver through March 2029 MEB in progress: N oIMR/ASIMS Status: [X] Green (no action), Member aware. [X] Yellow (Action), Ne rey is currently due for [X] RED (Action), Ne rey is currently OVERDUE for Extracted from:Title: [facility]- Thyroid f/u Author: RUSSELL LYNNE MD Date: 07/07/24 1Davide Lorenz raves disease - s/p ablation 10/2022, no endocrinology follow-up since then - on levothyroxine 150 mcg 6 days and 175 mcg on Saturday - TSH and calcium levels within normal - SM asymptomatic PLAN - will have SM follow-up with endocrinology, first available appointment - SM verbalized understanding - Educated on side effects of high-dose levothyroxine supplementation especially during illnesses and initiation of other medications - If chest pain, palpitation, shortness of breath go straight to emergency room - Otherwise return to clinic PRN - SM no longer going to [facility] training till 2024 Maj Stephen, [facility], Tempering Machine Operator [place] [employer] Tobin james ([facility]) [place] [address] Extracted from:Title: [facility]/Synthroid Rnw Author: POLLO ORTIZ APA-C Date: 06/29/24 Manuel Lorenz raves disease 33yo ADAF male, SFS, here for medical clearance for [facility] s/p total thyroidectomy Oct 2022 for Graves disease. 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 A dministrative reason for encounter Pt will be doing [employer], starts July 16 Patient provided CRB memorandum of FAP allegation dated 19 Aug 2019, not disqualifying. Medical Clearance and 422 signed in ASIMS Provided signed SF600, copy will be uploaded to record Fitness: No restrictions. 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 him from attending [employer] Mobility: World-wide Qualified IMR: Kanu RITTER Disposition: cleared for arming Aeromedical Disposition: n/a Pollo Ortiz, Capt, [employer], BS Aeromedical Physician Teacher Of Gifted Students [employer] [place], [place] Orders: levothyroxine(Synthroid 150 mcg oral tablet), 1 tab(s), Oral, Sat/////, for thyroid, # 80 tab(s), 0 total refill(s), Maintenance, Deployment prescription, 1 tab(s) Oral Sat////,Instr:for thyroid, Pharmacy: [facility] [Last filled 06/29/24] levothyroxine(Synthroid 175 mcg oral tablet), 1 tab(s), Oral, Saturday, for thyroid, # 12 tab(s), 0 total refill(s), Maintenance, deployment prescription, 1 tab(s) Oral Saturday,Instr:for thyroid, Pharmacy: [facility] [Last filled 06/29/24] Extracted from:Title: 422 Author: POLLO ORTIZ APA-C Date: 06/17/24 1. A dministrative reason for encounter Record review encounter. Online evaluation and management. Spent >21 m inutes cumulatively on patient request. 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 No disqualifying diagnoses found after review of the available medical record. Patient provided CRB memorandum of FAP allegation dated 19 Aug 2019, not disqualifying. No concerning referrals or medications. Patient is 1 year s /p total thyroidectomy 2/2 Graves Disease, euthyroid with LT4 No current MR/FR/DR/C-code. Medical clearance and 422 signed off in ASIMS. 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 provider/PCM. Fitness: No restrictions. Duty: Shaving waiver Mobility: World-wide Qualified IMR: Kanu, due for seasonal flu PRAP Disposition: no change in arming status Aeromedical Disposition: n/a Capt Lucina, [facility], [facility] Aeromedical Physician Teacher Of Gifted Students [facility] ALANA Kimball Diagnosis code Z 02.9 26131 >21 minutes 62907 11-20 minutes 74902 5-10 minutes Extracted from:Title: [facility]: shaving waiver renewal Author: AIME CHANEY MD Date: 04/17/24 1. P seudofolliculitis barbae chronic, controlled --> shaving waiver completed 5 year With considerations to this diagnosis/procedure: Patient i s W WQ; n o disqualifying conditions found. 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 While it was proofread for errors, there may still be grammatical and dictation errors. Extracted from:Title: Optometry- spec rx Author: LV WHITAKER, OD Date: 01/17/24 1. R egular astigmatism of both eyes Spectacle rx released today. Final rx = Manifest. Below glasses ordered in SRTS. Discussed adaptation time to new lenses and proper wear. Discussed 2 pair requirement (DOD). Measurements of anatomical facial characteristics and laboratory specifications were taken for glasses and final adjustment was made to the visual axes and anatomical topography of the patient at patients request upon delivery. OD: -0.25-0.12a804 OS: pl-[id number] pd: 66 reaper 57-15 5am [id number] Extracted from:Title: Optometry- CEE/OHE Author: LV WHITAKER, OD Date: 01/08/24 1. E XAM, FORMAL OCCUPATIONAL HEALTH PROGRAM INCLUDING HEARING CONSERVATION PROGRAM, PERIODIC FOR CONTINUED SURVEILLANCE FOR OCCUPATIONAL WORKPLACE EXPOSURE Testing completed for occupational health to include: Visual Acuity with (and without lenses), color vision, confrontation visual hawkins, slit lamp exam, and funduscopic eval. ASIMS updated. Normal findings with Dilated exam today. Mydriatic specs offered. Recommend comprehensive exam q2-3 years. 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 Pt can reschedule for manifest if desires for manifest only (undilated) if continues to have concerns with computer strain/vision. 2. 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 Retinal Photos/OCT in clinical images. Recommend rtc in 3-6 months to repeat OCT/photos. as it is a new lesion. No concerning features (size, color, shape), no srf, elevation, no lacunae/halos. D iagnosis: 1 . E XAM, FORMAL OCCUPATIONAL HEALTH PROGRAM INCLUDING HEARING CONSERVATION PROGRAM, PERIODIC FOR CONTINUED SURVEILLANCE FOR OCCUPATIONAL WORKPLACE EXPOSURE Comment: Ordered: Scanning Cmputrizd Ophthlmc Dx Img,Pstr Seg,W/Intrp and Rpt,Uni/Biltrl;Optic Nrve [id number]; 01/08/2024 13:59:00 CDT ? Ophthalmological Medical Xm&Eval Compre New Pt 1/> Vst [id number]; 01/08/2024 13:59:00 CDT D iagnosis: 2 . 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 Ophthalmological Medical Xm&Eval Compre New Pt 1/> Vst [id number]; 01/08/2024 13:59:00 CDT End of Orders Extracted from:Title: Hypothyroidism Author: PRANAV NATARAJAN Date: 12/12/23 1. G raves disease chronic, not well controlled. Pt is not able to get an appointment with Endocrinology until Oct 24. Most recent TSH: 9.26. Will change current regimen to 150mcg Saturday through Saturday and 175mcg on Saturday. Repeat labs in 3-4 weeks. Pt voiced understanding and agreement with plan. Extracted from:Title: CHIRO SPEC- Neck, Thoracic and Low back pain Author: INGE LARSEN Date: 08/28/23 D iagnosis: 1 . T horacic back pain Comment: C hiropractic Diversified Adjustments S robyn posture to Ilium, SI and L/S A T Patient was instructed to complete 3x10 sets, 2x/day of ITY band pulls. Patient was given a theraband to complete exercises. (10min) Tonic/Phasic rhomboids/levator scapulae imbalance. Tonic levator scapulae, upper rhomboids and upper thoracic erectors, paresis 4/5 scapulae retractors, lower rhomboids, lower trapezius. 1 5min attended shoulder retraction/extension of the lower rhomboids and lower trapezius. Proprioceptive Neuromuscular Facilitation stretching followed by shoulder extension isometric contraction exercises with green Theraband to strengthen weak scapulae stabilizers bilaterally. P atient to increase proprioception by performing each set standing on one leg alternating after each set. Patient to continue routine daily 3 sets of 25 reps bilaterally hold 3 secs, stretch before and after exercise O rdered: Therapeutic Px 1/> Areas Each 15 Min Exercises [id number]; 08/28/2023 11:49:00 [place] ? [id number] - Clinic New Level 3; 08/28/2023 11:49:00 DIRECTOR OF QUALITY, 25 ? Chiropractic Manipulative Tx Spinal 3-4 Regions [id number]; 08/28/2023 11:49:00 DIRECTOR OF QUALITY, AT D iagnosis: 2 . L umbago Comment: Chiropractic Diversified Adjustments S robyn posture to Ilium, SI and L/S A T O rdered: [id number] - Clinic New Level 3; 08/28/2023 11:49:00 DIRECTOR OF QUALITY, 25 b GABINO Braswell DC ? Manual Therapy Tqs 1/> Regions Each 15 Minutes [id number]; 08/28/2023 11:49:00 DIRECTOR OF QUALITY, 59 ? Chiropractic Manipulative Tx Spinal 3-4 Regions [address]; 08/28/2023 11:49:00 DIRECTOR OF QUALITY, AT D iagnosis: 3 . C ervicalgia Comment: Chiropractic Diversified Adjustments S upine to C/S A T O rdered: [address] [place] [address] New Level 3; 08/28/2023 11:49:00 DIRECTOR OF QUALITY, 25 b y GABINO RODRIGES DC ? Chiropractic Manipulative Tx Spinal 3-4 Regions [id number]; 08/28/2023 11:49:00 DIRECTOR OF QUALITY, AT D iagnosis: 4 . C ervical segmental dysfunction Comment: Chiropractic Diversified Adjustments S upine to C/S A T O rdered: [address] [place] [address] New Level 3; 08/28/2023 11:49:00 DIRECTOR OF QUALITY, 25 b GABINO Braswell DC ? Chiropractic Manipulative Tx Spinal 3-4 Reg[place] [address]; 08/28/2023 11:49:00 DIRECTOR OF QUALITY, AT D iagnosis: 5 . T horacic segmental dysfunction Comment: Chiropractic Diversified Adjustments P sandee T/S A T O rdered: [address] [place] [address] Level 3; 08/28/2023 11:49:00 DIRECTOR OF QUALITY, 25 b y GABINO RODRIGES DC ? Chiropractic Manipulative Tx Spinal 3-4 Regions [address]; 08/28/2023 11:49:00 DIRECTOR OF QUALITY, AT D iagnosis: 6 . L umbar segmental dysfunction Comment: Chiropractic Diversified Adjustments S robyn posture to Ilium, SI and L/S A T O rdered: [address] [place] [address] Level 3; 08/28/2023 11:49:00 DIRECTOR OF QUALITY, 25 b GABINO Braswell DC ? Chiropractic Manipulative Tx Spinal 3-4 [facility] [address]; 08/28/2023 11:49:00 DIRECTOR OF QUALITY, AT Diagnosis of C ervicalgia, M54.2 T horacic Spine Pain, M54.6 L umbago M54.5 i s consistent with clinical findings of b iomechanical low back pain.SIJ dysfunction. loss of segmental ROM. _. Patient prognosis is g ood b ased on patient's initial positive response to treatment, reported decreased pain and increase in range of motion s/p treatment. Patient advised of the nature of chiropractic examination and treatment, the risks and benefits of chiropractic versus other procedures for t his condition, relative chance of each occurrence, exacerbation of current clinical s/sx, and alternative options including no treatment. Verbal informed consent was given by the patient to proceed with evaluation and treatment. Patient may expect total relief from pain, temporary relief from pain, increased pain, residual muscle soreness after the initial treatment which should resolve within a few days. If pain becomes intolerable patient to contact this clinic directly for acute care appointment and/or referral instruction. Advised patient consent may be revoked by them at any time. Pt verbalized understanding of informed consent and verbalized consent to examination and treatment today. Pt directs consent to be valid for all treatments rendered in this clinic. T hever for patient questions was allotted and all questions were answered. Luca Levin [facility] of Chiropractic E xtern, assisted _ w [facility] patient care. //SIGNED// Dr. Gabino Rodriges, RISA, RMSK Chiropractic Physician [facility] Operational Medical Readiness [facility] [place], [place] Clinic Main Line DSN/Comm: [phone] / [phone] 08/28/23 13:18:45 Future Scheduled TestsLaboratoryTSH w/ Reflex FT4 and Total T3 01/20/25 01/23/2025 [id number] Extracted from:Title : 422 Author: POLLO ORTIZ APA-Tobin Date: 01/20/25 1. A dministrative reason for encounter Record review encounter. Online evaluation and management. Spent >21 m inutes cumulatively on patient request. 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 Does not have minimum PULHES score Due to total thyroidectomy requiring higher doses of Synthroid h is P score=2 DQ from an occupational health standpoint. Medical clearance set to DQ and 422 signed off in ASIMS. PRAP Disposition: no change Aeromedical Disposition: n/a Maj Lucina, [facility], BSC Aeromedical Physician Teacher Of Gifted Students [facility] Medical [facility] [place], [place] Diagnosis code Z 02.9 11621 >21 minutes 75733 11-20 minutes 72037 5-10 minutes Extracted from:Title: Optometry- OHE Author: LV WHITAKER OD, Optometry Date: 12/01/24 1. E XAM, FORMAL OCCUPATIONAL HEALTH PROGRAM INCLUDING HEARING CONSERVATION PROGRAM, ESTABLISH BASELINE PRIOR TO OCCUPATIONAL WORKPLACE EXPOSURE Testing completed for occupational health to include: Visual Acuity, color vision, confrontation visual hawkins, slit lamp exam, and funduscopic eval. ASIMS updated. No spectacle c orrection required Normal findings with undilated exam today as patient was dilated last year. Fundus photo in clinical images. Recommend comprehensive exam with dilation q 2 years. 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 LV WHITAKER, Lt Col, OD Mine Administrator Supervisor [place], [place] 2. B enign neoplasm of right choroid Stable. No concerning characteristics, first documented in 2023. Continue to monitor for changes.? Extracted from:Title: [facility] [place] - [facility] OHE Author: LENIN GIORDANO MD Date: 11/30/24 1. E ANGEL, FORMAL OCCUPATIONAL HEALTH PROGRAM INCLUDING HEARING CONSERVATION PROGRAM, PERIODIC FOR CONTINUED SURVEILLANCE FOR OCCUPATIONAL WORKPLACE EXPOSURE [facility] member seen for annual occupational health exam. -Annual audiogram: C ompleted Mar. H-1 profile, no STS. -Annual vision exams: D ue, to schedule P er members is now a walk in, will see them tomorrow -PFT: I nitial completed. No serial exam required. -Labs: None required. -EKG: I nitial completed. No serial exam required. -PHA: UTD, coming due December 18, member will try and complete the PHAQ this week, virtual to be scheduled -On active profile, reviewed NOTE: -Member did note that his neighbor in on-base housing at [facility] had mold testing done that was elevated and he was in a legal alwson, and member's was worried about their home. 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 Does have a pet but has had it for a long time and is not having any significant new issues. To f/u with PCM as needed -seeing PT/OT offbase for finger sprain, to f/u with PCM if not resolving _ Physical Exam: OHE EXAM AREA FINDINGS Vital signs w nl Head and general body appearance, screen for deformities that could affect respirator/eyewear/PPE use w nl Ears, nose, throat, oral cavity, teeth, gums w nl Eyes with funduscopic exam to assess vasculature, confrontational hawkins d eferred, seen by optometry Neck ROM w nl Heart, lungs, thorax w nl T hyroid, cervical lymph nodes w nl Skin w nl Extremities and spine with their ROM and strength w nl Balance, DTRs, gait, coordination. w nl Pulses at wrist w nl Ability to communicate including general ability to articulate understandably w nl Behavior and affect w nl Reviewed audiogram (conducted by [employer]) U TD Reviewed visual acuity screening and color vision Distance v isual a cuity c orrectable t o 2 0/20 i n o ne e ye a nd 2 0/30 i n t he o ther. P ENDING Tetanus and diphtheria vaccination (status checked at baseline and booster every ten years) U TD Reviewed labs n /a Spirometry at initial OHE n /a Smoking status (if positive, offer enrollment in AF Smoking Cessation Program) n /a ECG only at initial OHE n /a MHA/PHA in ASIID U TD No disqualifying conditions identified. No AUoF concerns identified Member cleared for continued duty To f/u with PCM as needed //SIGNED// LENIN GIORDANO, Col, USAF, MC, FS Family Physician/Flight Surgeon Base Operational Medicine C jacob BRAVO, [facility] Ne Guzman DSN/Comm: [phone] / [phone] 2. G raves disease [facility], January 2024 TSH=1.17 and Jun 2024 TSH=0.789 so honestly there is almost certainly minimal clinical benefit to taking a 175mcg dose on Saturday and 150mcg dose the other days, however defer to specialist and PCM -annual TSH UTD, per member they are rechecking it offbase, t o f/u with PCM as needed Extracted from:Title: [facility] - Medical clearance retraining, record review only Author: LENIN GIORDANO MD Date: 11/13/24 1. E maryaner for issue of other medical certificate Asynchronous medical c learance, member not examined or contacted. Record review only ? No active profiles Meeting PULHES/administrative requirements. No new or worsening medical conditions requiring IRILO Member meets requirements for retraining, medical clearance and AF422 completed. //SIGNED// Lt Brett SHAH USAF, , Family Physician/Flight Surgeon [facility] Operational Medicine C jacob BRAVO, [facility] DSN/Comm: [phone] / [phone] Extracted from:Title: [facility] finger pain Author: HARMAN LOO DO Date: 10/02/24 Finger pain F ricardo injury that MRI shows no tears, but continues to have poor ROM. -will refer to OT. f/u PRN. Ordered: Referral Request 2.0 - James Loo DO, Capt [facility], Family Physician [facility]/[employer] Leak And Squeak Repairer [facility] Residency Program in [place], [place] [address] [address] Extracted from:Title: [facility] - MRI request finger pain Author: LENIN GIORDANO MD Date: 07/27/24 1. A vulsion fracture PCM Adriana 33 y.o. 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 On plain film no fracture, however consistent with Jersey finger, recommended MRI to better eval. Given 2 months not unreasonable, ordering MRI and determine Occupational therapy versus surgery. -MRI ordered to rule out, however likely sprain that would benefit from OT -for now, given chronic and member RHD, no indication for TWA at this time, no AUoF notification required -dispo pending MRI, to follow up with PCM once completed to review results and recommendations //SIGNED// Lt Brett SHAH USAF, , Family Physician, [facility] [place] BRAOV, [facility] Gu[place]man DSN/Comm: [phone] / [phone] 2. 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 Ordered: Referral Request 2.0 - DoD The patient i s [place] Wide Qualified. 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 Visit deployment related: N o Profile Reviewed On shaving waiver through March 2029 MEB in progress: N oIMR/ASIMS Status: [X] Green (no action), Member aware. [X] Yellow (Action), Ne rey is currently due for [X] RED (Action), Ne rey is currently OVERDUE for Extracted from:Title: [facility]- Thyroid f/u Author: RUSSELL LYNNE MD Date: 07/07/24 1Davide Lorenz raves disease - s/p ablation 10/2022, no endocrinology follow-up since then - on levothyroxine 150 mcg 6 days and 175 mcg on Saturday - TSH and calcium levels within normal - SM asymptomatic PLAN - will have SM follow-up with endocrinology, first available appointment - SM verbalized understanding - Educated on side effects of high-dose levothyroxine supplementation especially during illnesses and initiation of other medications - If chest pain, palpitation, shortness of breath go straight to emergency room - Otherwise return to clinic PRN - SM no longer going to [facility] training till 2024 Maj Stephen, DEEPTHI, Tempering Machine Operator [place] Operational [employer] Tobin james ([facility]) [place] [address] Extracted from:Title: [facility]/Synthroid Rnw Author: POLLO ORTIZ APA-C Date: 06/29/24 1. 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 A dministrative reason for encounter Pt will be doing [employer] Qualification Course, starts July 16 Patient provided CRB memorandum of FAP allegation dated 19 Aug 2019, not disqualifying. Medical Clearance and 422 signed in ASIMS Provided signed [id number], copy will be uploaded to record Fitness: No restrictions. 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 him from attending [employer] Mobility: World-wide Qualified IMR: Kanu RITTER Disposition: cleared for arming Aeromedical Disposition: n/a Pollo Ortiz, , [facility], [facility] Aeromedical Physician Teacher Of Gifted Students [facility] Medical Group [place], [place] Orders: levothyroxine(Synthroid 150 mcg oral tablet), 1 tab(s), Oral, Sat/////, for thyroid, # 80 tab(s), 0 total refill(s), Maintenance, Deployment prescription, 1 tab(s) Oral Sat////,Instr:for thyroid, Pharmacy: [facility] [Last filled 06/29/24] levothyroxine(Synthroid 175 mcg oral tablet), 1 tab(s), Oral, Saturday, for thyroid, # 12 tab(s), 0 total refill(s), Maintenance, deployment prescription, 1 tab(s) Oral Saturday,Instr:for thyroid, Pharmacy: [facility] [Last filled 06/29/24] Extracted from:Title: 422 Author: POLLO ORTIZ APA-C Date: 06/17/24 1. A dministrative reason for encounter Record review encounter. Online evaluation and management. Spent >21 m inutes cumulatively on patient request. 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 No disqualifying diagnoses found after review of the available medical record. Patient provided CRB memorandum of FAP allegation dated 19 Aug 2019, not disqualifying. No concerning referrals or medications. Patient is 1 year s /p total thyroidectomy 2/2 Graves Disease, euthyroid with LT4 No current MR/FR/DR/C-code. Medical clearance and 422 signed off in [facility]. Patient will need SF600 for [employer] <30 days prior to class start date ; will require an appointment with patient, it can be done by Capt Ortiz or [facility] provider/PCM. Fitness: No restrictions. Duty: Shaving waiver Mobility: World-wide Qualified IMR: Green, due for seasonal flu PRAP Disposition: no change in arming status Aeromedical Disposition: n/a Capt Lucina, [facility], [facility] Aeromedical Physician Teacher Of Gifted Students [facility] Medical Group ALANA Kimball Diagnosis code Z 02.9 39291 >21 minutes 90243 11-20 minutes 18937 5-10 minutes Extracted from:Title: [facility]: shaving waiver renewal Author: AIME CHANEY MD Date: 04/17/24 1. P seudofolliculitis barbae chronic, controlled --> shaving waiver completed 5 year With considerations to this diagnosis/procedure: Patient i s W WQ; n o disqualifying conditions found. 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 While it was proofread for errors, there may still be grammatical and dictation errors. Extracted from:Title: Optometry- spec rx Author: LV WHITAKER, OD Date: 01/17/24 1. R egular astigmatism of both eyes Spectacle rx released today. Final rx = Manifest. Below glasses ordered in SRTS. Discussed adaptation time to new lenses and proper wear. Discussed 2 pair requirement (DOD). Measurements of anatomical facial characteristics and laboratory specifications were taken for glasses and final adjustment was made to the visual axes and anatomical topography of the patient at patients request upon delivery. OD: -0.25-0.50d678 OS: pl-0.85s100 pd: 66 reaper 57-15 5am [id number] Extracted from:Title: Optometry- CEE/OHE Author: LV WHITAKER, OD Date: 01/08/24 1. E XAM, FORMAL OCCUPATIONAL HEALTH PROGRAM INCLUDING HEARING CONSERVATION PROGRAM, PERIODIC FOR CONTINUED SURVEILLANCE FOR OCCUPATIONAL WORKPLACE EXPOSURE Testing completed for occupational health to include: Visual Acuity with (and without lenses), color vision, confrontation visual hawkins, slit lamp exam, and funduscopic eval. ASIMS updated. Normal findings with Dilated exam today. Mydriatic specs offered. Recommend comprehensive exam q2-3 years. 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 Pt can reschedule for manifest if desires for manifest only (undilated) if continues to have concerns with computer strain/vision. 2. 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 Retinal Photos/OCT in clinical images. Recommend rtc in 3-6 months to repeat OCT/photos. as it is a new lesion. No concerning features (size, color, shape), no srf, elevation, no lacunae/halos. D iagnosis: 1 . E XAM, FORMAL OCCUPATIONAL HEALTH PROGRAM INCLUDING HEARING CONSERVATION PROGRAM, PERIODIC FOR CONTINUED SURVEILLANCE FOR OCCUPATIONAL WORKPLACE EXPOSURE Comment: Ordered: Scanning Cmputrizd Ophthlmc Dx Img,Pstr Seg,W/Intrp and Rpt,Uni/Biltrl;Optic Nrve [id number]; 01/08/2024 13:59:00 CDT ? Ophthalmological Medical Xm&Eval Compre New Pt > Vst 96779; 01/08/2024 13:59:00 CDT D iagnosis: 2 . 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 Ophthalmological Medical Xm&Eval Compre New Pt Vst 50212; 01/08/2024 13:59:00 CDT End of Orders Extracted from:Title: Hypothyroidism Author: PRANAV NATARAJAN Date: 12/12/23 1Davide Lorenz raves disease chronic, not well controlled. Pt is not able to get an appointment with Endocrinology until Jul 16. Most recent TSH: 9.26. Will change current regimen to 150mcg Saturday through Saturday and 175mcg on Saturday. Repeat labs in 3-4 weeks. Pt voiced understanding and agreement with plan. Extracted from:Title: CHIRO SPEC- Neck, Thoracic and Low back pain Author: INGE LARSEN Date: 08/28/23 D iagnosis: 1 . T horacic back pain Comment: C hiropractic Diversified Adjustments S robyn posture to [place], SI and L/S A T Patient was instructed to complete 3x10 sets, 2x/day of ITY band pulls. Patient was given a theraband to complete exercises. (10min) Tonic/Phasic rhomboids/levator scapulae imbalance. Tonic levator scapulae, upper rhomboids and upper thoracic erectors, paresis 4/5 scapulae retractors, lower rhomboids, lower trapezius. 1 5min attended shoulder retraction/extension of the lower rhomboids and lower trapezius. Proprioceptive Neuromuscular Facilitation stretching followed by shoulder extension isometric contraction exercises with green Theraband to strengthen weak scapulae stabilizers bilaterally. P atient to increase proprioception by performing each set standing on one leg alternating after each set. Patient to continue routine daily 3 sets of 25 reps bilaterally hold 3 secs, stretch before and after exercise O rdered: Therapeutic Px 1/> Areas Each 15 Min Exercises [id number]; 08/28/2023 11:49:00 [place] ? [id number] - Clinic New Level 3; 08/28/2023 11:49:00 DIRECTOR OF QUALITY, 25 ? Chiropractic Manipulative Tx Spinal 3-4 Reg[facility] [id number]; 08/28/2023 11:49:00 DIRECTOR OF QUALITY, AT D iagnosis: 2 . L umbago Comment: Chiropractic Diversified Adjustments S robyn posture to [place], SI and L/S A T O rdered: [id number] - Clinic New Level 3; 08/28/2023 11:49:00 DIRECTOR OF QUALITY, 25 GABINO Herbert DC ? Manual Therapy Tqs 1/> Regions Each 15 Minutes [id number]; 08/28/2023 11:49:00 DIRECTOR OF QUALITY, 59 ? Chiropractic Manipulative Tx Spinal 3-4 [facility] [id number]; 08/28/2023 11:49:00 DIRECTOR OF QUALITY, AT D iagnosis: 3 . C ervicalgia Comment: Chiropractic Diversified Adjustments S upine to C/S A T O rdered: [facility] New Level 3; 08/28/2023 11:49:00 DIRECTOR OF QUALITY, 25 b y GABINO RODRIGES DC ? Chiropractic Manipulative Tx Spinal 3-4 [facility] [id number]; 08/28/2023 11:49:00 DIRECTOR OF QUALITY, AT D iagnosis: 4 . C ervical segmental dysfunction Comment: Chiropractic Diversified Adjustments S upine to C/S A T O rdered: [address] [place] [address] New Level 3; 08/28/2023 11:49:00 DIRECTOR OF QUALITY, 25 b GABINO Braswell DC ? Chiropractic Manipulative Tx Spinal 3-4 [facility] [id number]; 08/28/2023 11:49:00 DIRECTOR OF QUALITY, AT D iagnosis: 5 . T horacic segmental dysfunction Comment: Chiropractic Diversified Adjustments P sandee T/S A T O rdered: [address] [place] [address] New Level 3; 08/28/2023 11:49:00 DIRECTOR OF QUALITY, 25 b GABINO Braswell DC ? Chiropractic Manipulative Tx Spinal 3-4 [facility] [id number]; 08/28/2023 11:49:00 DIRECTOR OF QUALITY, AT D iagnosis: 6 . L umbar segmental dysfunction Comment: Chiropractic Diversified Adjustments S robny posture to [place], SI and L/S A T O rdered: [address] [place] [address] New Level 3; 08/28/2023 11:49:00 DIRECTOR OF QUALITY, 25 b GABINO Braswell DC ? Chiropractic Manipulative Tx Spinal 3-4 [facility] [id number]; 08/28/2023 11:49:00 DIRECTOR OF QUALITY, AT Diagnosis of C ervicalgia, M54.2 T horacic Spine Pain, M54.6 L umbago M54.5 i s consistent with clinical findings of b iomechanical low back pain.SIJ dysfunction. loss of segmental ROM. _. Patient prognosis is g ood b ased on patient's initial positive response to treatment, reported decreased pain and increase in range of motion s/p treatment. Patient advised of the nature of chiropractic examination and treatment, the risks and benefits of chiropractic versus other procedures for t his condition, relative chance of each occurrence, exacerbation of current clinical s/sx, and alternative options including no treatment. Verbal informed consent was given by the patient to proceed with evaluation and treatment. Patient may expect total relief from pain, temporary relief from pain, increased pain, residual muscle soreness after the initial treatment which should resolve within a few days. If pain becomes intolerable patient to contact this clinic directly for acute care appointment and/or referral instruction. Advised patient consent may be revoked by them at any time. Pt verbalized understanding of informed consent and verbalized consent to examination and treatment today. Pt directs consent to be valid for all treatments rendered in this clinic. T hever for patient questions was allotted and all questions were answered. Luca Levin [facility] E xtern, assisted _ w ith patient care. //SIGNED// Dr. Gabino Rodriges DC, [facility] Chiropractic Physician [address] [employer] [employer] Sherif Boss [facility] Main Line DSN/Comm: [phone] / [phone] 08/28/23 13:18:45 Future Scheduled TestsLaboratoryTSH w/ Reflex FT4 and Total T3 01/20/25 01/23/2025 Unknown Organization Functional Status Combined list of recent functional and cognitive assessments recorded at [facility] Functional [place] Measurement (FIM) Scale: 1 = Total Assistance (Subject = 0% +), 2 = Maximal Assistance (Subject = 25% +), 3 = Moderate Assistance (Subject = 50% +), 4 = Minimal Assistance (Subject = 75% +), 5 = Supervision, 6 = Modified [place] (Device), 7 = Complete [place] (Timely, Safely). Assessment Date/Time Source Assessment Type Assessment Skill Assessment Score Assessment Details No data available for this section
[2025-01-25 17:14] LABS: Thyroid Peroxidase Antibodies 36 IU/mL (<9)
[2025-01-26 09:23] LABS: Thyroglobulin <0.1 ng/mL; Thyroglobulin Antibodies <1 IU/mL (< or = 1)
== END 2025-01-23 11:07 | disposition home or self-care (01) ==
LOC: ANHLAB 11:10
PROVIDERS: Visit Provider Internal Medicine
DX: E55.9 Vitamin D deficiency, unspecified (principal); E89.0 Postprocedural hypothyroidism; Z98.890 Other specified postprocedural states; Z90.89 Acquired absence of other organs
CPT/HCPCS: 36415; 80053; 82306; 83036; 84432; 84439; 84443; 86376; 86800

== ENCOUNTER 2025-02-16 15:38 | Outpatient (CLI) | payer OTHER, SELFPAY ==
--- OUTSIDE RECORDS SUMMARY | 2025-02-16 15:42 | XMS_ITS | Clinical Summary ---
Author Organization [facility] Address [address] [place] [address] Care Team Providers Care Logistics Vice President Name Role Phone Manny Serrato PA-C Primary Care Provider Source Comments [facility],non-owned Affiliates and Associated Physician Practices is amultiple site organization consisting of ambulatory clinics and hospital sitesin [place], [place], [place] and [place]. This disclosure is being madepursuant to the Care Everywhere program and may not contain all information available regarding this patient. 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 Gender Identity Not on file Sexual Orientation Not on file Last Filed Vital Signs Vital Sign Reading Time Taken Comments Blood Pressure 118/72 10/23/2021 1:52 PM PRODUCTION SUPPORT ANALYST Pulse 90 10/23/2021 1:52 PM PRODUCTION SUPPORT ANALYST Temperature 36.8 C (98.2 F) 10/23/2021 1:52 PM PRODUCTION SUPPORT ANALYST Respiratory Rate - - Oxygen Saturation 97% 10/23/2021 1:52 PM PRODUCTION SUPPORT ANALYST Inhaled Oxygen Concentration - - Weight 81.5 kg (179 lb 9.6 oz) 10/23/2021 1:52 P M PRODUCTION SUPPORT ANALYST Height - - Body Mass Index - [...] patient's age to complete this topic Insurance [facility] Care Teams Logistics Vice President Relationship Specialty Start Date End Date Manny Serrato PA-C [address] [id number] PCP - General 10/20/21
--- OUTSIDE RECORDS SUMMARY | 2025-02-16 15:42 | XMS_ITS | Continuity of Care Document ---
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 Chemistry eGFR CKD EPI 103 mL/min/1 .73_m2 [...] Severe decrease <15 Kidney failure 0055A-3 [facility] TSH 1.170 mIU/L 0.270 - 4.200 02/18 N Interpretiv e Data: Recommend: TPO/Thyrope roxidase Antibody when TSH result is > 4.2 uIU/mL 5600A-U [facility] EPILAB Chemistry Glucose Fasting 87 mg/dL 74 - 99 12/15 N -3 75th [facility] Gera Immunolog y/Serolog y Endomysial Ab IgA LC Negative 12/10 Result Comment: Performed At: [facility] [address] [place] [address] [id number] Michael Otoole PhD Ph:[phone] [address] [place], [place] [address]Melchor Boss Immunolog y/Serolog y Deamidated Gliadin IgG LC 4 unit(s) 12/10 Result Comment: Negative 0 - 19 Weak Positive 20 - 30 Moderate to Strong Positive >30 Performed At: [facility] [address] [place], [place] [id number] Michael Otoole PhD Ph:[phone] 0055A-3 75th [facility] Immunolog y/Serolog y Deamidated Gliadin IgA LC 4 unit(s) 12/10 Result Comment: Negative 0 - 19 Weak Positive 20 - 30 Moderate to Strong Positive >30 0055A-3 [facility] Immunolog y/Serolog y Anti-tissue Transglutam inase [...] Data: Methodology : Immunoturbi dimetric assay 5600A-U [facility] EPILAB Infectiou s Disease HIV-1/O/2 Non-Reac tive 13 [...] Prevention' s HIV diagnostic algorithm. Refer to [facility] Lab Guide for additional information : [email or web address] [facility]/ [email or web address]/EPIL ab/[email or web address]/la [email or web address]_guide.asp x Testing performed by [employer]. 5600A-U [facility] Chemistry TSH 9.260 mIU/L 0.270 - 4.200 12/03 H Interpretiv e Data: Recommend: TPO/Thyrope roxidase Antibody when TSH result is > 4.2 uIU/mL 5600A-U [facility] Chemistry Vitamin D 25 OH 30.8 ng/mL [...] and other findings. Testing performed by [employer] [employer]. 5600A-U [facility] EPILAB Chemistry T4 Free 1.62 ng/dL 0.93 - 1.70 12/03 N Interpretiv e Data: METHODOLOGY : Testing performed by electrochem iluminescen t immunoassay (ECLIA). 5600A-U [facility] EPILAB Molecular Infectiou s Disease GC NAAT, [...] 0.5% for GC. At this prevalence, the Context Mat[employer] r estimates the overall sensitivity and specificity for CT to be 94.1% and 99.6% respectivel y. For GC the sensitivity and specificity rates are 97.1% and 99.8%. The Positive Predictive Value and the Negative Predictive Value calculated by the [employer] r using the above clinical trial data [...] Methodology : NAAT Notifiable result/cond ition for [facility] department. Notify your local [facility] public health immediately for proper notificatio n. [...] Public Health () department, notify your local [facility] immediately for proper notificatio n. 5600A-U [facility] EPILAB Chemistry TSH 10.600 mIU/L 0.270 - 4.200 07/31 H Interpretiv e Data: Recommend: TPO/Thyrope roxidase Antibody when TSH result is > 4.2 uIU/mL 5600A-U [facility] Chemistry Vitamin D 25 OH 23.3 ng/mL [...] and other findings. Testing performed by Ame oneill 5600A-U [facility] Miscellan eous Sendouts Repository Sample Received (07/29/23 11:34 AM) 07/29 N 5600A-U Protek-dor Vital Signs Combined list of inpatient and outpatient Vital Signs from Department of Defense and Veterans Affairs, ranging from 12 months to all on record, depending upon the facility. Vital Sign Value Date Comments Source Temperature Oral 36.8 Jennifer 07/27/2024 17:00:00 [facility]C-[facility] Peripheral Pulse Rate 68 bpm 07/27/2024 17:00:00 [facility] Respiratory Rate 16 br/min 07/27/2024 17:00:00 [facility] Systolic Blood Pressure 120 mm[Hg] 07/27/2024 17:00:00 [facility] Diastolic Blood Pressure 88 mm[Hg] 07/27/2024 17:00:00 [facility] Mean Arterial Pressure, Calc 99 mm[Hg] 07/27/2024 17:00:00 [facility] Temperature Oral 36.8 Jennifer 04/17/2024 14:34:00 [facility] Respiratory Rate 16 br/min 04/17/2024 14:34:00 00[facility] [...] Source [employer](Ped iatric Clinic) OUTPATIENT [id number] back pain/pr REJI Coppola 10/08 Released w/o Limitations [employer](P ediatri c Clinic) [facility](Ped iatric Clinic) OUTPATIENT [id number] 16 YR OLD SPORTS PHYSICA EDDIE LEIGH 07/22 Released w/o Limitations [employer](P ediatri c Clinic) [facility](Ped iatric Clinic) OUTPATIENT [id number] C/O PAINFUL RT ANKLE WORSENI NG LIZETTE, JESUS C 03/30 Released w/o Limitations [employer](P ediatri c Clinic) [employer](Ped [facility]ric [facility]) OUTPATIENT [id number] C/O COUGH/C ONGESTI ON IZABEL DEMARCO 01/12 Released w/o Limitations [employer](P ediatri c Clinic) [employer](Ped [facility]atric [facility]) TELE CONSULT [id number] ZOEY OBRIEN FOR ARMAND ARANDA 01/13 [employer](P ediatri c Clinic) [employer](Ped iatric Clinic) OUTPATIENT [id number] INJURY RELATED -DISCUS S KNEE PAIN JESUS BAUER 04/21 Released w/o Limitations [employer](P ediatri c Clinic) [facility] [place] [address](Opt ometry Clinic [facility]) OUTPATIENT [id number] DELILAH NIELSEN 09/08 Released w/o Limitations [facility] [place] [address](O ptometr y Clinic [facility]) [place] [address]([facility]) OUTPATIENT [id number] SMALLPO X IMMUNIZ TIMMY DO 11/28 Released w/o Limitations [facility] [place] [address](D [facility]) [place] [address](Count includes the [facility]) OUTPATIENT [id number] 1330- [place] MINH GAMING 01/22 Released w/o Limitations [facility] [place] [address](T [facility] d) [employer](War rior Operation al Med A-AD) OUTPATIENT [id number] Lt knee pain OMANJULA U 04/18 Released with Work/Duty Limitations [employer](W arrior Operati onal Med A-AD) [employer](War rior Operation al Med A-AD) TELE CONSULT [id number] x-ray results SARAH DIXON 04/19 Advice Assessment [employer](W arrior Operati onal Med A-AD) [employer](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) OUTPATIENT [id number] ARIEL GILLIS 05/16 Released w/o Limitations [employer](M edical Standar ds Managem ent) [employer]([facility]) OUTPATIENT [id number] eye exam GABINO VELOZ 06/05 Released w/o Limitations [employer](O AB Optomet ry Clinic) [employer](War rior Operation al Med A-AD) OUTPATIENT [id number] injured foot f/u, had xrays 3 months ago but he never get called for result SERINA ZAVALETA 07/17 Released w/o Limitations [employer](W arrior Operati onal Med A-AD) [employer](Arnold n [facility] Team C) OUTPATIENT [id number] sleep SERINA Zamarripa 09/05 Released w/o Limitations [employer](O whitaker [facility] Team C) [employer](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) OUTPATIENT [id number] PHA MALICK HOFFMAN 03/06 Released w/o Limitations [employer](M edical Standar ds Managem ent) [place] [facility] OUTPATIENT [id number] Back and knee pain JENY PADRON 05/22 Released w/o Limitations [place] [place] [facility] ([facility]) OUTPATIENT [id number] PATELLO FEMORAL SYNDROM E LEFT TESSA KWAME D 06/09 Released w/o Limitations [place] [facility]) [place] [facility] OUTPATIENT [id number] Notes Entered by: JOSEE BRAGA 09 Jun 2012 1117 ------- ------- ------- ------- -- HPV vaccine JAMAL ALMONTE 06/09 Released w/o Limitations [place]) OUTPATIENT [id number] BRAULIO ZAPATA 06/10 Released w/o Limitations [place] [facility]) [place]) OUTPATIENT [id number] BRAULIO ZAPATA 06/12 Released w/o Limitations [place] [facility] [place] [facility]) OUTPATIENT [id number] BRAULIO ZAPATA 06/17 Released w/o Limitations [place] [facility] [place]) OUTPATIENT [id number] BRAULIO ZAPATA 06/19 Released w/o Limitations [place]) [place] [facility]) OUTPATIENT [id number] BRAULIO ZAPATA 06/24 Released w/o Limitations [place] [facility] [place] [facility]) OUTPATIENT [id number] BRAULIO ZAPATA 06/26 Released w/o Limitations [place] [facility] [place] [facility]) OUTPATIENT [id number] BRAULIO ZAPATA 07/01 Released w/o Limitations [place] [facility] [place] [facility]) OUTPATIENT [id number] BRAULIO ZAPATA 07/03 Released w/o Limitations [place] [place] [facility]) OUTPATIENT [id number] KWAME ZARATE 07/18 Released w/o Limitations [place] [facility]) [place] [facility]) OUTPATIENT [id number] BRAULIO ZAPATA 07/22 Released w/o Limitations [place]) [place] ([facility]) OUTPATIENT [id number] BRAULIO ZAPATA 07/24 Released w/o Limitations [place]) [place] ([facility] ([facility] OUTPATIENT [id number] Notes Entered by: JOSEE BRAGA 28 Jul 2012 1248 ------- ------- ------- ------- -- sebastianen JAMAL Campbell 07/28 Released w/o Limitations [place] [place] ([facility]) OUTPATIENT [id number] GEORGE VEGA JR 07/29 Released w/o Limitations [place]) [place] ([facility]) OUTPATIENT [id number] GEORGE VEGA JR 07/31 Released w/o Limitations [place] [facility]) [facility] [place]) OUTPATIENT [id number] BRAULIO ZAPATA 08/05 Released w/o Limitations [place] [facility]) [facility]) OUTPATIENT [id number] BRAULIO ZAPATA 08/07 Released w/o Limitations [place]) [place] [facility] OUTPATIENT [id number] Notes Entered by: JOSEE BRAGA 13 Aug 2012 1007 ------- ------- ------- ------- -- HPV Vaccine JAMAL ALMONTE 08/13 Released w/o Limitations [place] [place]) OUTPATIENT [id number] KWAME ZARATE 08/18 Released w/o Limitations [place]) [place] [facility] OUTPATIENT [id number] follow up MAINE GRANT 08/19 Released w/o Limitations [place] [place] (Orthoped ic Clinic) OUTPATIENT [id number] LALY RODRIGUEZ 08/28 Released with Work/Duty Limitations [place]([facility]) [place] (Orthoped ic Clinic) OUTPATIENT [id number] mri results ROSANGELALALY KENT Ne 10/02 Released w/o Limitations [place] [facility]) [place] ([facility] ([facility])) TELE CONSULT [id number] ROSARODYEdith MARLOWN 10/17 [place]([facility] ([facility])) [place] (Occupati onal Health [facility]) OUTPATIENT [id number] [address]/mwr/ HILDA Carlton 02/11 Released w/o Limitations [place]([facility]u [facility]a l [facility]) [place] ([facility]al [facility]) OUTPATIENT [id number] [address] preempl oyment/ ready for m.o. TSERING ESTEVEZ 02/17 Released w/o Limitations [place]([facility]a l [facility]) [place] [facility] ([facility])) OUTPATIENT [id number] MAINE HARDWICK 04/10 Released w/o Limitations [place]([facility] ([facility])) [place] (Optomet[facility] y [facility]) OUTPATIENT [id number] annual eye exam AKIL CRUZ 04/17 Released w/o Limitations [place]([facility]o [facility]) [place] ([facility]) OUTPATIENT [id number] discuss LASEK surgery AKIL CRUZ 04/24 Released w/o Limitations [place]([facility]) [place] (Immuniza tion ([facility])) OUTPATIENT [id number] Notes Entered by: SERINA NAPIER 03 Jun 2013 1736 ------- ------- ------- ------- -- JAMAL Lopez 06/03 Released w/o Limitations [place](Immu nizatio n ([facility])) [place] [facility] OUTPATIENT [id number] Notes Entered by: ZENAIDA ALMONTE 20 Jul 2013 1551 ------- ------- ------- ------- -- OC Medical Screeni ng Form JAMAL ALMONTE 07/20 Released w/o Limitations [place] [place] [facility] OUTPATIENT [id number] Notes Entered by: JOSEE BRAGA 28 Aug 2013 1331 ------- ------- ------- ------- -- derm on left hand JOVI ANDRADE 08/28 Released w/o Limitations [place] [place] [facility] OUTPATIENT [id number] follow up JOVI ANDRADE 09/10 Released w/o Limitations [place] [place] [facility] OUTPATIENT [id number] f/u MAINE GRANT A 09/18 Released w/o Limitations [place] [place] [facility] OUTPATIENT [id number] follow up MAINE GRANT A 10/19 Released w/o Limitations [place] [place] [facility] OUTPATIENT [id number] Follow up STACIA SHEN 10/26 Released w/o Limitations [place] [place] OUTPATIENT [id number] [facility] and medical loreto ce for [facility] MAINE GRANT A 01/22 Released w/o Limitations [place] [employer](Alc ABG In and Out Processin g) TELE CONSULT [id number] Notes Entered by: Arturo VELIZ 14 Jun 2014 1442 ------- ------- ------- ------- -- In Process ing PATO VELIZ 06/14 [employer](A lc ABG In and Out Process ing) [employer]([facility] Team A) OUTPATIENT [id number] Back Pain JANAK WOODSON 10/12 Released w/o Limitations [employer](A [facility] Team A) [employer]([facility]) OUTPATIENT [id number] REE glasses JANAK MOTT 10/27 Released w/o Limitations [employer]([facility]) [employer]([facility] Team A) TELE CONSULT [id number] Notes Entered by: VANCE RICHARDS 18 Jan 2015 1032 ------- ------- ------- ------- -- MINH Quinn 01/18 [employer](A [facility] Team A) [employer]([facility] Team A) OUTPATIENT [id number] TONIO Miranda 01/28 Released w/o Limitations [employer](A [facility] Team A) [employer]([facility] Team A) OUTPATIENT [id number] [facility] Physica JANAK Gonzales 02/03 Released w/o Limitations [employer](A [facility] Team A) [employer](ZZZ [facility]cirlik_F HC_Team A) OUTPATIENT [id number] headach e and dizzine ss GARHAM YING 08/31 Released w/o Limitations [employer](Z ZZNcirl ik_[facility]_ Team A) [employer](ZZZ [employer]_F HC_Team A) OUTPATIENT [id number] f/u concuss ion GRAHAM YING 09/05 Released w/o Limitations [employer](Z ZZNcirl ik_[facility]_ Team A) [employer](ZZZ [employer]_F HC_Team A) OUTPATIENT [id number] F/u concuss ion DEONNA GRAHAM Arturo 09/07 Released w/o Limitations [employer](Z ZZNcirl [facility]_ Team A) [employer]([facility]) OUTPATIENT [id number] Notes Entered by: ERIKA SLAUGHTER 04 Oct 2015 1542 ------- ------- ------- ------- -- Post Deploym ent In-proc essing ANGUS JEROME 10/04 Released w/o Limitations [employer](A [facility]) [employer]([facility] Team A) OUTPATIENT [id number] Notes Entered by: BIA LAW 27 Jan 2016 0857 ------- ------- ------- ------- -- Sore throat SHANTHI DIOP 01/26 Released w/o Limitations [employer](A [facility] Team A) [employer]([facility] Team A) OUTPATIENT [id number] Knee pain FATUMA CAICEDO 01/26 Released w/o Limitations [employer](A [facility] Team A) [employer]([facility] Team A) OUTPATIENT [id number] back pain OWENHILARY Ne 01/30 Released with Work/Duty Limitations [employer](A [facility] Team A) [employer]([facility] Team A) TELE CONSULT [id number] Notes Entered by: Isamar HENRY 10 Feb 2016 1610 ------- ------- ------- ------- -- MINH Martinez 02/09 [employer](A [facility] Team A) [employer]([facility] Team A) OUTPATIENT [id number] OMT-Jimi k FATUMA CAICEDO 02/12 Released w/o Limitations [employer](A [facility] Team A) [employer]([facility] Team A) OUTPATIENT [id number] Sleep medicat ion concern FATUMA CAICEDO Toibn 02/21 Released w/o Limitations [employer](A [facility] Team A) [employer]([facility] Team A) OUTPATIENT [id number] BFA MARIFER FATUMA Tobin 02/27 Released w/o Limitations [employer](A [facility] Team A) [employer]([facility] Team A) OUTPATIENT [id number] Sleep concern f/u MARIFERFATUMA Tobin 03/02 Released w/o Limitations [employer](A [facility] Team A) [employer]([facility]) OUTPATIENT [id number] eye exam with glasses ANDRES AZAR 03/07 Released w/o Limitations [employer]( [facility]) [employer]([facility] Team A) TELE CONSULT [id number] Notes Entered by: Lore ALVARADO 14 Mar 2016 0838 ------- ------- ------- ------- -- MARCELLA Szymanski 03/14 [employer](A [facility] Team A) [employer]([facility] Team A) OUTPATIENT [id number] f/u zoloft medicat ion MARIFERFATUMA Tobin 03/20 Released w/o Limitations [employer](A [facility] Team A) [employer]([facility] Team A) TELE CONSULT [id number] Notes Entered by: Brooke ALONZO 29 Mar 2016 1146 ------- ------- ------- ------- -- NETWORK RESULT - PHYSIO MARIFER FATUMA Tobin 03/29 [employer](A [facility] Team A) [employer]([facility]) OUTPATIENT [id number] CRS Workup PRAMOD BOX 03/30 Released w/o Limitations [employer]([facility]) [employer]([facility] Team A) OUTPATIENT [id number] Zoloft f/u MARIFER FATUMA C 04/02 Released w/o Limitations [employer](A [facility] Team A) [facility] Team A) TELE CONSULT [id number] Notes Entered by: JESUS CAICEDO 06 Apr 2016 1015 ------- ------- ------- ------- -- Vitamin D FATUMA CAICEDO 04/06 [employer](A [facility] Team A) [facility] Team A) OUTPATIENT [id number] Zoloft f/u FATUMA CAICEDO 04/10 Released w/o Limitations [employer](A [facility] Team A) [facility] Optometry Clinic) TELE CONSULT [id number] Notes Entered by: Tobin ZIMMERMAN 12 Apr 2016 0740 ------- ------- ------- ------- -- [facility] ANDRES AZAR 04/12 [facility] Optomet ry [facility]) [facility] Ophthalmo logy) OUTPATIENT [id number] PT contact ed about kun berkowitz receipt , packet sent EDDIE HERZOG 04/17 Released w/o Limitations [facility] Ophthal mology) [facility] Team A) TELE CONSULT [id number] Notes Entered by: Brooke ALONZO 02 May 2016 1043 ------- ------- ------- ------- -- Referra HALEIGH Morgan 05/02 [facility] Team A) [facility] Team A) TELE CONSULT [id number] Notes Entered by: FERNANDO GANN 04 May 2016 1044 ------- ------- ------- ------- -- Network Result- Physio [id number] FATUMA CAICEDO 05/04 [facility] Team A) [employer]([facility] Team A) TELE CONSULT [id number] Notes Entered by: FERNANDO GANN 24 May 2016 1430 ------- ------- ------- ------- -- Network Result- Physica l Therapy [id number] KEYANA GASTELUM 05/24 [employer](A [facility] Team A) [employer]([facility] Team A) TELE CONSULT [id number] Notes Entered by: Brooke ALONZO 10 Jul 2016 1637 ------- ------- ------- ------- -- HALEIGH Lorenzo 07/10 [employer](A [facility] Team A) [facility] Team A) OUTPATIENT [id number] f/u back pain FATUMA CAICEDO 07/11 Released w/o Limitations [employer](A [facility] Team A) [facility] Team A) TELE CONSULT [id number] Notes Entered by: JESUS CAICEDO 15 Aug 2016 1653 ------- ------- ------- ------- -- Normal vitamin D SERAFIN REEDER 08/15 [facility] Team A) [facility] Op[facility]mo logy) OUTPATIENT [id number] Initial Consult -INDER Healy 08/21 Released w/o Limitations [facility]) [facility]) OUTPATIENT [id number] Brief INDER VARGAS 08/22 Released w/o Limitations [facility]) OUTPATIENT [id number] Consent INDER VARGAS 08/23 Released with Work/Duty Limitations [facility] OUTPATIENT [id number] week PO INDER VARGAS 08/28 Released w/o Limitations [facility] Op[facility] m[facility]) [employer]([facility]) OUTPATIENT [id number] 1 Month PRK Post-Op /Non- Fly ANDRES AZAR W 09/25 Released w/o Limitations [employer] [employer]([facility]) OUTPATIENT [id number] Month PRK Post-Op / Non-Fly ANDRES AZAR W 11/15 Released w/o Limitations [employer] [employer]([facility] Team A) OUTPATIENT [id number] Notes Entered by: FERNANDO GANN 16 Nov 2016 1433 ------- ------- ------- ------- -- strep test HALEIGH CENTENO 11/16 Released w/o Limitations [employer]([facility] Team A) [employer]([facility] Team A) OUTPATIENT [id number] Right Wrist pain FATUMA CAICEDO C 12/10 Released with Work/Duty Limitations [employer]([facility] Team A) [employer]([facility] Team A) [facility] [id number] [facility]PH[facility] FATUAM CAICEDO C 01/23 Released w/o Limitations [employer]([facility] Team A) [employer]([facility] Team A) OUTPATIENT [id number] Pain in ribs FATUMA CAICEDO C 01/29 Released w/o Limitations [employer]([facility] Team A) [employer]([facility]) OUTPATIENT [id number] PRK 6-month f/u ANDRES AZAR W 03/07 Released w/o Limitations [employer] Team M) OUTPATIENT [id number] Notes Entered by: GÓMEZ HOLLIDAY 20 Jun 2017 0811 ------- ------- ------- ------- -- Walk In--Str ep KAMILAH Messer 06/20 Released w/o Limitations [facility] Team M) [facility] Team M) OUTPATIENT [id number] shan vogelJUAN Solomon 07/03 Released w/o Limitations [facility] Team M) [facility] Team M) OUTPATIENT [id number] physica l for november LIZ HAQ 10/08 Released w/o Limitations [facility] Team M) [facility] Team M) OUTPATIENT [id number] check up LIZ HAQ 01/07 Released w/o Limitations [facility] Team M) [facility] Team M) TELE CONSULT [id number] Notes Entered by: LIZ HAQ 14 Jan 2018 1354 ------- ------- ------- ------- -- ANITA Ashley 01/14 [facility] Team M) [facility] Team M) OUTPATIENT [id number] Notes Entered by: SRINI GOMES 05 Feb 2018 0848 ------- ------- ------- ------- -- walk in - [facility] LIZ HAQ 02/05 Released w/o Limitations [facility] Team M) [facility] Team M) OUTPATIENT [id number] Notes Entered by: ARGENIS LANDA 12 Feb 2018 0939 ------- ------- ------- ------- -- Annual [facility] LIZ HAQ 02/12 Released w/o Limitations [facility] Team M) [facility] Team M) OUTPATIENT [id number] knee/fo ot pain LEUNGMALOU TAPIAHAN T 03/24 Released w/o Limitations [facility] Team M) [facility] Team M) TELE CONSULT [id number] LUCA CANTOR 03/26 [facility] Team M) [facility] Aeromedic al Clinic) OUTPATIENT [id number] bad itching feet YELENA TSILL Mariia 04/03 Released w/o Limitations [facility] Aeromed ical Clinic) [facility] Team M) OUTPATIENT [id number] LIZ Yepez 04/14 Released w/o Limitations [facility] Team M) [facility] Team M) TELE CONSULT [id number] Notes Entered by: Brooke PINEDA 30 Apr 2018 0835 ------- ------- ------- ------- -- Request from ANITA Morales 04/30 [facility] Team M) [facility] Team M) OUTPATIENT [id number] Notes Entered by: MASOUD ADRIAN 12 May 2018 0939 ------- ------- ------- ------- -- Walk in Left wrist injury CHALINO LYONS 05/12 Released w/o Limitations [facility] Team M) [facility] Team M) OUTPATIENT [id number] L thumb injury LEUNGMALOU TAPIARHIANNA Fernandez 05/15 Released w/o Limitations [facility] Team M) [facility] Team M) TELE CONSULT [id number] Notes Entered by: MICHELLE VELASCO 19 May 2018 1413 ------- ------- ------- ------- -- LUCA Guerrero 05/19 [facility] Team M) [facility] Team M) OUTPATIENT [id number] AUoF Left MARY Owusu 06/17 Released w/o Limitations [facility] Team M) [facility] Team M) TELE CONSULT [id number] Notes Entered by: MIGUEL ÁNGEL PABLO 23 Jun 2018 1339 ------- ------- ------- ------- -- NETWORK RESULTS - Orthope dics YOUNG RUIZ 06/23 [facility] Team M) [facility] Team M) OUTPATIENT [id number] Notes Entered by: MASOUD ADRIAN 24 Jun 2018 1304 ------- ------- ------- ------- -- AUoF Walk in Shan bowden MINH NOBLE 06/24 Released w/o Limitations [facility] Team M) [facility] Team M) TELE CONSULT [id number] Notes Entered by: MIGUEL ÁGNEL PABLO 30 Jul 2018 1034 ------- ------- ------- ------- -- NETWORK RESULTS - Urology YOUNG RUIZ 07/30 [facility] Team M) [facility] Team M) TELE CONSULT [id number] Notes Entered by: MASOUD ADRIAN 06 Aug 2018 1614 ------- ------- ------- ------- -- Lab results SIMONE SIGRID R 08/06 [facility] Team M) [facility] Team M) TELE CONSULT [id number] Notes Entered by: MIGUEL ÁNGEL PABLO 07 Aug 2018 1414 ------- ------- ------- ------- -- NETWORK RESULTS - Physica l Therapy LIZ RIVAS 08/07 [facility] Team M) [facility] Team M) OUTPATIENT [id number] rib pain LIZ HAQ 08/19 Released w/o Limitations [facility] Team M) [facility] Team M) TELE CONSULT [id number] Notes Entered by: MICHELLE VELASCO 19 Aug 2018 1558 ------- ------- ------- ------- -- LUCA Guerrero 08/19 [facility] Team M) [facility] Team M) OUTPATIENT [id number] julieth cosby AUBREY G 09/18 Released w/o Limitations [facility] Team M) [facility] Team M) TELE CONSULT [id number] Notes Entered by: MIGUEL ÁNGEL PABLO 29 Sep 2018 0942 ------- ------- ------- ------- -- NETWORK RESULTS - Physica l Therapy 018 LIZ HAQ 09/29 [facility] Team M) [facility] Team M) TELE CONSULT [id number] Notes Entered by: MIGUEL ÁNGEL PABLO 19 Nov 2018 1248 ------- ------- ------- ------- -- NETWORK RESULTS - Physica l Therapy 018 JUAN LEUNG T 11/19 [facility] Team M) [facility] Team M) TELE CONSULT [id number] Notes Entered by: MIGUEL ÁNGEL PABLO 19 Nov 2018 1250 ------- ------- ------- ------- -- NETWORK RESULTS - Physica l Therapy JUAN AGRZA 11/19 [facility] Team M) [facility] Team M) OUTPATIENT [id number] Head aches JUAN LEUNG 12/11 Released w/o Limitations [facility] Team M) [facility] Team M) OUTPATIENT [id number] 5 left pinky finger pain LIZ HAQ 01/20 Released w/o Limitations [facility] Team M) [facility] Team M) TELE CONSULT [id number] Notes Entered by: Edith NIX 26 Jan 2019 0911 ------- ------- ------- ------- -- AMNA Ferrera 01/26 [facility] Team M) [facility] Team M) OUTPATIENT [id number] multipl e muscle issues LIZ HAQ 01/26 Released w/o Limitations [facility] Team M) [facility] Team M) OUTPATIENT [id number] Notes Entered by: SINA STACY 30 Jan 2019 1020 ------- ------- ------- ------- -- ANNUAL PHA LIZ HAQ 01/30 Released w/o Limitations [facility] Team M) [facility] Team M) TELE CONSULT [id number] Notes Entered by: LIZ HAQ 17 Feb 2019 0917 ------- ------- ------- ------- -- MRI LUCA Cotton 02/17 [facility] Team M) [facility] Team M) OUTPATIENT [id number] virtual appt clearif shayy obrien regardi ng past appts LIZ HAQ 02/18 Released with Work/Duty Limitations [facility] Team M) [facility] Team M) OUTPATIENT [id number] virtual apt per PCM LIZ HAQ 02/26 Released with Work/Duty Limitations [facility] Team M) [facility] Team M) TELE CONSULT [id number] Notes Entered by: Isamar MCKEE 27 Feb 2019 1027 ------- ------- ------- ------- -- Med concern s, gap AMNA Khan 02/27 [facility] Team M) [facility] Team M) OUTPATIENT [id number] 5 f/u virtual apt LIZ HAQ 03/09 Released with Work/Duty Limitations [facility] Team M) [facility] Aeromedic al Clinic) OUTPATIENT [id number] YOUNG Mills 03/16 Released w/o Limitations [facility] Aeromed ical Clinic) [facility]) OUTPATIENT [id number] 6 Chest pain, unspeci fied/GE ILENJOSEP DELGADO, SHADIA ISIDRO 03/18 Released w/o Limitations [facility]) [facility] Team M) TELE CONSULT [id number] Notes Entered by: MIGUEL ÁNGEL PABLO 23 Mar 2019 0958 ------- ------- ------- ------- -- NETWORK RESULTS - ENT 019 LIZ HAQ 03/23 [facility] Team M) [facility] Team M) TELE CONSULT [id number] Notes Entered by: MIGUEL ÁNGEL PABLO 23 Mar 2019 1140 ------- ------- ------- ------- -- NETWORK RESULTS - Radiolo gy 019 LIZ HAQ 03/23 [facility] Team M) [facility] Team M) OUTPATIENT [id number] virtual f/u LIZ HAQ 03/24 Released w/o Limitations [facility] Team M) [facility] Team M) OUTPATIENT [id number] virtual appt f/u LIZ HAQ 03/31 Released w/o Limitations [facility] Team M) [facility]) OUTPATIENT [id number] 1 f/u TeleHea lth/Gei sam DELGADO, SHADIA ISIDRO 04/21 Released w/o Limitations [facility]) [facility] Team M) OUTPATIENT [id number] Notes Entered by: ELROY VIVAS 22 Apr 2019 1443 ------- ------- ------- ------- -- [facility] Appoint ment with [facility]: Pain clinic AMNA WEST 04/22 Released w/o Limitations [facility] Team M) [facility]) OUTPATIENT [id number] left shoulde r 2nd opinion has off base surg MAY 19 YELENA MCFADDEN 05/06 Released w/o Limitations [facility]) [facility] Team M) TELE CONSULT [id number] 1 Notes Entered by: MIGUEL ÁNGEL PABLO 08 May 2019 1054 ------- ------- ------- ------- -- MTF RESULTS - [facility] 019, LIZ YATES 05/08 [facility] Team M) [facility] Team M) OUTPATIENT [id number] 9 chest pain LIZ HAQ 05/11 Released w/o Limitations [facility] Team M) [facility] Team M) TELE CONSULT [id number] Notes Entered by: MICHELLE VELASCO 12 May 2019 1019 ------- ------- ------- ------- -- LUCA Guerrero 05/12 [facility] Team M) [facility] Team M) TELE CONSULT [id number] 8 Notes Entered by: MIGUEL ÁNGEL PABLO 19 May 2019 1210 ------- ------- ------- ------- -- NETWORK RESULTS - Orthope dics LIZ YATES 05/19 [facility] Team M) [facility] Team M) OUTPATIENT [id number] surgery follow up JUAN LEUNG 05/20 Released w/o Limitations [facility] Team M) [facility] Team M) OUTPATIENT [id number] 5 Notes Entered by: VICKI LOZANO 01 Jun 2019 1049 ------- ------- ------- ------- -- suture removal ELAINE LORA 06/01 Released w/o Limitations [facility] Team M) [facility] Team M) TELE CONSULT [id number] Notes Entered by: MIGUEL ÁNGEL PABLO 05 Jun 2019 1109 ------- ------- ------- ------- -- NETWORK RESULTS - Orthope dics 019 LIZ HAQ 06/05 [facility] Team M) [facility] Team M) OUTPATIENT [id number] 4 f/u chest pain LIZ HAQ 06/08 Released w/o Limitations [facility] Team M) [facility] Team M) OUTPATIENT [id number] Notes Entered by: JERMAIN GREENBERG 16 Jun 2019 0842 ------- ------- ------- ------- -- walk in [facility] JUAN Baker 06/16 Released w/o Limitations [facility] Team M) [facility] Team M) OUTPATIENT [id number] stomach problem s CHALINO LYONS 07/16 Released w/o Limitations [facility] Team M) [facility] Team M) TELE CONSULT [id number] 6 Notes Entered by: MIGUEL ÁNGEL PABLO 26 Aug 2019 1253 ------- ------- ------- ------- -- NETWORK RESULTS - Physica l Therapy 019 JUAN LEUNG 08/26 [facility] Team M) [facility] Team M) OUTPATIENT [id number] right foot pain, left shoulde r pain (contin ue PT) LIZ HAQ 09/29 Released w/o Limitations [facility] Team M) [facility] Team M) OUTPATIENT [id number] rip pain LIZ HAQ 10/27 Released w/o Limitations [facility] Team M) [facility] Team M) OUTPATIENT [id number] 9 Notes Entered by: KASIA HAUSER 18 Nov 2019 0836 ------- ------- ------- ------- -- walk in-stre KAMILAH Reina 11/18 Released w/o Limitations [facility] Team M) [facility] Team M) OUTPATIENT [id number] 1 rib pain LIZ HAQ 11/24 Released w/o Limitations [facility] Team M) [facility] Team M) OUTPATIENT [id number] virtual f/u [id number] LIZ HAQ 11/26 Released w/o Limitations [facility] Team M) [facility] Team M) TELE CONSULT [id number] 5 Notes Entered by: MIGUEL ÁNGEL PABLO 11 Dec 2019 0945 ------- ------- ------- ------- -- NETWORK RESULTS - Radiolo gy 020 LIZ HAQ 12/10 [facility] Team M) [facility] Mental Health) TELE CONSULT [id number] Notes Entered by: Brooke PINON 11 Jan 2020 0914 ------- ------- ------- ------- -- PrioriKEIRA Heath 01/10 [facility] Mental Health) [facility] Mental Health) OUTPATIENT [id number] Notes Entered by: KEIRA BENITES 12 Jan 2020 1555 ------- ------- ------- ------- -- KEIRA KITCHEN 01/11 Released w/o Limitations [facility] Mental Health) [facility] Team M) TELE CONSULT [id number] Notes Entered by: MIGUEL ÁNGEL PABLO 18 Jan 2020 1230 ------- ------- ------- ------- -- NETWORK RESULTS - Physico l Therapy 020 LIZ HAQ 01/17 [facility] Team M) [facility] Team M) OUTPATIENT [id number] 2 f/u pain mangeme nt LIZ HAQ 02/17 Released with Work/Duty Limitations [facility] Team M) [facility] Team M) OUTPATIENT [id number] virtual med f/u [id number] YOUNG ANDRADE 02/22 Released w/o Limitations [facility] Team M) [facility] Team M) OUTPATIENT [id number] Notes Entered by: SINA STACY 07 Mar 2020 0855 ------- ------- ------- ------- -- ANNUAL PHA YOUNG ANDRADE 03/07 Released w/o Limitations [facility] Team M) [facility] Aeromedic al Clinic) TELE CONSULT [id number] Notes Entered by: LALY RAMEY 09 Mar 2020 1601 ------- ------- ------- ------- -- Medical YOUNG Edwards 03/09 [facility] Aeromed ical Clinic) [facility] Team M) TELE CONSULT [id number] Notes Entered by: VICKI LOZANO 15 Apr 2020 0835 ------- ------- ------- ------- -- Allergy concern s/no appoint AMNA Villavicencio 04/15 [facility] Team M) [facility] Team M) TELE CONSULT [id number] 6 Notes Entered by: MIGUEL ÁNGEL PABLO 25 Apr 2020 1022 ------- ------- ------- ------- -- NETWORK RESULTS - Anesthe siology 019 JUAN LEUNG 04/25 [facility] Team M) [facility] Team M) OUTPATIENT [id number] right wrist pain, poss xrays AARON PUGA 05/23 Released w/o Limitations [facility] Team M) [facility] Team M) TELE CONSULT [id number] Notes Entered by: MIGUEL ÁNGEL PABLO 10 Jun 2020 0915 ------- ------- ------- ------- -- NETWORK RESULTS - Physica l Therapy 05/28/[address] [facility] 06/10 [facility] Team M) [facility] Aeromedic al Clinic) TELE CONSULT [id number] 5 Notes Entered by: LALY RAMEY 01 Jul 2020 1037 ------- ------- ------- ------- -- YOUNG Wallace 07/01 [facility] Aeromed ical Clinic) [facility] Team M) TELE CONSULT [id number] Notes Entered by: MIGUEL ÁNGEL PABLO 29 Jul 2020 1019 ------- ------- ------- ------- -- NETWORK RESULTS - Physica l Therapy [address] [facility] 07/29 [facility] Team M) [facility] Team M) TELE CONSULT [id number] Notes Entered by: VIK GALLO 22 Feb 2021 0828 ------- ------- ------- ------- -- Rx JOHNNIE Christianson 02/22 [facility] Team M) [facility] Team M) TELE CONSULT [id number] 0 Notes Entered by: Brooke PINON 01 Mar 2021 0930 ------- ------- ------- ------- -- JOHNNIE Luo 03/01 [facility] Team M) [facility] Social Work) OUTPATIENT [id number] KEIRA Turner 03/02 Released w/o Limitations [facility] Social Work) [facility] Team M) OUTPATIENT [id number] Notes Entered by: YADIAR YUEN 02 Mar 2021 1420 ------- ------- ------- ------- -- ANNUAL PHA. AARON PUGA 03/02 Released w/o Limitations [facility] Team M) [facility] Team M) OUTPATIENT [id number] shaving waiver renewal , already AARON PUGA 03/15 Released w/o Limitations [facility] Team M) [facility] Team M) OUTPATIENT [id number] rib pain AARON PUGA 03/27 Released w/o Limitations [facility] Team M) [facility] Team M) TELE CONSULT [id number] 8 Notes Entered by: JERMAIN GREENBERG 14 Apr 2021 0824 ------- ------- ------- ------- -- triage - no acute appts availab JOHNNIE Caceres 04/14 [facility] Team M) [facility] Team M) OUTPATIENT [id number] jaw pain AARON PUGA 04/14 Released w/o Limitations [facility] Team M) [facility] Medical Group [facility] ([facility])(Aud iology Procedure s) OUTPATIENT [id number] Notes Entered by: ALDEN PATEL 29 Nov 2021 0829 ------- ------- ------- ------- -- ALDEN EDWARDS 11/29 Released w/o Limitations [facility] ([facility])(A udiolog y Procedu res) [facility])(War rior Op Med Cln Tm A Ad) TELE CONSULT [id number] Notes Entered by: ELIJAH HIRSCH 29 Jan 2022 1448 ------- ------- ------- ------- -- Sx: Swollen , hard bump on right hand - Darrin - - tsg* LEE DALAL 01/29 Referred for Appointment [address] [place] [address] [facility])(W arrior Op Med Cln Tm A Ad) [address] [place] [address] [facility])(War rior Op Med Cln Tm A Ad) TELE CONSULT [id number] 5 Notes Entered by: NAEEM NOLASCO 05 Feb 2022 0920 ------- ------- ------- ------- -- Ortho F/U- [facility] F/[place]-SX- Painful Ganglio n Cyst R Cyst Wrist/ Darrin / LEE DALAL 02/05 Immediate Referral [address] [place] [address] [facility])(W arrior Op Med Cln Tm A Ad) [address] [place] [address] [facility])(War rior Op Med Cln Tm A Ad) TELE CONSULT [id number] Notes Entered by: KWAME SMITH 25 Apr 2022 1416 ------- ------- ------- ------- -- Network results [facility] 022 WILBER GALEANO 04/[address] [place] [address] [facility])(W arrior Op Med Cln Tm A Ad) [address] [place] [address] [facility])(Bas e Operation al Medicine Clin) OUTPATIENT [id number] Notes Entered by: Arturo GIORDANO 18 Jun 2022 0906 ------- ------- ------- ------- -- Re-LENIN Galvez 06/18 Released w/o Limitations [address] [place] [address] [facility])(B ase Operati onal Medicin e Clin) [address] [place] [address] [facility])(Sco tt Flight Medicine Tm) OUTPATIENT [id number] Retrain Loreto ce - DQ JAY LIND 06/18 Released w/o Limitations [facility] Medical Group [facility])(S cott Flight Medicin e Tm) [facility])(War rior Op Med Cln Tm A Ad) OUTPATIENT [id number] BODY SHAKES AND REFERRA LS STACY ORO 07/11 Released w/o Limitations [address] [place] [address] Group [facility])(W arrior Op Med Cln Tm A Ad) [facility])(War rior Op Med Cln Tm A Ad) OUTPATIENT [id number]//L Foot pain//6 [phone] SHAHEENALIREZABRIDGETTE MOREVale Olivia 07/19 Released w/o Limitations [address] [place] [address] Group [facility])(W arrior Op Med Cln Tm A Ad) [facility])(War rior Op Med Cln Tm A Ad) TELE CONSULT [id number] Notes Entered by: STACY ORO 19 Jul 2022 [id number] ------- ------- ------- ------- -- Results STACY ORO 07/19 Released to Self Care [address] [place] [address] Group [facility])(W arrior Op Med Cln Tm A Ad) [address] [place] [address] [facility])(War rior Op Med Cln Tm A Ad) TELE CONSULT [id number] Notes Entered by: STACY ORO 12 Aug 20222036 ------- ------- ------- ------- -- Lab follow up/endo crinolo gy STACY Yin 08/13 Referred for Appointment [address] [place] [address] Group [facility])(W arrior Op Med Cln Tm A Ad) [address] [place] [address])(War rior Op Med Cln Tm A Ad) TELE CONSULT [id number] 6 Notes Entered by: Ne JALLOH 09 Oct 2022 1054 ------- ------- ------- ------- -- Waiting Provide r Call Back/Si phillip/Donell [phone] CASEY HERNANDEZ 10/09 Referred for Appointment [facility])(W arrior Op Med Cln Tm A Ad) [facility])(War rior Op Med Cln Tm A Ad) TELE CONSULT [id number] 7 Notes Entered by: RASHIDA MAGALLON 10 Oct 2022 1027 ------- ------- ------- ------- -- Exposur e//Simm ons ARSHIDA MAGALLON 10/10 Other Not Elsewhere Classified [address] [place] [address] Group [facility])(W arrior Op Med Cln Tm A Ad) [address] [place] [address] Group [facility])(Sco [facility] Res Tm Green) TELE CONSULT [id number] 2 Notes Entered by: Lore BURKETT 10 Oct 2022 1339 ------- ------- ------- ------- -- Network results Endocri nology 023 STACY TEJEDA 10/10 Released to Self Care [address] [place] [address] [facility])([facility] Res Green) [address] [place] [address] Group [facility])( rior Op Med Cln Tm A Ad) TELE CONSULT [id number] 5 Notes Entered by: Ne JALLOH 11 Oct 2022 1227 ------- ------- ------- ------- -- Referra l Endocri nology Appt Sep/Yohannes lyman/Porter 0.853.2 338 CASEY HERNANDEZ 10/11 Referred for Appointment [facility] Group [facility])(W arrior Op Med Cln Tm A Ad) [address] [place] [address])(War rior Op Med Cln Tm A Ad) TELE CONSULT [id number] 5 Notes Entered by: NAEEM NOLASCO 12 Oct 2022 1307 ------- ------- ------- ------- -- SX- R Eye Bump near Cornea / Thomson / CASEY HERNANDEZ 10/12 Referred for Appointment [address] [place] [address])(W arrior Op Med Cln Tm A Ad) [address] [place] [address])(War rior Op Med Cln Tm A Ad) OUTPATIENT [id number] 8 FTF BUMP ON EYE, CHEM EXPOSUR E WILBER JIMENEZ 10/18 Released w/o Limitations [address] [place] [address])(W arrior Op Med Cln Tm A Ad) [address] [place] [address])(Uti lization Managemen t) TELE CONSULT [id number] 7 Notes Entered by: IZAIAH WANG 18 Oct 2022 1608 ------- ------- ------- ------- -- STAT Referra l non-net work-En do IZAIAH WANG 10/18 Other Not Elsewhere Classified [address] [place] [address])(U tilizat ion Managem ent) [address] [place] [address])(War rior Op Med Cln Tm A Ad) TELE CONSULT [id number] 6 Notes Entered by: MARIO MARK 25 Oct 2022 1026 ------- ------- ------- ------- -- STAT Referra l Request [phone] (CASEY Decker 10/25 Other Not Elsewhere Classified [address] [place] [address])(W arrior Op Med Cln Tm A Ad) [address] [place] [address])(Bas e Operation al Medicine Clin) OUTPATIENT [id number] [facility] . LENIN GIORDANO 11/01 Released w/o Limitations [address] [place] [address])(B ase Operati onal Medicin e Clin) [address] [place] [address])(War rior Op Med Cln Tm A Ad) TELE CONSULT [id number] 2 Notes Entered by: NIURKA HERNANDEZ 02 Nov 2022 0930 ------- ------- ------- ------- -- Con leave form NIURKA HERNANDEZ 11/02 Other Not Elsewhere Classified [address] [place] [address])(W arrior Op Med Cln Tm A Ad) [address] [place] [address])(Dep [facility] Health Assessmen ts) OUTPATIENT [id number] DRHA1/Q FEBRUARY 12/135 DAYS ALFREDA PALACIOS 11/05 Released w/o Limitations [address] [place] [address])(D [facility] Health Assess ents) [address] [place] [address])(War rior Op Med Cln Tm A Ad) TELE CONSULT [id number] 5 Notes Entered by: REGINA REEVES 08 Nov 2022 1514 ------- ------- ------- ------- -- Network results Endocri nology 10/31-11/01 SHANTHI YATES 11/[address] [place] [address])(W arrior Op Med Cln Tm A Ad) [address] [place] [address])(War rior Op Med Cln Tm A Ad) TELE CONSULT [id number] 3 Notes Entered by: RHIANNA CURRIE 13 Nov 2022 1313 ------- ------- ------- ------- -- Network review PATO THOMSON 11/[address] [place] [address])(W arrior Op Med Cln Tm A Ad) [address] [place] [address])(War rior Op Med Cln Tm A Ad) TELE CONSULT [id number] 7 Notes Entered by: NAEEM NOLASCO 13 Nov 2022 1522 ------- ------- ------- ------- -- Con-Tea Snell on - Med Dosage Change Notes Inquiry / Berto / LEE DALAL 11/13 Released to Self Care [address] [place] [address])(W arrior Op Med Cln Tm A Ad) [address] [place] [address])(Aud iology Procedure s) OUTPATIENT [id number] Notes Entered by: Claixto SANTOS 14 Nov 2022 0853 ------- ------- ------- ------- -- ANNUAL HCP SFS ARIN SANTOS 11/14 Released w/o Limitations [address] [place] [address])(A udiolog y Procedu res) [address] [place] [address])(War rior Op Med Cln Tm A Ad) TELE CONSULT [id number] 7 Notes Entered by: Ne JALLOH 04 Dec 2022 1525 ------- ------- ------- ------- -- Waiver Request [facility] 0.853.2 RASHIDA JERRY 12/04 Other Not Elsewhere Classified [address] [place] [address])(W arrior Op Med Cln Tm A Ad) [address] [place] [address])(War rior Op Med Cln Tm A Ad) TELE CONSULT [id number] Notes Entered by: RHIANNA CURRIE 07 Dec 2022 1552 ------- ------- ------- ------- -- Network review PRANAV NATARAJAN 12/[address] [place] [address])(W arrior Op Med Cln Tm A Ad) [address] [place] [address])(War rior Op Med Cln Tm A Ad) TELE CONSULT [id number] 6 Notes Entered by: YONI LIM 10 Dec 2022 0926 ------- ------- ------- ------- -- Network results Endocri nology 023 and 023 WILBER COTTER 12/[address] [place] [address])(W arrior Op Med Cln Tm A Ad) [address] [place] [address])(War rior Op Med Cln Tm A Ad) TELE CONSULT [id number] 2 Notes Entered by: Ne JALLOH 20 Dec 2022 1426 ------- ------- ------- ------- -- Status of Waiver Appt Leaves December/ Nicolasa baker/630 .[phone] 38 RASHIDA MAGALLON 12/20 Other Not Elsewhere Classified [address] [place] [address])(W arrior Op Med Cln Tm A Ad) [address] [place] [address])(War rior Op Med Cln Tm A Ad) TELE CONSULT [id number] 1 Notes Entered by: JACKSON VALDOVINOS 29 Jan 2023 1505 ------- ------- ------- ------- -- Lab results PRANAV NATARAJAN 01/[address] [place] [address])(W arrior Op Med Cln Tm A Ad) [address] [place] [address])(War rior Op Med Cln Tm A Ad) TELE CONSULT [id number] 1 Notes Entered by: MARIO MARK 31 Jan 2023 1233 ------- ------- ------- ------- -- 04 February Appt Inquiry /[place] rodriguez/63 0.853.2 338 RASHIDA MAGALLON 01/31 Other Not Elsewhere Classified [address] [place] [address] [facility] [place]W arrior Op Med Cln Tm A Ad) [address] [place] [address] [facility])(War rior Op Med Cln Tm A Ad) TELE CONSULT [id number] 5 Notes Entered by: PATO THOMSON 05 Feb 2023 0814 ------- ------- ------- ------- -- Deploym ent Cle[employer] ce PATO THOMSON 02/[address] [place] [address] [facility] [facility])(W arrior Op Med Cln Tm A Ad) Theater Facility OUTPATIENT [id number] Theater Provider 05/25 Released w/o Limitations Theater Facilit y Theater Facility OUTPATIENT [id number] Theater Provider 05/25 Released w/o Limitations Theater Facilit y [facility] [id number] Encount er for adminis trative examina tions, unspeci fied [facility] 01/20 Discharge Disposition: Home or Self Care 0055[facility] Visit [id number] 01/20 Discharge Disposition: Home or Self Care 0055C[facility] 0055[facility] Visit [id number] 01/21 Discharge Disposition: Home or Self Care 0055C[facility] 0055[facility] Dental [id number] NAIMA BAY 02/03 Discharge Disposition: Home or Self Care 0055C[facility] [id number] Encount er for adminis trative examina tions, unspeci fied RM OBRIEN 02/04 Discharge Disposition: Home or Self Care 0055C[facility] Procedures Combined list of: 1) Procedures from Department of [facility] Affairs facilities [facility], not all VA non-surgical procedures are included; 2) All procedures from the Department of Defense facilities. Procedure Procedure Type Code Date Perfomer Comments Sourc e No data available for this section Ambulatory Pharmacy SPECIAL REPORTS SUCH INSURANCE FORMS, MORE THAN THE INFORMATION CONVEYED IN THE USUAL MEDICAL COMMUNICATIONS OR STANDARD REPORTING FORM 02/04 [facility] CULTURE, TYPING; OTHER METHODS 10/13 [facility] NONINVASIVE EAR OR PULSE OXIMETRY FOR OXYGEN SATURATION; SINGLE DETERMINATION 10/31 [facility] PURE TONE AUDIOMETRY (THRESHOLD), AUTOMATED; AIR ONLY 11/14 [facility]D TELE ASSESS & MGT SRV PROV QUAL NONPHYS HLTH CARE PRO TO EST PAT,PARENT,GUARD NOT ORIG REL ASSESS & MGT SRV PROV W/IN PREV 7 DAYS NOR LEAD ASSESS & MGT SRV/PX W/IN NXT 24 HR/SOON APT;5-10 MIN MED DIS 11/13 DoD ADMINISTRATION OF PATIENT-FOCUSED HEALTH RISK ASSESSMENT INSTRUMENT (EG, HEALTH HAZARD APPRAISAL) WITH SCORING AND DOCUMENTATION, PER STANDARDIZED INSTRUMENT 11/05 DoD BRIEF COMM TECH-BASE SERV,E.G. VIRT CHK-IN,BY [...] AUDIOMETRY (THRESHOLD), AUTOMATED; AIR ONLY 11/29 DoD PSYCHOTHERAPY, 45 MINUTES WITH PATIENT WHEN [...] PSYCHOPHYSICOLOGICAL MONITOR, HEALTH-ORIENT QUESTIONNAIRES), EA 15 MIN [id number] W THE PATIENT; INIT ASSESSMENT 02/01 DoD SCREENING TEST OF VISUAL ACUITY, QUANTITATIVE, [...] 1 VACCINE (SINGLE OR COMBINATION VACCINE/TOXOID) 06/03 [facility] OPHTHALMOLOGICAL SERVICES: MEDICAL EXAMINATION AND EVALUATION, WITH INITIATION OR CONTINUATION OF DIAGNOSTIC AND TREATMENT PROGRAM; INTERMEDIATE, ESTABLISHED PATIENT 04/24 DoD FITTING OF SPECTACLES, EXCEPT FOR APHAKIA; MONOFOCAL 04/17 DoD SCREENING TEST OF VISUAL ACUITY, QUANTITATIVE, BILATERAL 04/10 DoD SCREENING TEST, PURE TONE, AIR ONLY 02/11 [facility] PHYSICAL THERAPY RE-EVALUATION 08/18 DoD IMMUNIZATION ADMINISTRATION [...] MORE AREAS; HOT OR COLD PACKS 07/01 [facility] APPLICATION OF A MODALITY TO 1 OR MORE AREAS; HOT OR COLD PACKS 06/26 [facility] APPLICATION OF A MODALITY TO 1 OR [...] 1 VACCINE (SINGLE OR COMBINATION VACCINE/TOXOID) 06/09 [facility] PHYSICAL THERAPY EVALUATION 06/09 [facility] DETERMINATION OF REFRACTIVE STATE 03/07 [facility] PSYCHIATRIC EVALUATION OF HOSPITAL RECORDS, OTHER PSYCHIATRIC REPORTS, PSYCHOMETRIC AND/OR PROJECTIVE TESTS, AND OTHER ACCUMULATED DATA FOR MEDICALDIAGNOSTIC PURPOSES 01/30 [facility] BRIEF EMOTIONAL/BEHAVIORAL ASSESSMENT (EG, DEPRESSION INVENTORY, ATTENTION-DEFICIT/HYPE RACTIVITY DISORDER [ADHD] SCALE), WITH SCORING AND DOCUMENTATION, PER STANDARDIZED INSTRUMENT 12/19 [facility] INFECTIOUS AGENT ANTIGEN DETECTION BY IMMUNOASSAY WITH DIRECT OPTICAL (IE, VISUAL) OBSERVATION; STREPTOCOCCUS, GROUP A 11/16 [facility] PSYCHIATRIC EVALUATION OF HOSPITAL RECORDS, OTHER PSYCHIATRIC REPORTS, PSYCHOMETRIC AND/OR PROJECTIVE TESTS, AND OTHER ACCUMULATED DATA FOR MEDICALDIAGNOSTIC PURPOSES 11/16 [facility] POSTOPERATIVE FOLLOW-UP VISIT, NORMALLY INCLUDED IN THE SURGICAL PACKAGE, INDICATE THAT EVALUATION & MANAGEMENT SERVICE WAS PERFORMED DURING A POSTOPERATIVE PERIOD REASON RELATED ORIGINAL PROCEDURE 11/15 [facility] BRIEF EMOTIONAL/BEHAVIORAL ASSESSMENT (EG, DEPRESSION INVENTORY, ATTENTION-DEFICIT/HYPE [...] SPECTACLES, EXCEPT FOR APHAKIA; MONOFOCAL 10/27 DoD BLOOD PRESSURE MEASURED (CKD)(DM) 03/06 DoD FITTING OF SPECTACLES, EXCEPT FOR APHAKIA; MONOFOCAL 06/05 DoD SCREENING TEST OF VISUAL ACUITY, QUANTITATIVE, BILATERAL 05/17 DoD TELE ASSESS & MGT SRV PROV QUAL NONPHYS HLTH CARE PRO TO EST PAT,PARENT,GUARD NOT ORIG REL ASSESS & MGT SRV PROV W/IN PREV 7 DAYS NOR LEAD ASSESS & MGT SRV/PX W/IN NXT 24 HR/SOON APT;5-10 MIN MED DIS 04/20 DoD PSYCHIATRIC EVALUATION OF HOSPITAL RECORDS, OTHER [...] ASSESS & MGT SRV PROV QUAL NONPHYS TH CARE PRO TO EST PAT,PARENT,GUARD NOT ORIG [...] SCORING AND DOCUMENTATION, PER STANDARDIZED INSTRUMENT 08/27 [facility] BRIEF EMOTIONAL/BEHAVIORAL ASSESSMENT (EG, DEPRESSION INVENTORY, ATTENTION-DEFICIT/HYPE RACTIVITY DISORDER [ADHD] SCALE), WITH SCORING AND DOCUMENTATION, PER STANDARDIZED INSTRUMENT 07/09 [facility] REMOVAL OF SUTURES OR RUDOLPH REQUIRING ANESTHESIA (IE, GENERAL ANESTHESIA, MODERATE SEDATION) 06/01 [facility] TELEHEALTH ORIGINATING SITE FACILITY FEE 04/22 DoD PSYCHOTHERAPY, 60 MINUTES WITH PATIENT 04/13 DoD PSYCHOTHERAPY, 60 MINUTES WITH PATIENT 03/24 DoD INJECTION(S); SINGLE OR MULTIPLE TRIGGER POINT(S), 1 OR 2 MUSCLE(S) 03/18 DoD PSYCHOTHERAPY, 60 MINUTES WITH PATIENT 03/13 DoD ONLINE ASSESS &MANAG SERV PROVIDE,A QUAL NONPHYS HCP TO AN ESTABLISHED PAT/GUARDIAN,[facility] &MANAG SERV PROVIDE W/IN THE PREV 7 DAYS,USE THE INTERNET/[employer] NETWORK 03/10 DoD PSYCHOTHERAPY, 60 MINUTES WITH PATIENT 03/03 DoD PSYCHOTHERAPY, 60 MINUTES WITH PATIENT 02/16 DoD PSYCHIATRIC DIAGNOSTIC EVALUATION 01/27 [facility] BRIEF EMOTIONAL/BEHAVIORAL ASSESSMENT (EG, DEPRESSION INVENTORY, ATTENTION-DEFICIT/HYPE RACTIVITY DISORDER [ADHD] SCALE), WITH SCORING AND DOCUMENTATION, PER STANDARDIZED INSTRUMENT 11/19 [facility] ARTHROCENTESIS, ASPIRATION AND/OR INJECTION, MAJOR JOINT OR BURSA (EG, SHOULDER, HIP, KNEE, SUBACROMIAL BURSA); WITHOUT ULTRASOUND GUIDANCE 06/17 [facility] POSTOPERATIVE FOLLOW-UP VISIT, NORMALLY INCLUDED IN THE SURGICAL PACKAGE, INDICATE THAT EVALUATION & MANAGEMENT SERVICE WAS PERFORMED DURING A POSTOPERATIVE PERIOD REASON RELATED ORIGINAL PROCEDURE 08/28 [facility] PHOTOREFRACTIVE KERATECTOMY (PRK) 08/23 [facility] OPHTHALMOLOGICAL SERVICES: MEDICAL EXAMINATION AND EVALUATION, WITH INITIATION OR CONTINUATION OF DIAGNOSTIC AND TREATMENT PROGRAM; INTERMEDIATE, ESTABLISHED PATIENT 08/22 [facility] OPHTHALMIC ULTRASOUND, ECHOGRAPHY, DIAGNOSTIC; CORNEAL PACHYMETRY, UNILATERAL OR BILATERAL (DETERMINATION OF CORNEAL THICKNESS) 08/21 [facility] Determination Of Refractive State Determination Of Refractive State 07068 10/27 JANAK MOTT [facility] Ophthalmological New Patient Start Comprehensive Care Ophthalmological New Patient Start Comprehensive Care 37201 10/27 JANAK MOTT [facility] Psychiat Therapy Indiv Appr 45-50 Min W/ Med Eval Managemt 03/08 SAJAN ZARATE [facility] Psychiat Therapy Indiv Appr 45-50 Min W/ Med Eval Managemt 03/02 SAJAN ZARATE [facility] Psychiat Therapy Indiv Appr 45-50 Min W/ Med Eval Managemt 02/22 SAJAN ZARATE [facility] Health And Behav A e mt Each 15 Min Initial A e ment Health And Behav Assessmt Each 15 Min Initial Assessment 69773 02/01 EVAN WEATHERS [facility] Screening Test Of Visual Acuity, Quantitative, Bilateral Screening Test Of Visual Acuity, Quantitative, Bilateral 05123 01/25 MAINE GRANT [facility] Destruction Of Benign Lesion By Cryosurgery Destruction Of Benign Lesion By Cryosurgery 19494 10/21 MAINE GRANT -Cleanse lesion with alcohol [...] re-treatment. f/u sooner if any problems arise. DoD Destruction Of Flat Warts By Cryosurgery Up To 14 Lesions Destruction Of Flat Warts By Cryosurgery Up To 14 Lesions 67889 09/11 JOVI ANDRADE Informed Consent obtained. Patient tolerated procedure. DoD Destruction Of Flat Warts By Cryosurgery Up To 14 Lesions Destruction Of Flat Warts By Cryosurgery Up To 14 Lesions 76853 08/28 JOVI ANDRADE [facility] Immunization Admin By Intranasal / Oral Route One Vaccine Immunization Admin By Intranasal / Oral Route One Vaccine 63579 06/03 SERINA NAPIER Ophthalmological Prior Patient Start Intermediate Level Care Ophthalmological Prior Patient Start Intermediate Level Care 89322 04/24 AKIL CRUZ [facility] Fitting Monofocals (Not For Aphakia) [facility] Fitting Monofocals (Not For Aphakia) 75106 04/17 AKIL CRUZ Determination Of Refractive State Determination Of Refractive State 17276 04/17 AKIL CRUZ Ophthalmological New Patient Start Comprehensive Care Ophthalmological New Patient Start Comprehensive Care 67841 04/17 AKIL CRUZ [facility] Screening Test Of Visual Acuity, Quantitative, Bilateral Screening Test Of Visual Acuity, Quantitative, Bilateral 10974 04/10 MAINE GRANT [facility] Audiogram (Screening) Audiogram (Screening) 96697 02/11 HILDA WOLFE Visual Function Screening Visual Function Screening 54292 02/11 HILDA WOLFE Physical Medicine Physical Therapy Re-Evaluation Physical Medicine Physical Therapy Re-Evaluation 46507 08/18 KWAME ZARATE Immunization Administration One Vaccine Immunization Administration One Vaccine 14544 08/13 YEHUDA BRAGA Human Papilloma Virus Vaccine, Quadrivalent Human Papilloma Virus Vaccine, Quadrivalent 07289 08/13 YEHUDA BRAGA Modalities Iontophoresis Modalities Iontophoresis 43017 08/07 BRAULIO ZAPATA Modalities Iontophoresis Modalities Iontophoresis 73034 08/05 BRAULIO ZAPATA Modalities Iontophoresis Modalities Iontophoresis 05973 07/31 GEORGE VEGA JR Modalities Iontophoresis Modalities Iontophoresis 96851 07/29 GEORGE VEGA JR [facility] Immunization Administration One Vaccine Immunization Administration One Vaccine 13320 07/28 YEHUDA BRAGA Influenza Split Virus Vaccine Age 3+ Years Intramuscular 07/28 YEHUDA BRAGA Modalities Iontophoresis Modalities Iontophoresis 87452 07/25 BRAULIO ZAPATA Modalities Iontophoresis Modalities Iontophoresis 48728 07/22 BRAULIO ZAPATA Physical Medicine Physical Therapy Re-Evaluation Physical Medicine Physical Therapy Re-Evaluation 12776 07/18 KWAME ZARATE Phys Therapy Education Self Care Training - Per 15 Minutes Phys Therapy Education Self Care Training - Per 15 Minutes 97656 07/03 BRAULIO ZAPATA Modalities Ultrasound Modalities Ultrasound 28205 07/03 BRAULIO ZAPATA Physical Therapy: ___ Se ion Segments, 15 Minutes Each Physical Therapy: ___ Session Segments, 15 Minutes Each 85130 07/03 BRAULIO ZAPATA Modalities Cryotherapy Cold Packs Modalities Cryotherapy Cold Packs 51485 07/01 BRAULIO ZAPATA Physical Therapy: ___ Se ion Segments, 15 Minutes Each Physical Therapy: ___ Session Segments, 15 Minutes Each 03695 07/01 BRAULIO ZAPATA Modalities Cryotherapy Cold Packs Modalities Cryotherapy Cold Packs 06203 06/26 BRAULIO ZAPATA Physical Therapy: ___ Se ion Segments, 15 Minutes Each Physical Therapy: ___ Session Segments, 15 Minutes Each 03703 06/26 BRAULIO ZAPATA Modalities Cryotherapy Cold Packs Modalities Cryotherapy Cold Packs 81201 06/24 BRAULIO ZAPATA Physical Therapy: ___ Se ion Segments, 15 Minutes Each Physical Therapy: ___ Session Segments, 15 Minutes Each 89080 06/24 BRAULIO ZAPATA Phys Therapy Education Self Care Training - Per 15 Minutes Phys Therapy Education Self Care Training - Per 15 Minutes 09201 06/17 BRAULIO ZAPATA Modalities Ultrasound Modalities Ultrasound 99443 06/17 BRAULIO ZAPATA Physical Therapy: ___ Se ion Segments, 15 Minutes Each Physical Therapy: ___ Session Segments, 15 Minutes Each 18408 06/17 BRAULIO ZAPATA Phys Therapy Education Self Care Training - Per 15 Minutes Phys Therapy Education Self Care Training - Per 15 Minutes 19490 06/12 BRAULIO ZAPATA Physical Therapy: ___ Se ion Segments, 15 Minutes Each Physical Therapy: ___ Session Segments, 15 Minutes Each 84456 06/12 BRAULIO ZAPATA Modalities Ultrasound Modalities Ultrasound 97674 06/12 BRAULIO ZAPATA Phys Therapy Education Self Care Training - Per 15 Minutes Phys Therapy Education Self Care Training - Per 15 Minutes 56544 06/10 BRAULIO ZAPATA Physical Therapy: ___ Se ion Segments, 15 Minutes Each Physical Therapy: ___ Session Segments, 15 Minutes Each 62526 06/10 BRAULIO ZAPATA Modalities Ultrasound Modalities Ultrasound 36744 06/10 BRAULIO ZAPATA [facility] Physical Medicine Physical Therapy Evaluation Physical Medicine Physical Therapy Evaluation 58927 06/09 KWAME ZARATE [facility] Immunization Administration One Vaccine Immunization Administration One Vaccine 73067 06/09 YEHUDA BRAGA [facility] Human Papilloma Virus Vaccine, Quadrivalent Human Papilloma Virus Vaccine, Quadrivalent 45222 06/09 YEHUDA BRAGA [facility] A e ment & Intervention Blood Pre ure Measured 03/06 MALICK HOFFMAN [facility] Services Fitting Monofocals (Not For Aphakia) [facility] Fitting Monofocals (Not For Aphakia) 19268 06/05 GABINO VELOZ [facility] Determination Of Refractive State Determination Of Refractive State 04750 06/05 GABINO VELOZ [facility] Ophthalmological New Patient Start Comprehensive Care Ophthalmological New Patient Start Comprehensive Care 01830 06/05 GABINO VELOZ [facility] Screening Test Of Visual Acuity, Quantitative, Bilateral Screening Test Of Visual Acuity, Quantitative, Bilateral 17309 05/16 ARIEL LIM [facility] Non-Physician Phone Call To Patient/Provider Brief (5-10min) Non-Physician Phone Call To Patient/Provider Brief (5-10min) 06575 04/23 SARAH DIXON [facility] Pulmonary Function Tests Peak Expiratory Flow Pulmonary Function Tests Peak Expiratory Flow 18027 12/01 JING WEAVER Created by entry in Vitals Module [facility] Fitting Monofocals (Not For Aphakia) [facility] Fitting Monofocals (Not For Aphakia) 40630 09/08 MADELEINE KASPER [facility] Removal Of Sutures Under Anesthesia By Other Surgeon Removal Of Sutures Under Anesthesia By Other Surgeon 26802 06/01 ELAINE LORA [facility] Telehealth originating site facility fee 04/22 AMNA WEST [facility] Psychiatric Evaluation Comprehensive Examination Psychiatric Evaluation Comprehensive Examination 70146 01/28 TANIA KILLIAN [facility] Corticosteroids Injection Intraarticular Left Shoulder Corticosteroids Injection Intraarticular Left Shoulder 34961 06/17 MARY KRAMER [facility] Determination Of Refractive State Determination Of Refractive State 77478 03/07 ANDRES AZAR [facility] Ophthalmological Prior Patient Start Intermediate Level Care Ophthalmological Prior Patient Start Intermediate Level Care 25831 03/07 ANDRES AZAR Psychiatric Evaluation Review of Records and Reports Psychiatric Evaluation Review of Records and Reports 66043 01/30 JUAN MARISCAL Streptococcus Direct Screen Streptococcus Direct Screen 10762 11/16 TARYNHALEIGH BREEN Psychiatric Evaluation Review of Records and Reports Psychiatric Evaluation Review of Records and Reports 44789 11/16 JUAN MARISCAL Postoperative Visit, Without Charge Postoperative Visit, Without Charge 66991 11/15 ANDRES AZAR Photorefractive keratectomy (PRK) 09/25 ANDRES AZAR Postoperative Visit, Without Charge Postoperative Visit, Without Charge 13945 08/28 INDER VARGAS Photorefractive keratectomy (PRK) 08/23 INDER VARGAS [facility] James Ophthalmological Prior Patient Start Comprehensive Care Ophthalmological Prior Patient Start Comprehensive Care 21123 08/22 INDER VARGAS Computerized Corneal Topography Computerized Corneal Topography 03648 08/21 INDER VARGAS Corneal Pachymetry Both Eyes Corneal Pachymetry Both Eyes 08579 08/21 INDER VARGAS Determination Of Refractive State Determination Of Refractive State 80122 08/21 INDER VARGAS Ophthalmological New Patient Start Comprehensive Care Ophthalmological New Patient Start Comprehensive Care 91190 08/21 INDER VARGAS Computerized Corneal Topography Computerized Corneal Topography 84554 03/30 PRAMOD BOX Determination Of Refractive State Determination Of Refractive State 07936 03/30 PRAMOD BOX Ophthalmological Prior Patient Start Comprehensive Care Ophthalmological Prior Patient Start Comprehensive Care 37153 03/30 PRAMOD BOX Determination Of Refractive State Determination Of Refractive State 15030 03/07 ANDRES AZAR Ophthalmological Prior Patient Start Comprehensive Care Ophthalmological Prior Patient Start Comprehensive Care 79779 03/07 ANDRES AZAR Osteopathic Manip Treatment (OMT) 3-4 Body Regions Involved Osteopathic Manip Treatment (OMT) 3-4 Body Regions Involved 09754 02/14 FATUMA CAICEDO Screening Test Of Visual Acuity, Quantitative, Bilateral Screening Test Of Visual Acuity, Quantitative, Bilateral 24416 02/03 JANAK WOODSON [facility] Spectacles Services Fitting Monofocals (Not For Aphakia) Spectacles Services Fitting Monofocals (Not For Aphakia) 83237 10/27 JANAK MOTT [facility] Threshold Audiogram (Pure Tone) Automated Threshold Audiogram (Pure Tone) Automated 0208T ALDEN PATEL [facility] Non-Physician Phone Call To Pt/Provider Intermed (11-20 min) Non-Physician Phone Call To Pt/Provider Intermed (11-20 min) 47108 LEE DALAL [facility] Non-Physician Phone Call To Patient/Provider Brief (5-10min) Non-Physician Phone Call To Patient/Provider Brief (5-10min) 80026 LEE DALAL [facility] Brief communication technology-based service, e.g. virtual check-in, [...] minutes of medical discu ion LENIN GIORDANO [facility] Psychiatric Evaluation Comprehensive Examination Psychiatric Evaluation Comprehensive Examination 98583 GABINO KNUTSON [facility] Psychiatric Evaluation Comprehensive Examination Psychiatric Evaluation Comprehensive Examination 28306 GABINO KNUTSON 90 minute intake for new allegations in FAP. [facility] Psychiatric Therapy Group (Interactive) Psychiatric Therapy Group (Interactive) 06724 GABINO KNUTSON [facility] Waiver services; not otherwise specified (NOS) YOUNG ANDRADE [facility] Psychiatric Evaluation Review of Records and Reports Psychiatric Evaluation Review of Records and Reports 92632 GABINO KNUTSON [facility] Psychiatric Evaluation Review of Records and Reports Psychiatric Evaluation Review of Records and Reports 04977 ANIL MCNULTY additional records review was conducted prior to and after the one-time eval due to inconsistent Pt reporting. 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 Social History Type Response Date Comment [facility] e Tobacco Never-cigarette user Cigarette use:. Never-other tobacco user (not cigarettes) Other Tobacco use:. Ambulatory Pharmacy Sexual Orientation Ambula tory Pharmacy Gender identity Ambulator y Pharmacy Sex Representation Male (finding) Un known Organization This section is an empty social history section. DoD Assessment and Plan Combined list of future care activities from Department of Defense and Veterans Affairs facilities (e.g., assessment and plan notes, appointments, orders, and referrals). Additional future care activities may be listed in the Plan of Care section. Result Assessment and Plan Date Source Assessment and Plan Extracted from:Title : [facility] PUHLES Classification Concern Author: PATO THOMSON PA Date: 02/04/25 1. E ncounter for administrative examinations, unspecified VIRTUAL APPT 34 y/o male seeking medical waiver for PULHES score of P2 d ue to history of thyroid ablation with indefinite oral thyroid replacement. Discussed that PUHLES classifications are completed by [facility] and he will always be P2. There is no medical waiver process for this rather he would need his current Commander to reach out to gaining Commander who could make exception to policy to continue with current PCS. - Would recommend member for upcoming PCS and will advocate on his behalf if gaining Commander has additional questions or concerns - F/u PRN The patient (is) World Wide Qualified. 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 Quite often unanticipated grammatical, syntax, homophones, and other interpretive errors are inadvertently transcribed by the computer software. Please disregard these errors and excuse any errors that have escaped final proofreading. If are any questions regarding documentation, please contact this provider directly. Extracted from:Title: 422 Author: POLLO ORTIZ APA-C Date: 01/20/25 1. A dministrative reason for encounter Record review encounter. Online evaluation and management. Spent >21 m inutes cumulatively on patient request. 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 Does not have minimum PULHES score Due to total thyroidectomy requiring higher doses of Synthroid h is P score=2 DQ from an occupational health standpoint. Medical clearance set to DQ and 422 signed off in ASIMS. PRAP Disposition: no change Aeromedical Disposition: n/a Maj Lucina, [employer], BSC Aeromedical Physician Drying Frame Operator [employer] [facility] [place], [place] Diagnosis code Z 02.9 06947 >21 minutes 70002 11-20 minutes 50981 5-10 minutes Extracted from:Title: Optometry- OHE Author: LV WHITAKER, OD, Optometry Date: 12/01/24 1. E ANGEL, FORMAL OCCUPATIONAL HEALTH PROGRAM [...] Fitness Assessment. LV WHITAKER, Lt Col, OD [employer] Compliance Coordinator [place], [place] 2. B enign neoplasm of right choroid Stable. No concerning characteristics, first documented in 2023. Continue to monitor for changes.? Extracted from:Title: [facility] - [facility] OHE Author: LENIN GIORDANO MD Date: 11/30/24 1. E XAM, FORMAL OCCUPATIONAL HEALTH PROGRAM INCLUDING HEARING CONSERVATION PROGRAM, PERIODIC FOR CONTINUED SURVEILLANCE FOR OCCUPATIONAL WORKPLACE EXPOSURE S member seen for annual occupational health exam. [...] that his neighbor in on-base housing at [facility] had mold testing done that was [...] affect w nl Reviewed audiogram (conducted by [employer]) U TD Reviewed visual acuity screening and [...] at initial OHE n /a MHA/PHA in ASIHI U TD No disqualifying conditions identified. No AUoF concerns identified Member cleared for continued duty To f/u with PCM as needed //SIGNED// LENIN GIORDANO Lt Col, USAF, MC, FS Family Physician/Flight Surgeon [facility] Operational Medicine C jacob BRAVO, [facility] M ain Line DSN/Comm: [phone] / [phone] 2. G raves disease Being followed by [...] f/u with PCM as needed Extracted from:Title: [facility] VIRT - Medical clearance retraining, record review only Author: LENIN GIORDANO MD Date: 11/13/24 1. E ncounter for issue of other medical certificate Asynchronous medical c learance, member not examined or contacted. Record review only ? No active profiles Meeting PULHES/administrative requirements. No new or worsening medical conditions requiring IRILO Member meets requirements for retraining, medical clearance and AF422 completed. //SIGNED// Lt Brett SHAH, DEEPTHI, , FS Family Physician/Flight Surgeon [facility] Operational Medicine C jacob BRAVO, [facility] Ne Guzman DSN/Comm: [phone] / [phone] Extracted from:Title: [facility] finger pain Author: HARMAN LOO DO Date: 10/02/24 Finger pain F ricardo injury that MRI shows no tears, but continues to have poor ROM. -will refer to OT. f/u PRN. Ordered: Referral Request 2.0 - James Loo DO, , DEEPTHI, Family Physician [facility]/Account Associate [facility] Medicine Residency Program in [place], [place] [address] [address] Extracted from:Title: [facility] - MRI request finger pain Author: LENIN [...] completed to review results and recommendations //SIGNED// LENIN GIORDANO, Lt West, USAF, MC, FS Family Physician, [facility] [place], [facility] Ne Guzman DSN/Comm: [phone] / [phone] 2. P lantar fasciitis 33 y.o. ADAF [...] rey is currently OVERDUE for Extracted from:Title: [facility]- Thyroid f/u Author: RUSSELL LYNNE MD Date: 07/07/24 1Davide G raves disease - s/p ablation 10/2022, no [...] PRN - SM no longer going to [employer] training till 2024 Maj Stephen, DEEPTHI, Loom Overhauler [facility] Tobin james ([facility]) [place] [address] Extracted from:Title: [employer]/Synthroid Rnw Author: POLLO ORTIZ APA-C Date: 06/29/24 1. 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 Medical Clearance and 422 signed in ASIMS Provided signed SF600, copy will be uploaded to record Fitness: No restrictions. 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 him from attending [employer] Mobility: World-wide Qualified IMR: Kanu RITTER Disposition: cleared for arming Aeromedical Disposition: n/a Pollo Ortiz, Capt, USAF, BSC Aeromedical Physician Drying Frame Operator [facility] [place], [place] Orders: levothyroxine(Synthroid 150 mcg oral tablet), 1 tab(s), Oral, Sat/////, for thyroid, # 80 tab(s), 0 total refill(s), Maintenance, Deployment prescription, 1 tab(s) Oral Sat/////,Instr:for thyroid, Pharmacy: [facility] [Last filled 06/29/24] levothyroxine(Synthroid 175 mcg oral tablet), 1 tab(s), Oral, Saturday, for thyroid, # 12 tab(s), 0 total refill(s), Maintenance, deployment prescription, 1 tab(s) Oral Saturday,Instr:for thyroid, Pharmacy: [facility] [Last filled 06/29/24] Extracted from:Title: 422 Author: POLLO ORTIZ APA-C Date: 06/17/24 1. A dministrative reason for encounter Record review encounter. Online evaluation and management. Spent >21 m inutes cumulatively on patient request. 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 No disqualifying diagnoses found after review of the available medical record. Patient provided CRB memorandum of FAP allegation dated 19 Aug 2019, not disqualifying. No concerning referrals or medications. Patient is 1 year s /p total thyroidectomy 2/2 Graves Disease, euthyroid with LT4 No current MR/FR/DR/C-code. Medical clearance and 422 signed off in [facility]. Patient will need SF600 for [employer] <30 days prior to class start date ; will require an appointment with patient, it can be done by Capt Ortiz or [facility] provider/PCM. Fitness: No restrictions. Duty: Shaving waiver Mobility: World-wide Qualified IMR: Green, due for seasonal flu PRAP Disposition: no change in arming status Aeromedical Disposition: n/a Capt Lucina, [facility], [facility] Aeromedical Physician Drying Frame Operator [facility] [place], [place] Diagnosis code Z 02.9 42959 >21 minutes 99928 11-20 minutes 74813 5-10 minutes Extracted from:Title: [facility]: shaving waiver renewal Author: AIME CHANEY MD [...] Kanu MEDICATIONS RECONCILED Capt Aime Chaney MD Embroiderer Hand P GY-3 [facility] [address] [place] [address] [place], [place] Staffed By:Justin the above note has been dictated partially or in totality with the assistance of [employer] dictation software. While it was proofread for [...] patient at patients request upon delivery. OD: [phone] OS: [id number] pd: 66 reaper 57-15 5am [id number] Extracted [...] of right eye Not previous documented (Nicola [phone]). Retinal Photos/OCT in clinical images. Recommend rtc in 3-6 months to repeat OCT/photos. as it is a new lesion. No concerning features (size, color, shape), no srf, elevation, no lacunae/halos. D iagnosis: 1 . E XAM, FORMAL OCCUPATIONAL HEALTH PROGRAM INCLUDING HEARING CONSERVATION PROGRAM, PERIODIC FOR CONTINUED SURVEILLANCE FOR OCCUPATIONAL WORKPLACE EXPOSURE Comment: Ordered: Scanning Cmputrizd Ophthlmc Dx Img,Pstr Seg,W/Intrp and Rpt,Uni/Biltrl;Optic Nrve 52225; 01/08/2024 13:59:00 CDT ? Ophthalmological Medical Xm&Eval Compre New Pt 1/> Vst 68556; 01/08/2024 13:59:00 CDT D iagnosis: 2 . 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 Ophthalmological Medical Xm&Eval Compre New Pt 1/> Vst 58897; 01/08/2024 13:59:00 CDT End of Orders Extracted from:Title: CHIRO SPEC- Neck, Thoracic and [...] Px 1/> Areas Each 15 Min Exercises 55133; 08/28/2023 11:49:00 MANUFACTURING [place] ? [address] - Clinic New Level 3; 08/28/2023 11:49:00 MANUFACTURING ENGINEER SUPERVISOR, 25 ? Chiropractic Manipulative Tx Spinal 3-4 Regions 95510; 08/28/2023 11:49:00 MANUFACTURING ENGINEER SUPERVISOR, AT D iagnosis: 2 . L umbago Comment: Chiropractic Diversified Adjustments S robyn posture to [place], SI and L/S A T O rdered: [address] [place] [address] New Level 3; 08/28/2023 11:49:00 MANUFACTURING ENGINEER SUPERVISOR, 25 b GABINO [place] ? Manual Therapy Tqs 1/> Regions Each 15 Minutes 13001; 08/28/2023 11:49:00 MANUFACTURING ENGINEER SUPERVISOR, 59 ? Chiropractic Manipulative Tx Spinal 3-4 Regions 94213; 08/28/2023 11:49:00 MANUFACTURING ENGINEER SUPERVISOR, AT D iagnosis: 3 . C ervicalgia Comment: Chiropractic Diversified Adjustments S upine to C/S A T O rdered: [address] [place] [address] New Level 3; 08/28/2023 11:49:00 MANUFACTURING ENGINEER SUPERVISOR, 25 b GABINO [place] ? Chiropractic Manipulative Tx Spinal 3-4 Regions [address]32; 08/28/2023 11:49:00 MANUFACTURING ENGINEER SUPERVISOR, AT D iagnosis: 4 . C ervical segmental dysfunction Comment: Chiropractic Diversified Adjustments S upine to C/S A T O rdered: [address] [place] [address] New Level 3; 08/28/2023 11:49:00 MANUFACTURING ENGINEER SUPERVISOR, 25 b GABINO [place] ? Chiropractic Manipulative Tx Spinal 3-4 Regions [address]; 08/28/2023 11:49:00 MANUFACTURING ENGINEER SUPERVISOR, AT D iagnosis: 5 . T horacic segmental dysfunction Comment: Chiropractic Diversified Adjustments P sandee T/S A T O rdered: [address] [place] [address] New Level 3; 08/28/2023 11:49:00 MANUFACTURING ENGINEER SUPERVISOR, 25 b GABINO [place] ? Chiropractic Manipulative Tx Spinal 3-4 Regions [address]381; 08/28/2023 11:49:00 MANUFACTURING ENGINEER SUPERVISOR, AT D iagnosis: 6 . L umbar segmental dysfunction Comment: Chiropractic Diversified Adjustments S robyn posture to [place], SI and L/S A T O rdered: [address] [place] [address] New Level 3; 08/28/2023 11:49:00 MANUFACTURING ENGINEER SUPERVISOR, 25 b GABINO [place] ? Chiropractic Manipulative Tx Spinal 3-4 Regions [address]; 08/28/2023 11:49:00 MANUFACTURING ENGINEER SUPERVISOR, AT Diagnosis of C ervicalgia, M54.2 T [...] was allotted and all questions were answered. Sho Levin [facility] Chiropractic E xtern, assisted _ w ith patient care. //SIGNED// Dr. Gabino Rodriges, RISA, RMSK Chiropractic Physician [address] [employer] [employer] Sherif [place], [place] Clinic Main Line DSN/Comm: [phone] / [phone] 08/28/23 13:18:45 Future Appointments Appointment Date: 03/17/2025 02:30:00 PM Scheduled Provider: Location: [facility]-DENTAL Appointment Type: Dental Visit Future Scheduled TestsLaboratoryTSH w/ Reflex FT4 and Total T3 01/20/25 02/16/2025 [id number] [place] Assessment and Plan Extracted from:Title : [facility] PUHLES Classification Concern Author: PATO THOMSON PA Date: 02/04/25 1. E ncounter for administrative examinations, unspecified VIRTUAL APPT 34 y/o male seeking medical waiver for PULHES score of P2 d ue to history of thyroid ablation with indefinite oral thyroid replacement. Discussed that PUHLES classifications are completed by [facility] and he will always be P2. There is no medical waiver process for this rather he would need his current Commander to reach out to gaining Commander who could make exception to policy to continue with current PCS. - Would recommend member for upcoming PCS and will advocate on his behalf if gaining Commander has additional questions or concerns - F/u PRN The patient (is) World Wide Qualified. 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 Quite often unanticipated grammatical, syntax, homophones, and other interpretive errors are inadvertently transcribed by the computer software. Please disregard these errors and excuse any errors that have escaped final proofreading. If are any questions regarding documentation, please contact this provider directly. Extracted from:Title: 422 Author: POLLO ORTIZ APA-C Date: 01/20/25 1. A dministrative reason for encounter Record review encounter. Online evaluation and management. Spent >21 m inutes cumulatively on patient request. Medical [facility] Reviewed bulk mail technician record summary. Does not have minimum PULHES score Due to total thyroidectomy requiring higher doses of Synthroid h is P score=2 DQ from an occupational health standpoint. Medical clearance set to DQ and 422 signed off in ASIMS. PRAP Disposition: no change Aeromedical Disposition: n/a Maj Lucina, [employer], BSC Aeromedical Physician Drying Frame Operator [facility] [place], [place] Diagnosis code Z 02.9 42476 >21 minutes 04743 11-20 minutes 26567 5-10 minutes Extracted from:Title: Optometry- OHE Author: LV WHITAKER, OD, Optometry Date: 12/01/24 1. E ANGEL, FORMAL OCCUPATIONAL HEALTH PROGRAM [...] all components of the Fitness Assessment. LV WHITAKER., Lt Col, OD Irb Compliance Coordinator [place], [place] 2. B enign neoplasm of right choroid Stable. No concerning characteristics, first documented in 2023. Continue to monitor for changes.? Extracted from:Title: [facility] OHE Author: LENIN GIORDANO MD Date: 11/30/24 1. E ANGEL, FORMAL OCCUPATIONAL HEALTH PROGRAM INCLUDING HEARING CONSERVATION PROGRAM, PERIODIC FOR CONTINUED SURVEILLANCE FOR OCCUPATIONAL WORKPLACE EXPOSURE [facility] member seen for annual occupational health exam. -Annual audiogram: C ompleted Mar. H-1 profile, no STS. -Annual vision exams: Thania cisnerose, to schedule P er members is now [...] that his neighbor in on-base housing at [facility] had mold testing done that was [...] affect w nl Reviewed audiogram (conducted by [employer]) U TD Reviewed visual acuity screening and [...] at initial OHE n /a MHA/PHA in ASIHI U TD No disqualifying conditions identified. No AUoF concerns identified Member cleared for continued duty To f/u with PCM as needed //SIGNED// LENIN GIORDANO, Lt Col, USAF, MC, FS Family Physician/Flight Surgeon [employer] C jacob BRAVO, [facility] Ne Guzman DSN/Comm: [phone] / [phone] 2. G raves disease Being followed by [...] f/u with PCM as needed Extracted from:Title: [facility] - Medical clearance retraining, record review only Author: LENIN GIORDANO MD Date: 11/13/24 1. E ncounter for issue of other medical certificate Asynchronous medical c learance, member not examined or contacted. Record review only ? No active profiles Meeting PULHES/administrative requirements. No new or worsening medical conditions requiring IRILO Member meets requirements for retraining, medical clearance and AF422 completed. //SIGNED// Lt Brett SHAH [facility], , Family Physician/Flight Surgeon [facility] Operational Medicine [facility] , [facility] ain Line DSN/Comm: [phone] / [phone] Extracted from:Title: [facility] finger pain Author: HARMAN LOO DO Date: 10/02/24 Finger pain F ricardo injury that MRI shows no tears, but continues to have poor ROM. -will refer to OT. f/u PRN. Ordered: Referral Request 2.0 - DoD Harman Loo DO, [facility], [facility], Family Physician [facility]/Account Associate [facility] Medicine Residency Program in [place], [place] [address] [address] Extracted from:Title: [facility] - MRI request finger pain Author: LENIN GIORDANO MD Date: 07/27/24 1. A vulsion fracture PCM Adriana 33 y.o. ADAF RHD male S member with injury playing football, jammed finger, [...] results and recommendations //SIGNED// Lt Brett SHAH [place], , Family Physician, [facility] [place], [facility] M ain Line DSN/Comm: [phone] / [phone] 2. P lantar fasciitis 33 y.o. ADAF [...] (no action), Member aware. [X] Yellow (Action), M krissy is currently due for [X] RED (Action), M krissy is currently OVERDUE for Extracted from:Title: [facility]- Thyroid f/u Author: RUSSELL LYNNE MD Date: 07/07/24 1. G raves disease - s/p ablation 10/2022, no [...] PRN - SM no longer going to [employer] training till 2024 Maj Stephen, [facility], Loom Overhauler [facility] Tobin james ([facility]) [place] [address] Extracted from:Title: [employer]/Synthroid Rnw Author: POLLO ORTIZ APA-C Date: 06/29/24 1. 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 Medical Clearance and 422 signed in ASIMS Provided signed SF600, copy will be uploaded to record Fitness: No restrictions. 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 him from attending [employer] Mobility: World-wide Qualified IMR: Kanu RITTER Disposition: cleared for arming Aeromedical Disposition: n/a Pollo Ortiz, , [facility], BS Aeromedical Physician Drying Frame Operator [facility] Medical [facility] [place], [place] Orders: levothyroxine(Synthroid 150 mcg oral tablet), 1 tab(s), Oral, Sat/////, for thyroid, # 80 tab(s), 0 total refill(s), Maintenance, Deployment prescription, 1 tab(s) Oral Sat/////,Instr:for thyroid, Pharmacy: [facility] [Last filled 06/29/24] levothyroxine(Synthroid 175 mcg oral tablet), 1 tab(s), Oral, Saturday, for thyroid, # 12 tab(s), 0 total refill(s), Maintenance, deployment prescription, 1 tab(s) Oral Saturday,Instr:for thyroid, Pharmacy: [facility] [Last filled 06/29/24] Extracted from:Title: 422 Author: POLLO ORTIZ APA-C Date: 06/17/24 1. A dministrative reason for encounter Record review encounter. Online evaluation and management. Spent >21 m inutes cumulatively on patient request. 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 No disqualifying diagnoses found after review of the available medical record. Patient provided CRB memorandum of FAP allegation dated 19 Aug 2019, not disqualifying. No concerning referrals or medications. Patient is 1 year s /p total thyroidectomy 2/2 Graves Disease, euthyroid with LT4 No current MR/FR/DR/C-code. Medical clearance and 422 signed off in [facility]. Patient will need SF600 for [employer] <30 days prior to class start date ; will require an appointment with patient, it can be done by Capt Ortiz or [facility] provider/PCM. Fitness: No restrictions. Duty: Shaving waiver Mobility: World-wide Qualified IMR: Green, due for seasonal flu PRAP Disposition: no change in arming status Aeromedical Disposition: n/a Capt Lucina, [facility], [facility] Aeromedical Physician Drying Frame Operator [facility] Medical Group [place] Diagnosis code Z 02.9 04963 >21 minutes 52856 11-20 minutes 66459 5-10 minutes Extracted from:Title: [facility]: shaving waiver renewal Author: AIME CHANEY MD [...] Kanu MEDICATIONS RECONCILED Capt Aime Chaney MD Embroiderer Hand P GY-3 [facility] [address] [place] [address] [place] Staffed By:Justin the above note has been dictated partially or in totality with the assistance of [employer] dictation software. While it was proofread for [...] patient at patients request upon delivery. OD: -[phone] OS: pl-[id number] pd: 66 reaper 57-15 5am [phone] Extracted from:Title: Optometry- CEE/OHE Author: LV WHITAKER, [...] of right eye Not previous documented (Nicola 6802-8048). Retinal Photos/OCT in clinical images. Recommend rtc in 3-6 months to repeat OCT/photos. as it is a new lesion. No concerning features (size, color, shape), no srf, elevation, no lacunae/halos. D iagnosis: 1 . E XAM, FORMAL OCCUPATIONAL HEALTH PROGRAM INCLUDING HEARING CONSERVATION PROGRAM, PERIODIC FOR CONTINUED SURVEILLANCE FOR OCCUPATIONAL WORKPLACE EXPOSURE Comment: Ordered: [facility],Pstr Seg,W/Intrp and Rpt,Uni/Biltrl;Optic Nrve 71847; 01/08/2024 13:59:00 CDT ? Ophthalmological Medical Xm&Eval Compre New Pt 1/> Vst 35685; 01/08/2024 13:59:00 CDT D iagnosis: 2 . 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 Ophthalmological Medical Xm&Eval Compre New Pt 1/> Vst 30450; 01/08/2024 13:59:00 CDT End of Orders Extracted from:Title: CHIRO SPEC- Neck, Thoracic and [...] Px 1/> Areas Each 15 Min Exercises 19351; 08/28/2023 11:49:00 MANUFACTURING [place] ? [address] - Clinic New Level 3; 08/28/2023 11:49:00 MANUFACTURING ENGINEER SUPERVISOR, 25 ? Chiropractic Manipulative Tx Spinal 3-4 Regions 30240; 08/28/2023 11:49:00 MANUFACTURING ENGINEER SUPERVISOR, AT D iagnosis: 2 . L umbago Comment: Chiropractic Diversified Adjustments S robyn posture to Ilium, SI and L/S A T O rdered: 38499 - Clinic New Level 3; 08/28/2023 11:49:00 MANUFACTURING ENGINEER SUPERVISOR, 25 b GABINO [place] ? Manual Therapy Tqs 1/> Regions Each 15 Minutes 22925; 08/28/2023 11:49:00 MANUFACTURING ENGINEER SUPERVISOR, 59 ? Chiropractic Manipulative Tx Spinal 3-4 Regions 11329; 08/28/2023 11:49:00 MANUFACTURING ENGINEER SUPERVISOR, AT D iagnosis: 3 . C ervicalgia Comment: Chiropractic Diversified Adjustments S upine to C/S A T O rdered: [address] [place] [address] New Level 3; 08/28/2023 11:49:00 MANUFACTURING ENGINEER SUPERVISOR, 25 b y GABINO RODRIGES DC ? Chiropractic Manipulative Tx Spinal 3-4 Regions 16223; 08/28/2023 11:49:00 MANUFACTURING ENGINEER SUPERVISOR, AT D iagnosis: 4 . C ervical segmental dysfunction Comment: Chiropractic Diversified Adjustments S upine to C/S A T O rdered: [address] [place] [address] New Level 3; 08/28/2023 11:49:00 MANUFACTURING ENGINEER SUPERVISOR, 25 b y GABINO RODRIGES DC ? Chiropractic Manipulative Tx Spinal 3-4 Regions 68805; 08/28/2023 11:49:00 MANUFACTURING ENGINEER SUPERVISOR, AT D iagnosis: 5 . T horacic segmental dysfunction Comment: Chiropractic Diversified Adjustments P sandee T/S A T O rdered: [address] [place] [address] Level 3; 08/28/2023 11:49:00 MANUFACTURING ENGINEER SUPERVISOR, 25 b y GABINO RODRIGES DC ? Chiropractic Manipulative Tx Spinal 3-4 Regions 07267; 08/28/2023 11:49:00 MANUFACTURING ENGINEER SUPERVISOR, AT D iagnosis: 6 . L umbar segmental dysfunction Comment: Chiropractic Diversified Adjustments S robyn posture to Ilium, SI and L/S A T O rdered: [address] [place] [address] Level 3; 08/28/2023 11:49:00 MANUFACTURING ENGINEER SUPERVISOR, 25 b y GABINO RODRIGES DC ? Chiropractic Manipulative Tx Spinal 3-4 Regions 37666; 08/28/2023 11:49:00 MANUFACTURING ENGINEER SUPERVISOR, AT Diagnosis of C ervicalgia, M54.2 T horacic Spine Pain, M54.6 L umbago M54.5 i s consistent with clinical findings of b iomechanical low back pain.SIJ dysfunction. loss of segmental ROM. _. Patient prognosis is jefry bradford on patient's initial positive response to treatment, [...] was allotted and all questions were answered. Sho Levin [facility] Chi[facility]ic E xtern, assisted _ w ith patient care. //SIGNED// Dr. Gabino Rodriges DC, RMSK Chiropractic Physician 375 Operational Medical Readiness Sherif Boss [facility] Line DSN/Comm: [phone] / [phone] 08/28/23 13:18:45 Future Appointments Appointment Date: 03/17/2025 02:30:00 PM Scheduled Provider: Location: [facility]-DENTAL Appointment Type: Dental Visit Future Scheduled TestsLaboratoryTSH w/ Reflex FT4 and Total T3 01/20/25 02/16/2025 [id number] and Plan Extracted from:Title : [facility] PUHLES Classification Concern Author: PATO THOMSON PA Date: 02/04/25 1. E ncounter for administrative examinations, unspecified VIRTUAL APPT 34 y/o male seeking medical waiver for PULHES score of P2 d ue to history of thyroid ablation with indefinite oral thyroid replacement. Discussed that PUHLES classifications are completed by [facility] and he will always be P2. There is no medical waiver process for this rather he would need his current Commander to reach out to gaining Commander who could make exception to policy to continue with current PCS. - Would recommend member for upcoming PCS and will advocate on his behalf if gaining Commander has additional questions or concerns - F/u PRN The patient (is) World Wide Qualified. 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 Quite often unanticipated grammatical, syntax, homophones, and other interpretive errors are inadvertently transcribed by the computer software. Please disregard these errors and excuse any errors that have escaped final proofreading. If are any questions regarding documentation, please contact this provider directly. Extracted from:Title: 422 Author: POLLO ORTIZ APA-C Date: 01/20/25 1. A dministrative reason for encounter Record review encounter. Online evaluation and management. Spent >21 m inutes cumulatively on patient request. 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 Does not have minimum PULHES score Due to total thyroidectomy requiring higher doses of Synthroid h is P score=2 DQ from an occupational health standpoint. Medical clearance set to DQ and 422 signed off in ASIMS. PRAP Disposition: no change Aeromedical Disposition: n/a Maj Lucina, [employer], BSC Aeromedical Physician Drying Frame Operator [facility] Medical Group [place], [place] Diagnosis code Z 02.9 54097 >21 minutes 88205 11-20 minutes 24619 5-10 minutes Extracted from:Title: Optometry- OHE Author: [...] Fitness Assessment. LV WHITAKER, Lt Col, OD Irb Compliance Coordinator [place] [facility], [place] 2. B enign neoplasm of right choroid Stable. No concerning characteristics, first documented in 2023. Continue to monitor for changes.? Extracted from:Title: [facility] - [facility] OHE Author: LENIN GIORDANO MD Date: 11/30/24 1. E XAM, FORMAL OCCUPATIONAL HEALTH PROGRAM INCLUDING HEARING CONSERVATION PROGRAM, PERIODIC FOR CONTINUED SURVEILLANCE FOR OCCUPATIONAL WORKPLACE EXPOSURE S member seen for annual occupational health exam. [...] that his neighbor in on-base housing at [facility] had mold testing done that was [...] affect w nl Reviewed audiogram (conducted by [employer]) U TD Reviewed visual acuity screening and [...] at initial OHE n /a MHA/PHA in ASIHI U TD No disqualifying conditions identified. No AUoF concerns identified Member cleared for continued duty To f/u with PCM as needed //SIGNED// Lt Brett SHAH USAF, JOSE, FS Family Physician/Flight Surgeon [facility] Operational Medicine Tobin BRAVO, [facility] Guzman DSN/Comm: [phone] / [phone] 2. G raves disease [facility], January 2024 TSH=1.17 and Jun 2024 TSH=0.789 so honestly there is almost certainly minimal clinical benefit to taking a 175mcg dose on Saturday and 150mcg dose the other days, however defer to specialist and PCM -annual TSH UTD, per member they are rechecking it offbase, t o f/u with PCM as needed Extracted from:Title: [facility] VIRT - Medical clearance retraining, record review [...] Physician/Flight Surgeon Base Operational [employer] Tobin BRAVO, [facility] gagandeep Guzman DSN/Comm: [phone] / [phone] Extracted from:Title: [facility] finger pain Author: HARMAN LOO DO Date: 10/02/24 Finger pain F ricardo injury that MRI shows no tears, but continues to have poor ROM. -will refer to OT. f/u PRN. Ordered: Referral Request 2.0 - DoD Harman Loo DO, , [facility], Family Physician [facility] Clinic/Account Associate [facility] Medicine Residency Program in [place], [place] [address] OMRS/[place] [address] Extracted from:Title: [facility] - MRI request finger pain Author: LENIN [...] results and recommendations //SIGNED// Lt Brett SHAH, [facility], , FS Family Physician, [facility] Gera BRAVO, [facility] Ne Guzman DSN/Comm: [phone] / [phone] 2. P lantar fasciitis 33 y.o. ADAF [...] rey is currently OVERDUE for Extracted from:Title: [facility]- Thyroid f/u Author: RUSSELL LYNNE MD Date: 07/07/24 Manuel Lorenz raves disease - s/p ablation 10/2022, [...] PRN - SM no longer going to [facility] training till 2024 Maj Stephen, DEEPTHI, Loom Overhauler [place] Operational Medicine Tobin james ([facility]) [place] [address] Extracted from:Title: [employer]/Synthroid Rnw Author: POLLO ORTIZ APA-C Date: 06/29/24 Manuel Lorenz raves disease 33yo ADAF male, SFS, here for medical clearance for [employer] s/p total thyroidectomy Oct 2022 for Graves [...] reason for encounter Pt will be doing [employer] Qualification Course, starts July 16 Patient provided CRB memorandum of FAP allegation dated 19 Aug 2019, not disqualifying. Medical Clearance and 422 signed in ASIMS Provided signed SF600, copy will be uploaded to record Fitness: No restrictions. 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 him from attending [employer] Mobility: World-wide Qualified IMR: Kanu RIYA Disposition: cleared for arming Aeromedical Disposition: n/a Capt Lucina, [facility], [facility] Aeromedical Physician Drying Frame Operator [facility] Medical Group [place] [facility] [place] Orders: levothyroxine(Synthroid 150 mcg oral tablet), 1 tab(s), Oral, Sat////, for thyroid, # 80 tab(s), 0 total refill(s), Maintenance, Deployment prescription, 1 tab(s) Oral ///,Instr:for thyroid, Pharmacy: [facility] [Last filled 06/29/24] levothyroxine(Synthroid 175 mcg oral tablet), 1 tab(s), Oral, Saturday, for thyroid, # 12 tab(s), 0 total refill(s), Maintenance, deployment prescription, 1 tab(s) Oral Saturday,Instr:for thyroid, Pharmacy: [facility] [Last filled 06/29/24] Extracted from:Title: 422 Author: POLLO ORTIZ APA-C Date: 06/17/24 1. A dministrative reason for encounter Record review encounter. Online evaluation and management. Spent >21 m inutes cumulatively on patient request. 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 No disqualifying diagnoses found after review of the available medical record. Patient provided CRB memorandum of FAP allegation dated 19 Aug 2019, not disqualifying. No concerning referrals or medications. Patient is 1 year s /p total thyroidectomy 2/2 Graves Disease, euthyroid with LT4 No current MR/FR/DR/C-code. Medical clearance and 422 signed off in ASIMS. Patient will need SF600 for [employer] <30 days prior to class start date ; will require an appointment with patient, it can be done by Capt Ortiz or [facility] provider/PCM. Fitness: No restrictions. Duty: Shaving waiver Mobility: World-wide Qualified IMR: Green, due for seasonal flu PRAP Disposition: no change in arming status Aeromedical Disposition: n/a Capt Lucina, [facility] Aeromedical Physician Drying Frame Operator [facility] [place] Diagnosis code Z 02.9 24998 >21 minutes 25026 11-20 minutes 33899 5-10 minutes Extracted from:Title: [facility]: shaving waiver renewal Author: AIME CHANYE MD Date: 04/17/24 1. P seudofolliculitis barbae chronic, controlled --> shaving waiver completed 5 year With considerations to this diagnosis/procedure: Patient i s W WQ; n o disqualifying conditions found. Cleared for AFSC/MOS Duties: Y es Cleared for continued service: Yes Cleared for mobility duties: Yes Cleared for participation in physical fitness program: Yes IMR: Kanu MEDICATIONS RECONCILED Capt Aime Chaney MD Embroiderer Hand P GY-3 [facility] [address] [place] [address] [place] [facility] Staffed By:Justin the above note has been dictated partially or in totality with the assistance of [employer] dictation software. While it was proofread for [...] patient at patients request upon delivery. OD: -0.25-0.26e486 OS: pl-0.04y228 pd: 66 reaper 57-15 5am [id number] Extracted [...] of right eye Not previous documented (Nicola 5775-5823). Retinal Photos/OCT in clinical images. Recommend rtc in 3-6 months to repeat OCT/photos. as it is a new lesion. No concerning features (size, color, shape), no srf, elevation, no lacunae/halos. D iagnosis: 1 . E XAM, FORMAL OCCUPATIONAL HEALTH PROGRAM INCLUDING HEARING CONSERVATION PROGRAM, PERIODIC FOR CONTINUED SURVEILLANCE FOR OCCUPATIONAL WORKPLACE EXPOSURE Comment: Ordered: [facility] Img,Pstr Seg,W/Intrp and Rpt,Uni/Biltrl;Optic Nrve 66901; 01/08/2024 13:59:00 CDT ? Ophthalmological Medical Xm&Eval Compre New Pt 1/> Vst 57444; 01/08/2024 13:59:00 CDT D iagnosis: 2 . 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 Ophthalmological Medical Xm&Eval Compre New Pt /> Vst 70933; 01/08/2024 13:59:00 CDT End of Orders Extracted from:Title: CHIRO SPEC- Neck, Thoracic and [...] Px 1/> Areas Each 15 Min Exercises 49819; 08/28/2023 11:49:00 MANUFACTURING ENGINEER [place] ? [address] - [facility] New Level 3; 08/28/2023 11:49:00 MANUFACTURING ENGINEER SUPERVISOR, 25 ? Chiropractic Manipulative Tx Spinal 3-4 Regions [address]3579; 08/28/2023 11:49:00 MANUFACTURING ENGINEER SUPERVISOR, AT D iagnosis: 2 . L umbago Comment: Chiropractic Diversified Adjustments S robyn posture to Ilium, SI and L/S A T O rdered: [address] [place] [address] New Level 3; 08/28/2023 11:49:00 MANUFACTURING ENGINEER SUPERVISOR, 25 GABINO Herbert DC ? Manual Therapy Tqs 1/> Regions Each 15 Minutes 66746; 08/28/2023 11:49:00 MANUFACTURING ENGINEER SUPERVISOR, 59 ? Chiropractic Manipulative Tx Spinal 3-4 Regions 81187; 08/28/2023 11:49:00 MANUFACTURING ENGINEER SUPERVISOR, AT D iagnosis: 3 . C ervicalgia Comment: Chiropractic Diversified Adjustments S upine to C/S A T O rdered: 66434 - [facility] New Level 3; 08/28/2023 11:49:00 MANUFACTURING ENGINEER SUPERVISOR, 25 GABINO Herbert [place] ? Chiropractic Manipulative Tx Spinal 3-4 Regions 90293; 08/28/2023 11:49:00 MANUFACTURING ENGINEER SUPERVISOR, AT D iagnosis: 4 . C ervical segmental dysfunction Comment: Chiropractic Diversified Adjustments S upine to C/S A T O rdered: 66984 - [facility] New Level 3; 08/28/2023 11:49:00 MANUFACTURING ENGINEER SUPERVISOR, 25 b y GABINO RODRIGES DC ? Chiropractic Manipulative Tx Spinal 3-4 Regions 87905; 08/28/2023 11:49:00 MANUFACTURING ENGINEER SUPERVISOR, AT D iagnosis: 5 . T horacic segmental dysfunction Comment: Chiropractic Diversified Adjustments P sandee T/S A T O rdered: 47652 - Clinic New Level 3; 08/28/2023 11:49:00 MANUFACTURING ENGINEER SUPERVISOR, 25 b y GABINO RODRIGES DC ? 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 L umbar segmental dysfunction Comment: Chiropractic Diversified Adjustments S robyn posture to Ilium, SI and L/S A T O rdered: 43262 - Clinic New Level 3; 08/28/2023 11:49:00 MANUFACTURING ENGINEER SUPERVISOR, 25 b y GABINO RODRIGES DC ? Chiropractic Manipulative Tx Spinal 3-4 Regions 15828; 08/28/2023 11:49:00 MANUFACTURING ENGINEER SUPERVISOR, AT Diagnosis of C ervicalgia, M54.2 T [...] was allotted and all questions were answered. Sho Levin [facility] Chirop[facility] E xtern, assisted _ w [facility] patient care. //SIGNED// Dr. Gabino Rodriges DC, [facility] Chiropractic Physician 375 Operational Medical Readiness Sherif Boss [facility] DSN/Comm: [phone] / [phone] 08/28/23 13:18:45 Future Appointments Appointment Date: 03/17/2025 02:30:00 PM Scheduled Provider: Location: [facility]-D[facility] Appointment Type: Dental Visit Future Scheduled TestsLaboratoryTSH w/ Reflex FT4 and Total T3 01/20/25 02/16/2025 Unknown Organization Functional Status Combined list of recent functional and cognitive assessments recorded at [facility] [employer] and [facility] (VA).VA Functional Alger Measurement (FIM) Scale: 1 = Total Assistance (Subject = 0% +), 2 = Maximal Assistance (Subject = 25% +), 3 = Moderate Assistance (Subject = 50% +), 4 = Minimal Assistance (Subject = 75% +), 5 = Supervision, 6 = Modified Alger (Device), 7 = Complete Alger (Timely, Safely). Assessment Date/Time Source Assessment Type Assessment Skill Assessment Score Assessment Details No data available for this section
[2025-02-16 16:19] LABS: Alanine Aminotransferase 77 U/L (6-50); Albumin Level 4.6 g/dL (3.5-5.1); Alkaline Phosphatase 67 U/L (38-126); Anion Gap 10 mmol/L (4-12); Aspartate Amino Transferase 48 U/L (17-59); Bilirubin,Total 0.5 mg/dL (0.2-1.3); Blood Urea Nitrogen 10 mg/dL (9-20); Calcium 8.9 mg/dL (8.4-10.2); Carbon Dioxide 25 mmol/L (22-30); Chloride 106 mmol/L (98-107); Estimated Glomerular Filt Rate > 60; Glucose 115 mg/dL (65-110); Potassium 3.8 mmol/L (3.4-5.0); Sodium 141 mmol/L (137-145)
== END 2025-02-16 15:39 | disposition home or self-care (01) ==
LOC: ANHLAB 15:40
PROVIDERS: Visit Provider Internal Medicine
DX: E05.00 Thyrotoxicosis with diffuse goiter without thyrotoxic crisis or storm (principal); Z98.890 Other specified postprocedural states; Z90.89 Acquired absence of other organs; E89.0 Postprocedural hypothyroidism; E55.9 Vitamin D deficiency, unspecified
CPT/HCPCS: 36415; 80053

== ENCOUNTER 2025-08-28 13:00 | Outpatient (CLI) | payer OTHER, SELFPAY ==
--- OUTSIDE RECORDS SUMMARY | 2025-08-28 13:02 | XMS_ITS | Clinical Summary ---
Author Organization [facility] Address [address] [place] [address] Care Team Providers Care Agricultural Services Director Name Role Phone None, Provider MD Primary Care Provider Unavaila ble Allergies Active Allergy Reactions Criticality Noted Date Comments Amoxicillin Other (see comment),Rash,Hives Medium 10/08/1993 Pt reports he is unsure of reaction Iodine Hives 04/29/2025 iodine drops Medications levothyroxine (SYNTHROID) 125 MCG tablet Take [...] needed for Wheezing. 8 g 12/21/2024 Active Social History Tobacco Use Types Packs/Day Years Used Date Smoking Tobacco: Never Smokeless Tobacco: Never Alcohol Use Standard Drinks/Week Comments Never 0 (1 standard drink = 0.6 oz pur e alcohol) Sex and Gender Information Value Date Recorded Sex Assigned at Male 04/29/2025 9:01 PM CDT Legal Sex Male 9:00 AM CDT Gender Identity Not on file Sexual Orientation Not on file Last Filed Vital Signs Vital Sign Reading Time Taken Comments Blood Pressure 139/40 04/29/2025 9:00 PM CDT Pulse 59 04/29/2025 9:00 PM CDT Temperature 36.4 C (97.6 F) 04/29/2025 9:00 PM CDT Respiratory Rate 16 04/29/2025 9:00 PM CDT Oxygen Saturation 100% 04/29/2025 9:00 PM CDT Inhaled Oxygen Concentration - - Weight 103.4 kg (228 lb) 04/29/2025 9:00 PM CDT Height 175.3 cm (5' 9) 04/29/2025 9:00 PM CDT Body Mass Index 33.67 04/29/2025 9:00 PM CDT Plan of Treatment Health Maintenance Due Date Last Done Comments Annual Physical 1994 Hepatitis C 2009 COVID-19 Vaccine ( season) 2025 01/06/2021, 12/08/2020 Influenza Adult (#1) 2025 08/10/2023, 08/09/2022, 07/31/2021, Additional history exists DTaP, Tdap and Td Vaccines (8 - Td or Tdap) 09/05/2030 09/05/2020, 08/31/2010, 08/10/2003, Additional history exists Hepatitis B Vaccines Completed 12/20/1999, 04/24/1999, 09/02/1998 Meningococcal Vaccine Completed 08/31/2010, 007 HPV Vaccines Completed 03/16/2019, 07/25, 06/09/2012 Hepatitis A Vaccines Aged Out No long er eligible based on patient's age to complete this topic Meningococcal B Vaccine Aged Out No l onger eligible based on patient's age to complete this topic Pneumococcal Vaccine: Pediatrics (0 to 5 Years) and At-Risk Patients (6 to 49 Years) Aged Out No longer eligible based on patient's age to complete this topic RSV Immunizations Under 20 Months Aged Out No longer eligible based on patient's age to complete this topic Insurance [facility] Care Teams Agricultural Services Director Relationship Specialty Start Date End Date None, Provider, PCP - General UNKNOWN PHYSICIAN SPECIALTY 12/09/23
--- OUTSIDE RECORDS SUMMARY | 2025-08-28 13:02 | XMS_ITS | Clinical Summary ---
Author Organization [facility] Address [address] [place] [address] Care Team Providers Care Apprentice Jockey Name Role Phone Manny Serrato PA-C Primary Care Provider Source Comments [facility],non-owned Affiliates and Associated Physician Practices is amultiple site organization consisting of ambulatory clinics and hospital sitesin [place], [place], [place] and [place]. This disclosure is being madepursuant to the Care Everywhere program and may not contain all information available regarding this patient. 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 Gender Identity Not on file Sexual Orientation Not on file Last Filed Vital Signs Vital Sign Reading Time Taken Comments Blood Pressure 118/72 10/23/2021 1:52 PM SENIOR MECHANICAL DESIGN ENGINEER Pulse 90 10/23/2021 1:52 PM SENIOR MECHANICAL DESIGN ENGINEER Temperature 36.8 C (98.2 F) 10/23/2021 1:52 PM SENIOR MECHANICAL DESIGN ENGINEER Respiratory Rate - - Oxygen Saturation 97% 10/23/2021 1:52 PM SENIOR MECHANICAL DESIGN ENGINEER Inhaled Oxygen Concentration - - Weight 81.5 kg (179 lb 9.6 oz) 10/23/2021 1:52 P M SENIOR MECHANICAL DESIGN ENGINEER Height - - Body Mass Index - - Plan of Treatment Health Maintenance Due Date Last Done Comments HIV SCREENING 2006 HEPATITIS C SCREENING 10/11/2009 DEPRESSION SCREENING 09/23/2024 COVID-19 VACCINE ( season) 2025 01/06/2021, 12/08/2020 INFLUENZA VACCINE (#1) 2025 , 08/29/2020, 06/19/2019, Additional history exists DTAP/TDAP/TD VACCINES [...] age to complete this topic Insurance [facility] Care Teams Apprentice Jockey Relationship Specialty Start Date End Date Manny Serrato PA-C [address] [id number] PCP - General 10/20/21
[2025-08-28 14:15] LABS: Alanine Aminotransferase 61 U/L (6-50); Albumin Level 4.6 g/dL (3.5-5.1); Alkaline Phosphatase 70 U/L (38-126); Anion Gap 6 mmol/L (4-12); Aspartate Amino Transferase 41 U/L (17-59); Bilirubin,Total 1.0 mg/dL (0.2-1.3); Blood Urea Nitrogen 11 mg/dL (9-20); Calcium 9.3 mg/dL (8.4-10.2); Carbon Dioxide 25 mmol/L (22-30); Chloride 107 mmol/L (98-107); Estimated Glomerular Filt Rate > 60; Glucose 81 mg/dL (65-110); Potassium 4.1 mmol/L (3.4-5.0); Sodium 138 mmol/L (137-145); Total Protein 8.3 g/dL (6.3-8.2)
[2025-08-28 14:32] LABS: Free T4 Free Thyroxine 1.36 ng/dL (0.78-2.19)
[2025-08-28 14:47] LABS: Thyroid Stimulating Hormone 0.529 uIU/mL (0.465-4.680)
== END 2025-08-28 13:01 | disposition home or self-care (01) ==
LOC: ANHLAB 13:01
PROVIDERS: Visit Provider Internal Medicine
DX: E89.0 Postprocedural hypothyroidism (principal); E55.9 Vitamin D deficiency, unspecified; E05.00 Thyrotoxicosis with diffuse goiter without thyrotoxic crisis or storm; R74.8 Abnormal levels of other serum enzymes; Z98.890 Other specified postprocedural states; Z90.89 Acquired absence of other organs
CPT/HCPCS: 36415; 80053; 84439; 84443